=== PATIENT | female | born 1945 | race Caucasian/White ===

== ENCOUNTER → 2016-04-14 | Outpatient (CLI) | payer MEDICARE | LOC: RAD 12:43 | PROVIDERS: ATTEND Internal Medicine Critical Care Medicine | DX: R91.1 Solitary pulmonary nodule (principal) | CPT/HCPCS: 71250 ==

== ENCOUNTER 2016-04-28 15:46 | Emergency (ER) | payer MEDICARE ==
[2016-04-28 18:58] LABS: ABSOLUTE BASOPHILS # (AUTO) 0.1 10^3/uL (0.0-0.2); ABSOLUTE EOSINOPHILS # (AUTO) 0.1 10^3/uL (0.0-0.6); ABSOLUTE LYMPHOCYTES (AUTO) 2.1 10^3/uL (0.5-4.7); ABSOLUTE MONOCYTES (AUTO) 0.8 10^3/uL (0.1-1.4); ABSOLUTE NEUT (AUTO) 11.2 10^3/uL (1.7-8.2); BASOPHILS % (AUTO) 0.6 % (0-2); EOSINOPHILS % (AUTO) 0.4 % (0-6); HEMATOCRIT 33.3 % (36.0-47.0); HEMOGLOBIN 10.7 g/dL (12.0-15.5); HGB HCT DIFFERENCE -1.2; MEAN CORPUSCULAR HEMOGLOBIN 26.9 pg (27.0-33.4); MEAN CORPUSCULAR HGB CONC 32.2 g/dL (32.0-36.0); MEAN CORPUSCULAR VOLUME 83 fl (80-97); MONOCYTES % (AUTO) 5.8 % (3-13); RED BLOOD COUNT 3.99 10^6/uL (3.72-5.28); RED CELL DISTRIBUTION WIDTH 13.1 % (11.5-14.0); SEGMENTED NEUTROPHILS % (AUTO) 78.2 % (42-78); WHITE BLOOD COUNT 14.3 10^3/uL (4.0-10.5)
[2016-04-28 19:14] LABS: ALANINE AMINOTRANSFERASE 34 U/L (9-52); ALBUMIN 3.7 g/dL (3.5-5.0); ALKALINE PHOSPHATASE 94 U/L (38-126); ANION GAP 9 (5-19); ASPARTATE AMINO TRANSFERASE 151 U/L (14-36); BILIRUBIN,TOTAL 0.5 mg/dL (0.2-1.3); BLOOD UREA NITROGEN 18 mg/dL (7-20); CALCIUM 10.4 mg/dL (8.4-10.2); CARBON DIOXIDE 35 mmol/L (22-30); CHLORIDE 96 mmol/L (98-107); CREATINE KINASE 43 U/L (30-135); CREATININE RESULT 0.58 mg/dL (0.52-1.25); GLUCOSE 104 mg/dL (75-110); POTASSIUM 4.5 mmol/L (3.6-5.0); SODIUM 140.4 mmol/L (137-145); TOTAL PROTEIN 7.3 g/dL (6.3-8.2)
[2016-04-28 19:26] LABS: CREATINE KINASE MB 1.37 ng/mL (<4.55)
[2016-04-28 19:27] LABS: TROPONIN I < 0.012 ng/mL
--- NOTE | 2016-04-28 20:24 | ER Document Report ---
ED General - General Chief Complaint: Vertigo Stated Complaint: DIZZINESS Time seen by provider: 20:17 Mode of Arrival: Wheelchair Information source: Patient Notes: This is a 70-year-old female with a history of COPD (4 L oxygen), CHF and a history of a lung mass. The patient presents to the emergency room with left lip and tongue numbness with an episode of dizziness and "feeling drunk". The patient states she was sitting with her head down and reading a book for several hours and then when she brought her head up, she had some tenderness in the back of her skull and she had the above symptoms. The dizziness lasted for about 10 minutes. The left lip and tongue numbness lasted for approximately an hour or so. TRAVEL OUTSIDE OF THE [place] IN LAST 30 DAYS: No - HPI Onset: Just prior to arrival Onset/Duration: Sudden Quality of pain: Dull Severity: Mild Pain Level: 1 Associated symptoms: denies: Chills, Nonproductive cough, Productive cough, Fever Exacerbated by: Denies Relieved by: Denies Similar symptoms previously: No Recently seen / treated by doctor: No - Related Data Allergies/Adverse Reactions: ezetimibe [From Zetia] Adverse Reaction (Intermediate, Verified 09/27/15 10:03) feeling of something crawling under skin sertraline HCl [From Zoloft] Adverse Reaction (Intermediate, Verified 09/27/15 10:03) Skin Redness Past Medical History - General Information source: Patient - Social History Smoking Status: Former Smoker Cigarette use (# per day): No Chew tobacco use (# tins/day): No Frequency of alcohol use: None Drug Abuse: None Lives with: Alone Family History: Reviewed & Not Pertinent Patient has suicidal ideation: No Patient has homicidal ideation: No - Past Medical History Cardiac Medical History: Reports: Hx Atrial Fibrillation, Hx Congestive Heart Failure, Hx Hypertension - HYPO Denies: Hx Heart Attack - CHF Pulmonary Medical History: Reports: Hx Asthma, Hx COPD Neurological Medical History: Denies: Hx Cerebrovascular Accident, Hx Seizures GI Medical History: Denies: Hx Hepatitis, Hx Hiatal Hernia, Hx Ulcer Psychiatric Medical History: Denies: Hx Depression Infectious Medical History: Denies: Hx Hepatitis Past Surgical History: Reports: Hx Hysterectomy, Hx Mastectomy - BILAT, Hx Orthopedic Surgery - repair of pinched nerve, Hx Tonsillectomy. Denies: Hx Open Heart Surgery, Hx Pacemaker - Immunizations Hx Diphtheria, Pertussis, Tetanus Vaccination: Yes Hx Pneumococcal Vaccination: 03/30/12 Review of Systems - Review of Systems Constitutional: denies: Chills, Fever EENT: No symptoms reported Cardiovascular: No symptoms reported Respiratory: No symptoms reported Gastrointestinal: No symptoms reported Genitourinary: No symptoms reported Female Genitourinary: No symptoms reported Musculoskeletal: No symptoms reported Skin: No symptoms reported Hematologic/Lymphatic: No symptoms reported Neurological/Psychological: See HPI Physical Exam - Vital signs Vitals: Temp Pulse Resp BP Pulse Ox 98.1 F 77 18 126/66 H 98 04/28/16 16:40 04/28/16 16:40 04/28/16 16:40 04/28/16 16:40 04/28/16 16:40 Notes: Physical exam: GENERAL: The 10-year-old female, alert and oriented 3, no acute distress HEAD: Atraumatic, normocephalic. She has mild tenderness right over the insertion of the trapezius muscle insertion on the posterior skull on the left side. There is no palpable mass, warmth or fluctuance. EYES: Pupils equal round and reactive to light, extraocular movements intact, sclera anicteric, conjunctiva are normal. ENT: TMs normal, nares patent, oropharynx clear without exudates. Moist mucous membranes. NECK: Normal range of motion, supple without lymphadenopathy or JVD. LUNGS: Breath sounds clear to auscultation bilaterally and equal. No wheezes rales or rhonchi. HEART: Regular rate and rhythm without murmurs, rubs or gallops. ABDOMEN: Soft, nontender, normoactive bowel sounds. No guarding, no rebound. No masses appreciated. EXTREMITIES: Normal range of motion, no pitting or edema. No clubbing or cyanosis. NEUROLOGICAL: Cranial nerves II through XII grossly intact. Normal speech, cerebellar good (finger to nose), motor 5 over 5, sensory grossly intact, normal gait. PSYCH: Normal mood, normal affect. SKIN: Warm, Dry, normal turgor, no rashes or lesions noted. Course - Re-evaluation Re-evalutation: 04/28/16 20:21 Note: I discussed the options with the patient. Her symptoms are very consistent with a TIA. She does not want to be admitted. She is not a surgical candidate, so even if she had carotic disease, carotid endarterectomy would not be an option. I discussed the issue of blood then her if she did have any significant blockages in the carotids or any small emboli in the heart and an echo. The patient is adamantly against blood thinner. I have talked to her about taking aspirin, and she will think about it. She currently takes crude oil. She is afraid of bleeding at of significant bruising. She understands the risks that if this is a small irreversible stroke, she may be at risk of figure strokes. However, she has reached the decision to go home. I 've given her good instructions on returning if any worsening symptoms. The patient is accompanied by her sister and both are in agreement to the plan. 04/28/16 20:29 I did walk the patient around and she is feeling better. 04/28/16 20:29 - Vital Signs Vital signs: Temp Pulse Resp BP Pulse Ox 98.4 F 92 18 114/58 L 98 04/28/16 19:23 04/28/16 19:23 04/28/16 16:40 04/28/16 19:23 04/28/16 19:23 - Laboratory Result Diagrams: 04/28/16 18:18 04/28/16 18:18 Laboratory results interpreted by me: 04/28/16 04/28/16 18:18 18:18 WBC 14.3 H Hgb 10.7 L Hct 33.3 L MCH 26.9 L Seg Neutrophils % 78.2 H Absolute Neutrophils 11.2 H Chloride 96 L Carbon Dioxide 35 H Calcium 10.4 H AST 151 H - Diagnostic Test Radiology reviewed: Image reviewed, Reports reviewed - CT of the head shows no acute stroke. Chest x-ray shows no infiltrates (there is some scarring). - EKG Interpretation by Me Rate: Normal Rhythm: NSR - EKG shows normal sinus rhythm with a ventricular rate of 83, no acute ST-T wave changes Discharge - Discharge Clinical Impression: TIA Condition: Stable Disposition: HOME, SELF-CARE Instructions: Transient Ischemic Attack ([facility]) Additional Instructions: Recommendations: Continue current medicines. Consider baby aspirin a day. Follow-up with her doctor: Call the clinic tomorrow if you are going to go to the [facility] primary care [facility]. Return to the emergency room for worsening dizziness, any concerns he getting worse. Referrals: KAY MARTIN MD [Primary Care Provider] - Follow up as needed
[2016-04-28 20:56] VITALS: BP 128/88
--- NOTE | 2016-04-29 00:06 | EKG REPORT ---
SEVERITY:- OTHERWISE NORMAL ECG - SINUS RHYTHM BORDERLINE RIGHT AXIS DEVIATION : Confirmed by: Phani Ellsworth 29-Apr-2016 00:06:13
== END 2016-04-28 20:56 | disposition home or self-care (01) ==
LOC: ER 15:46
DX: G45.9 Transient cerebral ischemic attack, unspecified (principal); R42 Dizziness and giddiness; J44.9 Chronic obstructive pulmonary disease, unspecified; I50.9 Heart failure, unspecified; I10 Essential (primary) hypertension; I48.91 Unspecified atrial fibrillation; J45.909 Unspecified asthma, uncomplicated; Z99.81 Dependence on supplemental oxygen; Z90.710 Acquired absence of both cervix and uterus; Z90.13 Acquired absence of bilateral breasts and nipples; Z87.891 Personal history of nicotine dependence
CPT/HCPCS: 36415; 70450; 71010; 80053; 82550; 82553; 84484; 85025; 93005; 93010; 99284

== ENCOUNTER → 2016-07-23 | Outpatient (CLI) | payer MEDICARE | LOC: RAD 08:30 | PROVIDERS: ATTEND Internal Medicine Critical Care Medicine | DX: R91.8 Other nonspecific abnormal finding of lung field (principal); J18.9 Pneumonia, unspecified organism; J43.9 Emphysema, unspecified; R06.00 Dyspnea, unspecified; R13.19 Other dysphagia; K21.9 Gastro-esophageal reflux disease without esophagitis; Z87.891 Personal history of nicotine dependence | CPT/HCPCS: 71250 ==

== ENCOUNTER 2016-08-12 08:11 | Emergency (ER) | payer MEDICARE ==
--- NOTE | 2016-08-12 08:19 | ER Document Report ---
ED ENT - General Stated Complaint: FOREIGN OBJECT IN THROAT Time Seen by Provider: 08/12/16 08:16 Mode of Arrival: Ambulatory Information source: Patient Notes: 70-year-old oxygen dependent female with severe COPD complaining that she feels food or small piece of chicken go up and down between her posterior pharynx and upper esophagus. She feels like it is stuck. This is happened in the past and she also feels a lot of mucus. No fever or chills. No increased shortness of breath. No chest pain. TRAVEL OUTSIDE OF THE [place] IN LAST 30 DAYS: No - Related Data Allergies/Adverse Reactions: ezetimibe [From Zetia] Adverse Reaction (Intermediate, Verified 09/27/15 10:03) feeling of something crawling under skin sertraline HCl [From Zoloft] Adverse Reaction (Intermediate, Verified 09/27/15 10:03) Skin Redness Past Medical History - General Information source: Patient - Social History Smoking Status: Former Smoker Frequency of alcohol use: None Drug Abuse: None Lives with: Family Family History: Reviewed & Not Pertinent - Past Medical History Cardiac Medical History: Reports: Hx Atrial Fibrillation, Hx Congestive Heart Failure, Hx Hypertension - HYPO Pulmonary Medical History: Reports: Hx Asthma, Hx COPD Past Surgical History: Reports: Hx Hysterectomy, Hx Mastectomy - BILAT, Hx Orthopedic Surgery - repair of pinched nerve, Hx Tonsillectomy - Immunizations Hx Diphtheria, Pertussis, Tetanus Vaccination: Yes Hx Pneumococcal Vaccination: 03/30/12 Review of Systems - Review of Systems Constitutional: No symptoms reported EENT: See HPI Cardiovascular: No symptoms reported Respiratory: No symptoms reported Gastrointestinal: No symptoms reported Genitourinary: No symptoms reported Female Genitourinary: No symptoms reported Musculoskeletal: No symptoms reported Skin: No symptoms reported Hematologic/Lymphatic: No symptoms reported Neurological/Psychological: No symptoms reported Physical Exam - Vital signs Vitals: Temp Pulse Resp BP Pulse Ox 97.9 F 102 H 20 142/88 H 98 08/12/16 08:36 08/12/16 08:36 08/12/16 08:36 08/12/16 08:36 08/12/16 08:36 Interpretation: Normal - General General appearance: Alert Notes: Chronically ill appearing - HEENT Head: Normocephalic, Atraumatic Eyes: Normal Conjunctiva: Normal Pupils: PERRL Mucous membranes: Dry Pharynx: No: Erythema Neck: Supple. No: Lymphadenopathy - Respiratory Respiratory status: No respiratory distress Chest status: Nontender Breath sounds: Normal Chest palpation: Normal - Cardiovascular Rhythm: Regular Heart sounds: Normal auscultation Murmur: No - Abdominal Inspection: Normal Distension: No distension Bowel sounds: Normal Tenderness: Nontender Organomegaly: No organomegaly - Back Back: Normal, Nontender - Extremities General upper extremity: Normal inspection, Nontender, Normal color, Normal ROM , Normal temperature General lower extremity: Normal inspection, Nontender, Normal color, Normal ROM , Normal temperature, Normal weight bearing. No: Lida's sign - Neurological Neuro grossly intact: Yes Cognition: Normal Orientation: AAOx4 [place] Coma Scale Eye Opening: Spontaneous Ana Coma Scale Verbal: Oriented [place] Coma Scale Motor: Obeys Commands [place] Coma Scale Total: 15 Speech: Normal Motor strength normal: LUE, RUE, LLE, RLE Sensory: Normal - Psychological Associated symptoms: Normal affect, Normal mood - Skin Skin Temperature: Warm Skin Moisture: Dry Skin Color: Normal Skin irregularity: Rash Course - Re-evaluation Re-evalutation: 08/11/16 09:[address] Mei how to manage the patient. The soft tissue x-ray is negative. 08/11/16 10:30 pt feels alot better after the glucagon and is drinking moustapha tomas and eating applesauce. She feels like she can go home - Vital Signs Vital signs: Temp Pulse Resp BP Pulse Ox 98.0 F 114 H 20 135/68 H 97 08/12/16 11:20 08/12/16 11:20 08/12/16 08:36 08/12/16 11:20 08/12/16 11:20 Discharge - Discharge Clinical Impression: Sensation of foreign body in throat Chronic obstructive pulmonary disease Qualifiers: COPD type: unspecified COPD Qualified Code(s): J44.9 - Chronic obstructive pulmonary disease, unspecified Condition: Good Disposition: HOME, SELF-CARE Instructions: Chronic Obstructive Lung Disease ([facility]) Additional Instructions: see dr. cervantes for follow up to er if worse Please complete the patient satisfaction survey if you get one, and return it.. If you do not receive a survey, then you can go to the [facility] website, [email or web address] and place your comments about your very good care. Thank you very much. It was a pleasure being your medical provider today. Referrals: TANYA MCCAIN MD [ACTIVE STAFF] - Follow up as needed KAY MARTIN MD [Primary Care Provider] - Follow up as needed
[2016-08-12] MEDS ORDERED: GLUCAGON,HUMAN RECOMB 1 MG INJ SUBCUT ONE (09:10)
[2016-08-12 11:27] VITALS: BP 135/68
== END 2016-08-12 11:24 | disposition home or self-care (01) ==
LOC: ER 08:11
DX: T17.208A Unspecified foreign body in pharynx causing other injury, initial encounter (principal); J44.9 Chronic obstructive pulmonary disease, unspecified; Z87.891 Personal history of nicotine dependence
CPT/HCPCS: 99283; 96372; 70360; J1610

== ENCOUNTER → 2016-08-22 | Outpatient (CLI) | payer MEDICARE ==
--- NOTE | 2016-08-22 13:03 | RADIOLOGY REPORT (SQ) ---
EXAM DESCRIPTION: BARIUM SWALLOW ESOPHAGUS COMPLETED DATE/TIME: 08/22/2016 10:13 am REASON FOR STUDY: DYSPHAGIA R10.13 EPIGASTRIC PAIN COMPARISON: Barium swallow 12/31/2014 CT chest 07/23/2016 Soft tissue neck radiographs 08/12/2016 TECHNIQUE: Under fluoroscopic guidance, patient ingested thin barium. Fluoroscopic spot images and r outine radiographic images acquired and stored on PACS. 12 MM BARIUM TABLET GIVEN: Patient was unable to swallow the 12 mm barium tablet LIMITATIONS: None. FLUOROSCOPY TIME: 1 minutes 45 seconds 9 series of digital images saved to PACS. FINDINGS: NEUROMUSCULAR COORDINATION OF SWALLOW: Normal. No aspiration. ESOPHAGEAL MOTILITY: Prominent tertiary contractions. ESOPHAGEAL MUCOSA: Normal mucosa without masses or ulceration. GASTRO-ESOPHAGEAL JUNCTION: Small hiatal hernia without Schatzki's ring. Mild reflux throughout the study NON-GI TRACT STRUCTURES: Advanced changes of pulmonary fibrosis and obstructive lung disease. Periph erally calcified bilateral breast implants OTHER: No other significant finding. IMPRESSION: Small hiatal hernia with mild gastroesophageal reflux. No Schatzki's ring. Prominent t ertiary contractions. No subglottic aspiration. COMMENT: Quality ID [id number]: Final reports for procedures using fluoroscopy that document radiation exp osure indices, or exposure time and number of fluorographic images (if radiation exposure indices are not available) TECHNICAL DOCUMENTATION: JOB ID: [id number] [employer]- All Rights Reserved
== END ==
LOC: RAD 09:28
PROVIDERS: ATTEND Family Medicine
DX: R10.13 Epigastric pain (principal)
CPT/HCPCS: 74220

== ENCOUNTER 2016-09-08 07:13 | Emergency (ER) | payer MEDICARE ==
[2016-09-08 07:55] LABS: ABSOLUTE BASOPHILS # (AUTO) 0.1 10^3/uL (0.0-0.2); ABSOLUTE EOSINOPHILS # (AUTO) 0.1 10^3/uL (0.0-0.6); ABSOLUTE LYMPHOCYTES (AUTO) 1.4 10^3/uL (0.5-4.7); ABSOLUTE MONOCYTES (AUTO) 0.8 10^3/uL (0.1-1.4); ABSOLUTE NEUT (AUTO) 9.6 10^3/uL (1.7-8.2); BASOPHILS % (AUTO) 0.5 % (0-2); EOSINOPHILS % (AUTO) 0.5 % (0-6); HEMATOCRIT 33.2 % (36.0-47.0); HEMOGLOBIN 10.6 g/dL (12.0-15.5); HGB HCT DIFFERENCE -1.4; LYMPHOCYTES % (AUTO) 11.9 % (13-45); MEAN CORPUSCULAR HEMOGLOBIN 26.4 pg (27.0-33.4); MEAN CORPUSCULAR HGB CONC 31.9 g/dL (32.0-36.0); MEAN CORPUSCULAR VOLUME 83 fl (80-97); MONOCYTES % (AUTO) 6.8 % (3-13); RED BLOOD COUNT 4.02 10^6/uL (3.72-5.28); RED CELL DISTRIBUTION WIDTH 12.5 % (11.5-14.0); SEGMENTED NEUTROPHILS % (AUTO) 80.3 % (42-78); WHITE BLOOD COUNT 11.9 10^3/uL (4.0-10.5)
[2016-09-08 09:29] LABS: ALANINE AMINOTRANSFERASE 25 U/L (9-52); ALBUMIN 3.7 g/dL (3.5-5.0); ALKALINE PHOSPHATASE 94 U/L (38-126); ANION GAP 9 (5-19); ASPARTATE AMINO TRANSFERASE 163 U/L (14-36); BILIRUBIN,DIRECT 0.4 mg/dL (0.0-0.4); BILIRUBIN,TOTAL 0.4 mg/dL (0.2-1.3); BLOOD UREA NITROGEN 12 mg/dL (7-20); CARBON DIOXIDE 37 mmol/L (22-30); CHLORIDE 89 mmol/L (98-107); CREATININE RESULT 0.57 mg/dL (0.52-1.25); GLUCOSE 108 mg/dL (75-110); POTASSIUM 5.2 mmol/L (3.6-5.0); SODIUM 134.8 mmol/L (137-145); TOTAL PROTEIN 7.3 g/dL (6.3-8.2)
--- NOTE | 2016-09-08 10:13 | ER Document Report ---
ED General - General Chief Complaint: Cough Stated Complaint: DIFFICULTY BREATHING Time Seen by Provider: 09/08/16 07:15 Mode of Arrival: Ambulatory Information source: Patient Notes: 70-year-old female presents with complaints of a clot in her throat that she coughed up. Patient notes she feels like it is coming from her left nostril or from the side of her neck on the right. Patient denies any other concerns. pt seen multiple times for similar ocmplaints TRAVEL OUTSIDE OF THE [place] IN LAST 30 DAYS: No - HPI Onset: Other - 1 month Onset/Duration: Persistent Quality of pain: Achy Severity: Mild Pain Level: 1 Associated symptoms: None Exacerbated by: Denies Relieved by: Denies Similar symptoms previously: Yes Recently seen / treated by doctor: Yes - Related Data Allergies/Adverse Reactions: ezetimibe [From Zetia] Adverse Reaction (Intermediate, Verified 09/27/15 10:03) feeling of something crawling under skin sertraline HCl [From Zoloft] Adverse Reaction (Intermediate, Verified 09/27/15 10:03) Skin Redness Past Medical History - Social History Smoking Status: Former Smoker Cigarette use (# per day): No Chew tobacco use (# tins/day): No Smoking Education Provided: No Frequency of alcohol use: None Drug Abuse: None Family History: Reviewed & Not Pertinent - Past Medical History Cardiac Medical History: Reports: Hx Atrial Fibrillation, Hx Congestive Heart Failure, Hx Hypertension - HYPO Denies: Hx Heart Attack - CHF Pulmonary Medical History: Reports: Hx Asthma, Hx COPD Neurological Medical History: Denies: Hx Cerebrovascular Accident, Hx Seizures GI Medical History: Denies: Hx Hepatitis, Hx Hiatal Hernia, Hx Ulcer Psychiatric Medical History: Denies: Hx Depression Infectious Medical History: Denies: Hx Hepatitis Past Surgical History: Reports: Hx Hysterectomy, Hx Mastectomy - BILAT, Hx Orthopedic Surgery - repair of pinched nerve, Hx Tonsillectomy. Denies: Hx Open Heart Surgery, Hx Pacemaker - Immunizations Hx Diphtheria, Pertussis, Tetanus Vaccination: Yes Hx Pneumococcal Vaccination: 03/30/12 Review of Systems - Review of Systems Notes: REVIEW OF SYSTEMS: CONSTITUTIONAL : Denies fever, chills, or sweats. Denies recent illness. EENT: admits to right neck swelling CARDIOVASCULAR: Denies chest pain. Denies palpitations or racing or irregular heart beat. Denies ankle edema. RESPIRATORY: Denies cough, cold, or chest congestion. Denies shortness of breath, difficulty breathing, or wheezing. GASTROINTESTINAL: Denies abdominal pain or distention. Denies nausea, vomiting , or diarrhea. Denies blood in vomitus, stools, or per rectum. Denies black, tarry stools. Denies constipation. GENITOURINARY: Denies difficulty urinating, painful urination, burning, frequency, blood in urine, or discharge. FEMALE GENITOURINARY: Denies vaginal bleeding, heavy or abnormal periods, irregular periods. Denies vaginal discharge or odor. MUSCULOSKELETAL: Denies back or neck pain or stiffness. Denies joint pain or swelling. SKIN: Denies rash, lesions or sores. HEMATOLOGIC : Denies easy bruising or bleeding. LYMPHATIC: Denies swollen, enlarged glands. NEUROLOGICAL: Denies confusion or altered mental status. Denies passing out or loss of consciousness. Denies dizziness or lightheadedness. Denies headache. Denies weakness or paralysis or loss of use of either side. Denies problems with gait or speech. Denies sensory loss, numbness, or tingling. Denies seizures. PHYSICAL EXAMINATION: GENERAL: Well-appearing, well-nourished and in no acute distress. HEAD: Atraumatic, normocephalic. EYES: Pupils equal round and reactive to light, extraocular movements intact, conjunctiva are normal. ENT: Nares patent , possible left nasal polyp, oropharynx clear without exudates. Moist mucous membranes. NECK: Normal range of motion, supple without lymphadenopathy LUNGS: Breath sounds clear to auscultation bilaterally and equal. No wheezes rales or rhonchi. HEART: Regular rate and rhythm without murmurs ABDOMEN: Soft, nontender, nondistended abdomen. No guarding, no rebound. No masses appreciated. Female : deferred Musculoskeletal: Normal range of motion, no pitting or edema. No cyanosis. NEUROLOGICAL: Cranial nerves grossly intact. Normal speech, normal gait. Normal sensory, motor exams PSYCH: Normal mood, normal affect. SKIN: Warm, Dry, normal turgor, no rashes or lesions noted. PSYCHIATRIC: Denies anxiety or stress. Denies depression, suicidal ideation, or homicidal ideation. ALL OTHER SYSTEMS REVIEWED AND NEGATIVE. Dictation was performed using [email or web address] recognition software Course - Re-evaluation Re-evalutation: 09/08/16 10:13 I believe patient's complaints are secondary to nasal polyp which is causing her bleeding. Patient otherwise looks well is in no distress CT has been ordered to rule out any other abnormality 09/08/16 11:53 CT noted no obvious abnormality, I believe the patient's symptoms may be secondary to this nasal irritation, I believe she is having blood come back to her throat notes when she has the symptoms. Otherwise patient looks well is in no distress, she is noted to be tachycardic which appears to be her baseline when she is quite anxious After performing a Medical Screening Examination, I estimate there is LOW risk for CENTRAL CORD SYNDROME, EPIDURAL MASS LESION, SEVERE SPINAL STENOSIS, ARTERIAL DISSECTION, MENINGITIS, or ACUTE CORONARY SYNDROME, thus I consider the discharge disposition reasonable. I have reevaluated this patient multiple times and no significant life threatening changes are noted. The patient and I have discussed the diagnosis and risks, and we agree with discharging home to follow-up on an outpatient basis with the understanding that symptoms and presentations can change. We also discussed returning to the Emergency Department immediately if new or worsening symptoms occur. We have discussed the symptoms which are most concerning (e.g., saddle anesthesia, urinary or bowel incontinence or retention, changing or worsening pain) that necessitate immediate return. - Laboratory Result Diagrams: 09/08/16 07:45 09/08/16 08:55 Laboratory results interpreted by me: 09/08/16 09/08/16 07:45 08:55 WBC 11.9 H Hgb 10.6 L Hct 33.2 L MCH 26.4 L MCHC 31.9 L Seg Neutrophils % 80.3 H Lymphocytes % 11.9 L Absolute Neutrophils 9.6 H Sodium 134.8 L Potassium 5.2 H Chloride 89 L Carbon Dioxide 37 H AST 163 H - Diagnostic Test Radiology reviewed: Image reviewed, Reports reviewed Discharge - Discharge Clinical Impression: Chronic obstruct airways disease Qualifiers: COPD type: chronic bronchitis Chronic bronchitis type: simple Qualified Code(s) : J41.0 - Simple chronic bronchitis Dysphagia Qualifiers: Dysphagia type: oral phase Qualified Code(s): R13.11 - Dysphagia, oral phase Condition: Stable Disposition: HOME, SELF-CARE Additional Instructions: Please contact the following office for an appointment tomorrow or returm immediately if there are any other concerns [facility] Address: [address] [place] [address], [place] [address] Referrals: TRUDY MERCER MD [Primary Care Provider] - Follow up as needed
--- NOTE | 2016-09-08 11:46 | RADIOLOGY REPORT (SQ) ---
EXAM DESCRIPTION: CT SOFT TISSUE NECK WITH COMPLETED DATE/TIME: 09/08/2016 10:59 am REASON FOR STUDY: neck pain COMPARISON: None. TECHNIQUE: Post IV contrasted scanning from skull base through lung apices with review of bone, soft tissue and lung windows. Reconstructed coronal and sagittal MPR images reviewed. All images stored on PACS. All CT scanners at this facility use dose modulation, iterative reconstruction, and/or weight based d osing when appropriate to reduce radiation dose to as low as reasonably achievable (ALARA). [facility]: Dose Right [facility]: CareDose [facility]: Dose Right [facility]: Teradose 4D [facility]: [employer] CONTRAST TYPE AND DOSE: 75 Isovue 370- low osmolar. RENAL FUNCTION: Creatinine 0.57 RADIATION DOSE: mGy. LIMITATIONS: Study is limited somewhat due to artifact related to dental hardware. FINDINGS: SKULL BASE: Intact. MAJOR SALIVARY GLANDS: No solid or cystic masses. No inflammatory changes. LYMPHADENOPATHY: No adenopathy. MUCOSAL MASSES OR ASYMMETRY: No mucosal masses or asymmetry. LARYNX/CORDS: No abnormal findings. VASCULAR STRUCTURES: The major vessels are patent. LUNG APICES: Extensive chronic appearing emphysematous and bullous changes are identified. BONES: Intact. THYROID: Normal size. No masses. PARANASAL SINUSES: Clear. OTHER: No other significant finding. IMPRESSION: Somewhat limited study as noted above. NO SIGNIFICANT FINDING IN THE SOFT TISSUES OF TH E NECK. TECHNICAL DOCUMENTATION: JOB ID: [id number] Quality ID # [id number]: Final reports with documentation of one or more dose reduction techniques (e.g., Au tomated exposure control, adjustment of the mA and/or kV according to patient size, use of iterative reconstruction technique) 2010 [employer]- All Rights Reserved
[2016-09-08 12:22] VITALS: BP 116/67
== END 2016-09-08 12:25 | disposition home or self-care (01) ==
LOC: ER 07:13
DX: R13.11 Dysphagia, oral phase (principal); J41.0 Simple chronic bronchitis; R22.1 Localized swelling, mass and lump, neck; Z87.891 Personal history of nicotine dependence; R00.0 Tachycardia, unspecified
CPT/HCPCS: 36415; 70491; 80053; 85025; 99285

== ENCOUNTER 2016-09-21 11:36 | Inpatient (IN) | payer MEDICARE ==
--- NOTE | 2016-09-21 11:48 | ER Document Report ---
ED Respiratory Problem - General Mode of Arrival: Medic Information source: Patient TRAVEL OUTSIDE OF THE [place] IN LAST 30 DAYS: No - HPI Patient complains to provider of: COPD, Short of breath Duration: Worse/persistent <ELLI DURAND - Last Filed: 09/21/16 12:05> <NAUN LIM - Last Filed: 09/21/16 13:45> - General Stated Complaint: DIFFICULTY BREATHING Time Seen by Provider: 09/21/16 11:40 Notes: Patient is a 70-year-old female who presents to the emergency department today with complaints of shortness of breath. Patient has a history of COPD. Patient states that she has an extensive smoking history however she quit smoking approximately 7 years ago. Patient is on home oxygen, 3.5-4 L. (ELLI DURAND) - Related Data Allergies/Adverse Reactions: ezetimibe [From Zetia] Adverse Reaction (Intermediate, Verified 09/27/15 10:03) feeling of something crawling under skin sertraline HCl [From Zoloft] Adverse Reaction (Intermediate, Verified 09/27/15 10:03) Skin Redness Past Medical History - General Information source: Patient - Social History Smoking Status: Former Smoker Cigarette use (# per day): No Frequency of alcohol use: None Drug Abuse: None Family History: Reviewed & Not Pertinent - Past Medical History Cardiac Medical History: Reports: Hx Atrial Fibrillation, Hx Congestive Heart Failure, Hx Hypertension - HYPO Pulmonary Medical History: Reports: Hx Asthma, Hx COPD Past Surgical History: Reports: Hx Hysterectomy, Hx Mastectomy - BILAT, Hx Orthopedic Surgery - repair of pinched nerve, Hx Tonsillectomy - Immunizations Hx Diphtheria, Pertussis, Tetanus Vaccination: Yes Hx Pneumococcal Vaccination: 03/30/12 <ELLI DURAND - Last Filed: 09/21/16 12:05> Review of Systems - Review of Systems Constitutional: No symptoms reported EENT: No symptoms reported Cardiovascular: No symptoms reported Respiratory: See HPI, Short of breath Gastrointestinal: See HPI, Nausea. denies: Vomiting Genitourinary: No symptoms reported Female Genitourinary: No symptoms reported Musculoskeletal: No symptoms reported Skin: No symptoms reported Hematologic/Lymphatic: No symptoms reported Neurological/Psychological: No symptoms reported -: Yes All other systems reviewed and negative <ELLI DURAND - Last Filed: 09/21/16 12:05> Physical Exam - Vital signs Interpretation: Tachycardic, Hypoxic, Tachypneic - General General appearance: Alert In distress: Moderate - HEENT Head: Normocephalic, Atraumatic Extraocular movements intact: Yes Pupils: PERRL Mucous membranes: Dry Pharynx: Normal Neck: Normal - Respiratory Respiratory status: Respiratory distress, Retractions, Tachypnea Breath sounds: Decreased air movement, Wheezing - Cardiovascular Rhythm: Regular, Tachycardia - Abdominal Inspection: Normal Bowel sounds: Normal Tenderness: Nontender - Back Back: Normal, Nontender - Extremities General upper extremity: Normal inspection, Normal ROM General lower extremity: Normal inspection, Normal ROM - Neurological Neuro grossly intact: Yes Cognition: Normal Orientation: AAOx4 Ana Coma Scale Eye Opening: Spontaneous Industry Coma Scale Verbal: Oriented Industry Coma Scale Motor: Obeys Commands Industry Coma Scale Total: 15 Motor strength normal: LUE, RUE, LLE, RLE - Psychological Associated symptoms: Normal affect, Normal mood - Skin Skin Temperature: Warm Skin Moisture: Dry Skin Color: Normal <NAUN LIM - Last Filed: 09/21/16 13:45> - Vital signs Vitals: Temp Pulse Resp BP Pulse Ox 98.1 F 105 H 30 H 145/83 H 98 09/21/16 11:41 09/21/16 11:41 09/21/16 11:41 09/21/16 11:41 09/21/16 11:41 Course - Laboratory Result Diagrams: 09/21/16 11:50 09/21/16 11:50 <ELLI DURAND - Last Filed: 09/21/16 12:05> - Laboratory Result Diagrams: 09/21/16 11:50 09/21/16 11:50 <NAUN LIM - Last Filed: 09/21/16 13:45> - Re-evaluation Re-evalutation: 09/21/16 13:00 Improving respiratory status. 09/21/16 13:42 Patient is a 70-year-old female who comes in with difficulty breathing. Patient has a history of COPD and heart failure. No evidence for heart failure today. Patient continues to wheeze despite being on BiPAP and receiving nebulizer treatments, Solu-Medrol, and magnesium. Patient does not have any evidence for pneumonia on chest x-ray. Patient does not want to be intubated or put on a ventilator. Patient will be admitted for COPD exacerbation, respiratory distress which is resolving, and hypoxemia. Stable time of admission. Agrees with plan. (NAUN LIM) - Vital Signs Vital signs: Temp Pulse Resp BP Pulse Ox 98.1 F 105 H 24 H 118/99 H 95 09/21/16 11:41 09/21/16 11:41 09/21/16 12:01 09/21/16 12:00 09/21/16 12:01 - Laboratory Laboratory results interpreted by me: 09/21/16 09/21/16 09/21/16 11:50 11:50 11:50 WBC 18.9 H Hgb 9.9 L Hct 31.5 L MCH 25.5 L MCHC 31.5 L Seg Neutrophils % 87.0 H Lymphocytes % 7.4 L Absolute Neutrophils 16.4 H VBG pCO2 75.8 H* VBG HCO3 36.3 H Sodium 131.0 L Chloride 86 L Carbon Dioxide 38 H Glucose 225 H AST 163 H Critical Care Note - Critical Care Note Total time excluding time spent on procedures (mins): 45 - Evaluation and management of respiratory distress, management of airway, couple re-evaluations , coordination of admission, counseling of patient <NAUN LIM - Last Filed: 09/21/16 13:45> Discharge <ELLI DURAND - Last Filed: 09/21/16 12:05> - Discharge Admitting Provider: Will Unit Admitted: Telemetry <NAUN LIM - Last Filed: 09/21/16 13:45> - Discharge Clinical Impression: Respiratory distress, COPD exacerbation, Hypoxemia Condition: Stable Disposition: ADMITTED INPATIENT Referrals: TRUDY MERCER MD [Primary Care Provider] - Follow up as needed Scribe Attestation: 09/21/16 13:44 I personally performed the services described in the documentation, reviewed and edited the documentation which was dictated to the scribe in my presence, and it accurately records my words and actions. (NAUN LIM) Scribe Documentation - Scribe Written by Stephenibe:: Claude Alvarez, 09/21/2016 1206 acting as scribe for :: Tim <ELLI DURAND - Last Filed: 09/21/16 12:05>
[2016-09-21 12:09] LABS: VENOUS BLOOD BASE EXCESS 7.7 mmol/L; VENOUS BLOOD HCO3 36.3 mmol/L (20-32); VENOUS BLOOD PH 7.3 (7.30-7.42)
[2016-09-21 12:13] LABS: ABSOLUTE LYMPHOCYTES (AUTO) 1.4 10^3/uL (0.5-4.7); ABSOLUTE NEUT (AUTO) 16.4 10^3/uL (1.7-8.2); BASOPHILS % (AUTO) 0.2 % (0-2); EOSINOPHILS % (AUTO) 0.1 % (0-6); HEMATOCRIT 31.5 % (36.0-47.0); HEMOGLOBIN 9.9 g/dL (12.0-15.5); HGB HCT DIFFERENCE -1.8; LYMPHOCYTES % (AUTO) 7.4 % (13-45); MEAN CORPUSCULAR HEMOGLOBIN 25.5 pg (27.0-33.4); MEAN CORPUSCULAR HGB CONC 31.5 g/dL (32.0-36.0); MEAN CORPUSCULAR VOLUME 81 fl (80-97); MONOCYTES % (AUTO) 5.3 % (3-13); RED BLOOD COUNT 3.89 10^6/uL (3.72-5.28); RED CELL DISTRIBUTION WIDTH 12.8 % (11.5-14.0); WHITE BLOOD COUNT 18.9 10^3/uL (4.0-10.5)
[2016-09-21 12:14] LABS: VENOUS BLOOD PCO2 75.8 mmHg (35-63)
[2016-09-21 12:16] LABS: PROTHROMBIN TIME 12.9 SEC (11.4-15.4)
[2016-09-21] MEDS: MAGNESIUM SULFATE/D5W 100 ML IV SCH ×2 (12:25→13:24)
[2016-09-21 12:27] LABS: ALANINE AMINOTRANSFERASE 31 U/L (9-52); ALBUMIN 3.5 g/dL (3.5-5.0); ALKALINE PHOSPHATASE 99 U/L (38-126); ANION GAP 7 (5-19); ASPARTATE AMINO TRANSFERASE 163 U/L (14-36); BILIRUBIN,DIRECT 0.4 mg/dL (0.0-0.4); BILIRUBIN,TOTAL 0.4 mg/dL (0.2-1.3); BLOOD UREA NITROGEN 13 mg/dL (7-20); CALCIUM 9.5 mg/dL (8.4-10.2); CARBON DIOXIDE 38 mmol/L (22-30); CHLORIDE 86 mmol/L (98-107); CREATININE RESULT 0.52 mg/dL (0.52-1.25); GLUCOSE 225 mg/dL (75-110); POTASSIUM 4.6 mmol/L (3.6-5.0); TOTAL PROTEIN 7.4 g/dL (6.3-8.2)
--- NOTE | 2016-09-21 12:41 | RADIOLOGY REPORT (SQ) ---
EXAM DESCRIPTION: CHEST SINGLE VIEW COMPLETED DATE/TIME: 09/21/2016 12:31 pm REASON FOR STUDY: sob COMPARISON: 04/28/2016, CT 07/23/2016 EXAM PARAMETERS: NUMBER OF VIEWS: One view. TECHNIQUE: Single frontal radiographic view of the chest acquired. RADIATION DOSE: NA LIMITATIONS: None. FINDINGS: LUNGS AND PLEURA: Severe chronic changes with bullous emphysema and scarring. Mass seen o n CT is not seen on chest radiograph. Severe COPD. MEDIASTINUM AND HILAR STRUCTURES: No masses. Contour normal. HEART AND VASCULAR STRUCTURES: Heart normal in size. Normal vasculature. BONES: No acute findings. HARDWARE: None in the chest. OTHER: No other significant finding. IMPRESSION: Severe chronic changes with COPD and scarring. No acute process. TECHNICAL DOCUMENTATION: JOB ID: [id number]
[2016-09-21 12:42] LABS: TROPONIN I < 0.012 ng/mL
[2016-09-21] MEDS ORDERED: LEVOFLOXACIN 750 MG/D5W RTU 150 ML IV ONE (13:38)
[2016-09-21] MEDS ORDERED: IPRATROPIUM/ALBUTEROL 0.5-2.5 MG/3 ML AMPUL NEB ONE ×2 (13:38→13:41)
[2016-09-21 13:45] LABS: APPEARANCE,URINE CLEAR; BILIRUBIN,URINE NEGATIVE (NEGATIVE); GLUCOSE, URINE NEGATIVE (NEGATIVE); KETONES,URINE NEGATIVE (NEGATIVE); LEUKOCYTE ESTERASE,URINE NEGATIVE (NEGATIVE); NITRITE,URINE NEGATIVE (NEGATIVE); PROTEIN,URINE NEGATIVE (NEGATIVE); URINE SPECIFIC GRAVITY 1.002; UROBILINOGEN,URINE NEGATIVE mg/dL (<2.0)
--- NOTE | 2016-09-21 15:15 | EKG REPORT ---
SEVERITY:- ABNORMAL ECG - SINUS TACHYCARDIA RIGHT ATRIAL ABNORMALITY BORDERLINE RIGHT AXIS DEVIATION : Confirmed by: Phani Ellsworth 21-Sep-2016 15:15:00
[2016-09-21] MEDS ORDERED: IPRATROPIUM/ALBUTEROL 0.5-2.5 MG/3 ML AMPUL NEB PRN (16:14)
[2016-09-21] MEDS ORDERED: ALBUTEROL SULFATE HFA (90 MCG/PUFF) 200 PUFF/8.5 GM MDI IH PRN (17:31)
[2016-09-21] MEDS: METHYLPREDNISOLONE INJ 125 MG/2 ML SDV IV SCH ×2 (18:18→23:17)
[2016-09-21] MEDS: MONTELUKAST SODIUM 10 MG TABLET PO SCH (21:15)
[2016-09-21] MEDS: DILTIAZEM HCL 60 MG TABLET PO SCH (21:16)
[2016-09-21] MEDS: FAMOTIDINE 20 MG TABLET PO SCH (21:16)
[2016-09-21] MEDS ORDERED: FLUTICASONE/SALMETEROL DISKUS 500-50 MCG/DOSE IH ONE (21:28)
[2016-09-21] MEDS: IPRATROPIUM/ALBUTEROL 0.5-2.5 MG/3 ML AMPUL NEB PRN (21:37)
[2016-09-21] MEDS: FLUTICASONE/SALMETEROL DISKUS 500-50 MCG/DOSE IH SCH (21:56)
[2016-09-22 05:05] LABS: ABSOLUTE LYMPHOCYTES (AUTO) 0.5 10^3/uL (0.5-4.7); ABSOLUTE NEUT (AUTO) 7.5 10^3/uL (1.7-8.2); HEMATOCRIT 31.3 % (36.0-47.0); HEMOGLOBIN 9.9 g/dL (12.0-15.5); HGB HCT DIFFERENCE -1.6; LYMPHOCYTES % (AUTO) 5.8 % (13-45); MEAN CORPUSCULAR HEMOGLOBIN 25.9 pg (27.0-33.4); MEAN CORPUSCULAR HGB CONC 31.5 g/dL (32.0-36.0); MEAN CORPUSCULAR VOLUME 82 fl (80-97); MONOCYTES % (AUTO) 0.6 % (3-13); RED BLOOD COUNT 3.81 10^6/uL (3.72-5.28); RED CELL DISTRIBUTION WIDTH 12.9 % (11.5-14.0); SEGMENTED NEUTROPHILS % (AUTO) 93.6 % (42-78); WHITE BLOOD COUNT 8.1 10^3/uL (4.0-10.5)
[2016-09-22 05:35] LABS: ANION GAP 9 (5-19); BLOOD UREA NITROGEN 10 mg/dL (7-20); CALCIUM 9.8 mg/dL (8.4-10.2); CARBON DIOXIDE 37 mmol/L (22-30); CHLORIDE 90 mmol/L (98-107); CREATININE RESULT 0.46 mg/dL (0.52-1.25); GLUCOSE 215 mg/dL (75-110); POTASSIUM 5.1 mmol/L (3.6-5.0); SODIUM 135.7 mmol/L (137-145)
[2016-09-22] MEDS: METHYLPREDNISOLONE INJ 125 MG/2 ML SDV IV SCH ×3 (05:56→17:49)
[2016-09-22] MEDS: DILTIAZEM HCL 60 MG TABLET PO SCH ×3 (05:56→21:41)
[2016-09-22] MEDS: IPRATROPIUM/ALBUTEROL 0.5-2.5 MG/3 ML AMPUL NEB PRN ×2 (08:53→14:43)
[2016-09-22] MEDS: ROFLUMILAST 500 MCG TABLET PO SCH (09:44)
[2016-09-22] MEDS: FAMOTIDINE 20 MG TABLET PO SCH ×2 (09:44→21:41)
[2016-09-22] MEDS: CETIRIZINE 10 MG TABLET PO SCH (09:44)
[2016-09-22] MEDS: MULTIVITAMIN TABLET PO SCH (09:45)
[2016-09-22] MEDS: FLUTICASONE/SALMETEROL DISKUS 500-50 MCG/DOSE IH SCH ×2 (09:45→21:41)
[2016-09-22] MEDS: LEVOFLOXACIN 750 MG/D5W RTU 750 MG/150 ML RTUPB IV SCH (09:45)
[2016-09-22] MEDS: TIOTROPIUM BROMIDE DPI 5 CAP/KIT (18 MCG/CAP) IH SCH (09:46)
[2016-09-22] MEDS ORDERED: LISINOPRIL 10 MG TABLET PO SCH (10:00)
[2016-09-22] MEDS: [UNRECOGNIZED DRUG - OTHER] PO SCH (11:10)
[2016-09-22] MEDS: NYSTATIN/DEXAMETH/DIPHEN SUSP 120 ML PO SCH ×2 (11:12→17:52)
--- NOTE | 2016-09-22 11:14 | PDOC H&P ---
History of Present Illness Admission Date/PCP: 09/21/16 14:00 TRUDY MERCER MD Patient complains of: Shortness of the breath History of Present Illness: MANUEL ARGUETA is a 70 year old female This 70-year-old female with a Significant history of the COPD with advanced emphysema and a 3-4 L oxygen at home and also currently see a Dr. Richey as outpatient. Patients came to the emergency department with increasing the shortness of the breath with increasing more cough and patient's white count was elevated and the patient was started on IV steroid and IV antibioticAnd admitting in the hospital Patient is currently doing much better patient's wheezing is all resolved and patient's white count is also better to Patients have a CT of the chest was done by her pulmonary in March 2016 for some nodules and presence currently follow with him Patient also have abnormal liver enzyme and all workup done in the past and was stable Past Medical History Cardiac Medical History: Reports: Atrial Fibrillation, Congestive Heart Failure , Hypertension - HYPO Denies: Myocardial Infarction - CHF Pulmonary Medical History: Reports: Asthma, Chronic Obstructive Pulmonary Disease (COPD) Neurological Medical History: Denies: Seizures GI Medical History: Denies: Hepatitis, Hiatal Hernia Psychiatric Medical History: Denies: Depression Hematology: Reports: Anemia - IRON INFUSION 4 MO AGO Denies: Sickle Cell Disease Past Surgical History Past Surgical History: Reports: Hysterectomy, Mastectomy - BILAT, Orthopedic Surgery - repair of pinched nerve, Tonsillectomy Denies: Amputation, Pacemaker Social History Smoking Status: Former Smoker Last Time Smoked: 2009 Frequency of Alcohol Use: None Hx Recreational Drug Use: No Drugs: None Hx Prescription Drug Abuse: No Family History Family History: Reviewed & Not Pertinent Parental Family History Reviewed: Yes Children Family History Reviewed: Yes Sibling(s) Family History Reviewed.: Yes Medication/Allergy Home Medications: Albuterol Sulfate [Proair HFA Inhalation Aerosol 8.5 gm MDI] 1 puff IH Q4HP PRN 09/21/16 Cetirizine HCl [Zyrtec 10 mg Tablet] 10 mg PO DAILY 09/21/16 Diltiazem HCl [Cardizem 60 mg Tablet] 60 mg PO Q8 09/21/16 Famotidine [Pepcid 20 mg Tablet] 20 mg PO BID 09/21/16 Fluticasone/Salmeterol [Advair 500-50 Diskus 14 Dose/Diskus] 1 puff IH Q12 09/21 Ipratropium/Albuterol Sulfate [Iprat-Albut 0.5-3(2.5) mg/3 ml] 3 ml IH Q6HP PRN 09/21/16 Lisinopril [Prinivil] 20 mg PO DAILY 09/21/16 Montelukast Sodium [Singulair 10 mg Tablet] 10 mg PO QPM 09/21/16 Multivitamin [Tab-A-Jared] 1 tab PO DAILY 09/21/16 Roflumilast [Daliresp 500 mcg Tablet] 500 mg PO DAILY 09/21/16 Tiotropium [place] [Spiriva Handihaler 5 Cap/Kit (18 Mcg/Cap)] 1 puff IH DAILY 09/21/16 Allergies/Adverse Reactions: ezetimibe [From Zetia] Adverse Reaction (Intermediate, Verified 09/27/15 10:03) feeling of something crawling under skin sertraline HCl [From Zoloft] Adverse Reaction (Intermediate, Verified 09/27/15 10:03) Skin Redness Review of Systems Constitutional: PRESENT: fatigue. ABSENT: chills, fever(s), headache(s), weight gain, weight loss Eyes: ABSENT: visual disturbances Ears: ABSENT: hearing changes Cardiovascular: PRESENT: dyspnea on exertion. ABSENT: chest pain, edema, orthropnea, palpitations Respiratory: PRESENT: cough, dyspnea, sputum. ABSENT: hemoptysis Gastrointestinal: ABSENT: abdominal pain, constipation, diarrhea, hematemesis, hematochezia, nausea, vomiting Genitourinary: ABSENT: dysuria, hematuria Musculoskeletal: ABSENT: joint swelling Integumentary: ABSENT: rash, wounds Neurological: ABSENT: abnormal gait, abnormal speech, confusion, dizziness, focal weakness, syncope Psychiatric: ABSENT: anxiety, depression, homidical ideation, suicidal ideation Endocrine: ABSENT: cold intolerance, heat intolerance, menstrual abnormalities, polydipsia, polyuria Hematologic/Lymphatic: ABSENT: easy bleeding, easy bruising, lymphadenopathy Physical Exam Vital Signs: Temp Pulse Resp BP Pulse Ox 98.3 F 93 22 H 125/59 L 97 09/22/16 07:29 09/22/16 07:29 09/22/16 07:29 09/22/16 07:29 09/22/16 07:29 Intake & Output 09/21/16 09/22/16 09/23/16 06:59 06:59 06:59 Intake Total 1615 Balance 1615 Weight 33.4 kg General appearance: PRESENT: no acute distress, thin Head exam: PRESENT: atraumatic, normocephalic Eye exam: PRESENT: conjunctiva pink, EOMI, PERRLA. ABSENT: scleral icterus Ear exam: PRESENT: normal external ear exam Mouth exam: PRESENT: moist, tongue midline Neck exam: PRESENT: full ROM. ABSENT: carotid bruit, JVD, lymphadenopathy, thyromegaly Respiratory exam: PRESENT: clear to auscultation valerie Cardiovascular exam: PRESENT: RRR. ABSENT: diastolic murmur, rubs, systolic murmur Pulses: PRESENT: normal dorsalis pedis pul, +2 pedal pulses bilateral Vascular exam: PRESENT: normal capillary refill GI/Abdominal exam: PRESENT: normal bowel sounds, soft. ABSENT: distended, guarding, mass, organolmegaly, rebound, tenderness Rectal exam: PRESENT: deferred Neurological exam: PRESENT: alert, awake, oriented to person, oriented to place , oriented to time, oriented to situation, CN II-XII grossly intact. ABSENT: motor sensory deficit Psychiatric exam: PRESENT: appropriate affect, normal mood. ABSENT: homicidal ideation, suicidal ideation Skin exam: PRESENT: dry, intact, warm. ABSENT: cyanosis, rash Results Laboratory Results: 09/22/16 04:03 09/22/16 04:03 09/22/16 09/22/16 04:03 04:03 WBC 8.1 RBC 3.81 Hgb 9.9 L Hct 31.3 L MCV 82 MCH 25.9 L MCHC 31.5 L RDW 12.9 Plt Count 346 Seg Neutrophils % 93.6 H Lymphocytes % 5.8 L Monocytes % 0.6 L Eosinophils % 0.0 Basophils % 0.0 Absolute Neutrophils 7.5 Absolute Lymphocytes 0.5 Absolute Monocytes 0.0 L Absolute Eosinophils 0.0 Absolute Basophils 0.0 Sodium 135.7 L Potassium 5.1 H Chloride 90 L Carbon Dioxide 37 H Anion Gap 9 BUN 10 Creatinine 0.46 L Est GFR ( Amer) > 60 Est GFR (Non-Af Amer) > 60 Glucose 215 H Calcium 9.8 Impressions: Chest X-Ray 09/21/16 11:41 IMPRESSION: Severe chronic changes with COPD and scarring. No acute process. Assessment & Plan - Diagnosis (1) COPD exacerbation Is this a current diagnosis for this admission?: YesPlan: Start the patient on IV Solu-Medrol and consult the pulmonary continues to monitor the patient (2) Respiratory distress Is this a current diagnosis for this admission?: YesPlan: Currently stable will get the ABG (3) Bronchial pneumonia Is this a current diagnosis for this admission?: YesPlan: Continues the IV antibiotic get the sputum culture (4) Hypertension Qualifiers: Hypertension type: essential hypertension Qualified Code(s): I10 - Essential (primary) hypertension Is this a current diagnosis for this admission?: YesPlan: Currently all stable (5) Osteoarthritis Qualifiers: Osteoarthritis location: unspecified site Is this a current diagnosis for this admission?: YesPlan: Stable (6) Congestive heart failure Qualifiers: Congestive heart failure type: diastolic Congestive heart failure chronicity: chronic Qualified Code(s): I50.32 - Chronic diastolic ( congestive) heart failure Is this a current diagnosis for this admission?: YesPlan: Currently stable with current medications (7) Pulmonary nodule Is this a current diagnosis for this admission?: YesPlan: Patient's currently see her Dr. rich will get the CT of the chest - Time Medications reviewed and adjusted accordingly: Yes Anticipated discharge: Home Within: Other - Inpatient Certification Medical Necessity: Need Close Monitoring Due to Risk of Patient Decompensation, Need for IV Antibiotics Post Hospital Care: D/C Carton Wrapper Documentation - Plan Summary Plan Summary: Discussed with the patient about the all the test results patient is getting better will continues to current medications and adjust the dose of the Solu- Medrol
--- NOTE | 2016-09-22 12:40 | Physician Advisory Note ---
Physician Advisor ProgressNote .: Pursuant to the plan for Wendi Ford, I have reviewed the medical record for this patient. Physician Advisor Statement: Nice documentation of chronic diastolic CHF. Please consider documentin. "Acute on Chronic hypoxemic & hypercarbic respiratory failure requiring 3.5- 4L O2 at baseline, with accessory muscle use & retractions in ED, requiring Bipap initially" 2. *Documentation needs to make explicit each day why pt not clinically safe for d/c that day. - H&P currently makes need for 09/21 MN clear but not 09/22 MN clear. Feel free to use points below w/which you agree 3. "Possible bronchial pneumonia, suspect gram-negative given severe COPD" - vs. "Acute bronchitis" ? 4. "Acute hyponatremia, suspect due to " 5. "____ Afib" - paroxysmal or persistent? 6. "underweight with protein-calorie malnutrition, mod-severe, with BMI 14.9, BUN 10, Cr 0.46, ____[?wt loss, ?appetite loss, ]" [if possible, give specifics on intake, wt loss, loss of SQ fat & muscle mass, diminished hand lime kiln and recausticizing operator strength, & clinical importance such as (A) nutritional assessment ordered, (B) modified diet or supplements ordered, (C) additional labs ordered, (D) prolonged wound healing time, (E) delayed infxn clearance] 7. "SIRS, POA, due to infxn - but I do not believe pt had sepsis" 8. "thrush" ? Discussion: 70yo w/COPD - severe bullous emphysema w/scarring per CXR report - & chronic hypoxemic & hypercarbic resp failure, chronic diastolic CHF, chronic anemia felt to be due to Fe defic (?nutritional?), ___ Afib, HTN, ?hypotension, pulmonary nodules and abnormal LFTs without clear etiology yet found, bilat mastectomy due to , hyst presented w/SOB, tachycardia, tachypnea, reported hypoxemia (per ED dr), "mod distress, (+)retractions, wheezing, decreased air movement, continues to wheeze despite Bipap & nebs, Solumedrol, Mag IV [& Levaquin IV]". - This was after pt already had had improvement in initial work of breathing after Solumedrol/neb via EMS per ED nursing report. HR 105, RR30, WBC 18.9, BP 145/83, sat 98% on 4L O2, VBG w/pH 7.30, pCO2 75.8, bicarb 36.3, Na 131, glc 225. Initial attending ordered prn nebs, Advair, IV LEvaquin, IV Solumedrol 125 q6h, Daliresp, Spiriva, Singulair. Next day, 09/22, pt's usual attending did H&P, stating pt much improved, "NAD", thin, CTABilat, "RRR", with HR 93, RR22. He consulted pulmonology, ordered CT chest, continued IV abx, adjusted dose of Solumedrol from tremendous dose to high dose. He noted plan for sputum cx, & ordered another ABG. H&P does not make explicit why this "much improved", "NAD & CTAB" pt couldn't yet go home. However, pt has has severe underlying co-morbidities, had persistent tachypnea 20s-30s until late pm 09/21, and persistent tachycardia as high as 115 ever since arrival, so pt's vitals have not been stable. Pt has pulmonary nodules and elevated LFTs, which would lead a reasonable attg to be concerned for possible underlying lung CA, which could further compromise lung function acutely, and he has ordered CT to re-evaluate these. He is also concerned enough about pt that he feels need to consult risk analyst even though pt is clinically better than the day before. Apparently, pt is still not back to baseline Appropriate for Inpt status, though needs more explicit documentation of attending's appropriate thinking/concerns to support status. CK
[2016-09-22 12:53] LABS: ARTERIAL BLOOD BASE EXCESS 9.7 mmol/L; ARTERIAL BLOOD O2 SATURATION 96.6 % (94-98)
--- NOTE | 2016-09-22 14:51 | RADIOLOGY REPORT (SQ) ---
EXAM DESCRIPTION: CT CHEST WITHOUT COMPLETED DATE/TIME: 09/22/2016 2:32 pm REASON FOR STUDY: copd/pulmonry nodule COMPARISON: CT chest 07/23/2016, 04/14/2016, 01/02/2016, 10/02/2015, 02/10/2014, 03/10/2007 TECHNIQUE: CT scan performed of the chest without intravenous contrast. Images reviewed with lung, soft tissue and bone windows. Reconstructed coronal and sagittal MPR images reviewed. All images st ored on PACS. All CT scanners at this facility use dose modulation, iterative reconstruction, and/or weight based d osing when appropriate to reduce radiation dose to as low as reasonably achievable (ALARA). [facility]: Dose Right [facility]: CareDose [facility]: Dose Right [facility]: Teradose 4D [facility]: [employer] RADIATION DOSE: Up-to-date CT equipment and radiation dose reduction techniques were employed. CTDIv ol: 2.8 mGy. DLP: 103 mGy-cm. mGy. LIMITATIONS: No technical limitations. FINDINGS: LUNGS AND PLEURA: End-stage appearance of obstructive lung disease with upper lobe predomi nant pleural-parenchymal scarring. There are thin-walled cavities in the right and left posterior up per lobes unchanged. In the superior segment left lower lobe, a thick walled cavity measuring 2.4 x 1.8 cm in size is pres ent, smaller than on 07/23/2016 when it measures 3.6 x 2.6 cm in size and appeared filled with fluid. On scans previous to 07/23/2016, this lesion was cavitary and similar in size to the current study. No pleural effusions. No pneumothorax. HILAR AND MEDIASTINAL STRUCTURES: No identified masses or abnormal nodes. No obvious aneurysm. HEART AND VASCULAR STRUCTURES: No aneurysm. No pericardial effusion. UPPER ABDOMEN: No significant findings. Limited exam. THYROID AND OTHER SOFT TISSUES: No masses. No adenopathy. Peripherally calcified breast implants ar e present. BONES: No significant finding. HARDWARE: None in the chest. OTHER: No other significant findings. IMPRESSION: End-stage appearance of obstructive lung disease with thin-walled cavities in the bilate ral upper lobes. Cavitary lesion in the superior segment left lower lobe is similar compared to studies pre dating 06/29. TECHNICAL DOCUMENTATION: JOB ID: [id number] Quality ID # [id number]: Final reports with documentation of one or more dose reduction techniques (e.g., Au tomated exposure control, adjustment of the mA and/or kV according to patient size, use of iterative reconstruction technique) 2010 [employer]- All Rights Reserved
[2016-09-22] MEDS: MONTELUKAST SODIUM 10 MG TABLET PO SCH (21:41)
[2016-09-23] MEDS: NYSTATIN/DEXAMETH/DIPHEN SUSP 120 ML PO SCH ×5 (00:31→23:25)
[2016-09-23] MEDS: METHYLPREDNISOLONE INJ 125 MG/2 ML SDV IV SCH ×2 (00:32→05:25)
[2016-09-23 05:04] LABS: HEMATOCRIT 29.6 % (36.0-47.0); HEMOGLOBIN 9.5 g/dL (12.0-15.5); HGB HCT DIFFERENCE -1.1; MEAN CORPUSCULAR HEMOGLOBIN 25.8 pg (27.0-33.4); MEAN CORPUSCULAR VOLUME 81 fl (80-97); RED BLOOD COUNT 3.68 10^6/uL (3.72-5.28); RED CELL DISTRIBUTION WIDTH 12.8 % (11.5-14.0); WHITE BLOOD COUNT 15.9 10^3/uL (4.0-10.5)
[2016-09-23 05:15] LABS: ANION GAP 8 (5-19); BLOOD UREA NITROGEN 21 mg/dL (7-20); CALCIUM 10.3 mg/dL (8.4-10.2); CARBON DIOXIDE 39 mmol/L (22-30); CHLORIDE 86 mmol/L (98-107); CREATININE RESULT 0.57 mg/dL (0.52-1.25); GLUCOSE 204 mg/dL (75-110); POTASSIUM 5.2 mmol/L (3.6-5.0); SODIUM 132.6 mmol/L (137-145)
[2016-09-23] MEDS: DILTIAZEM HCL 60 MG TABLET PO SCH ×3 (05:25→21:32)
[2016-09-23 05:42] LABS: BASOPHILS % (MANUAL) 0 % (0-2); EOSINOPHILS % (MANUAL) 0 % (0-6); LYMPHOCYTES % (MANUAL) 4 % (13-45); TOTAL CELLS COUNTED 100
[2016-09-23 05:43] LABS: RBC MORPHOLOGY COMMENT NORMO-CYTIC/CHROMIC; TOXIC GRANULATION SLIGHT; TOXIC VACUOLATION PRESENT
[2016-09-23] MEDS: IPRATROPIUM/ALBUTEROL 0.5-2.5 MG/3 ML AMPUL NEB PRN ×3 (06:13→19:47)
[2016-09-23] MEDS: [UNRECOGNIZED DRUG - OTHER] PO SCH (07:26)
[2016-09-23] MEDS: LEVOFLOXACIN 750 MG/D5W RTU 750 MG/150 ML RTUPB IV SCH (09:24)
[2016-09-23] MEDS: MULTIVITAMIN TABLET PO SCH (09:24)
[2016-09-23] MEDS: ROFLUMILAST 500 MCG TABLET PO SCH (09:24)
[2016-09-23] MEDS: CETIRIZINE 10 MG TABLET PO SCH (09:24)
[2016-09-23] MEDS: FLUTICASONE/SALMETEROL DISKUS 500-50 MCG/DOSE IH SCH ×2 (09:24→21:30)
[2016-09-23] MEDS: LISINOPRIL 10 MG TABLET PO SCH (09:24)
[2016-09-23] MEDS: FAMOTIDINE 20 MG TABLET PO SCH ×2 (09:24→21:32)
[2016-09-23] MEDS: TIOTROPIUM BROMIDE DPI 5 CAP/KIT (18 MCG/CAP) IH SCH (09:25)
--- NOTE | 2016-09-23 09:58 | PDOC PROGRESS REPORT ---
Subjective Progress Note for:: 09/23/16 Subjective:: Patient is currently doing fair much better compared to yesterday. Denied any chest pain denied any shortness of breath. Patient's's was not to hesitate to see her doctor Curseen yesterday and insists that Dr. rich, and see it but Dr. rich is not data warehouse consultant Physical Exam Vital Signs: Temp Pulse Resp BP Pulse Ox 98.2 F 95 22 H 104/60 100 09/23/16 07:25 09/23/16 07:25 09/23/16 07:25 09/23/16 07:25 09/23/16 07:25 Intake & Output 09/22/16 09/23/16 09/24/16 06:59 06:59 06:59 Intake Total 1615 2460 Balance 1615 2460 Weight 33.4 kg 34.6 kg General appearance: PRESENT: no acute distress, well-developed, well-nourished Head exam: PRESENT: atraumatic, normocephalic Eye exam: PRESENT: conjunctiva pink, EOMI, PERRLA. ABSENT: scleral icterus Ear exam: PRESENT: normal external ear exam Mouth exam: PRESENT: moist, tongue midline Neck exam: PRESENT: full ROM. ABSENT: carotid bruit, JVD, lymphadenopathy, thyromegaly Respiratory exam: PRESENT: clear to auscultation valerie Cardiovascular exam: PRESENT: RRR. ABSENT: diastolic murmur, rubs, systolic murmur Pulses: PRESENT: normal dorsalis pedis pul, +2 pedal pulses bilateral Vascular exam: PRESENT: normal capillary refill GI/Abdominal exam: PRESENT: normal bowel sounds, soft. ABSENT: distended, guarding, mass, organolmegaly, rebound, tenderness Rectal exam: PRESENT: deferred Neurological exam: PRESENT: alert, awake, oriented to person, oriented to place , oriented to time, oriented to situation, CN II-XII grossly intact. ABSENT: motor sensory deficit Psychiatric exam: PRESENT: appropriate affect, normal mood. ABSENT: homicidal ideation, suicidal ideation Skin exam: PRESENT: dry, intact, warm. ABSENT: cyanosis, rash Results Laboratory Results: 09/23/16 04:15 09/23/16 04:15 09/22/16 09/23/16 09/23/16 12:37 04:15 04:15 WBC 15.9 H RBC 3.68 L Hgb 9.5 L Hct 29.6 L MCV 81 MCH 25.8 L MCHC 32.0 RDW 12.8 Plt Count 398 Seg Neutrophils % Not Reportable Lymphocytes % Not Reportable Monocytes % Not Reportable Eosinophils % Not Reportable Basophils % Not Reportable Absolute Neutrophils Not Reportable Absolute Lymphocytes Not Reportable Absolute Monocytes Not Reportable Absolute Eosinophils Not Reportable Absolute Basophils Not Reportable Carbonic Acid 1.67 H HCO3/H2CO3 Ratio 21:1 ABG pH 7.43 ABG pCO2 55.6 H ABG pO2 86.7 ABG HCO3 35.7 H ABG O2 Saturation 96.6 ABG Base Excess 9.7 FiO2 3.5L Sodium 132.6 L Potassium 5.2 H Chloride 86 L Carbon Dioxide 39 H Anion Gap 8 BUN 21 H Creatinine 0.57 Est GFR ( Amer) > 60 Est GFR (Non-Af Amer) > 60 Glucose 204 H Calcium 10.3 H 09/23/16 04:15 NT-Pro-B Natriuret Pep 527 Impressions: Chest X-Ray 09/21/16 11:41 IMPRESSION: Severe chronic changes with COPD and scarring. No acute process. Chest CT 09/22/16 00:00 IMPRESSION: End-stage appearance of obstructive lung disease with thin-walled cavities in the bilateral upper lobes. Cavitary lesion in the superior segment left lower lobe is similar compared to studies pre dating 07/23/2016. Assessment & Plan - Diagnosis (1) COPD exacerbation Is this a current diagnosis for this admission?: YesPlan: Start the patient on IV Solu-Medrol and consult the pulmonary continues to monitor the patient (2) Respiratory distress Is this a current diagnosis for this admission?: YesPlan: Currently stable will get the ABG (3) Bronchial pneumonia Is this a current diagnosis for this admission?: YesPlan: Continues to IV antibiotic (4) Hypertension Qualifiers: Hypertension type: essential hypertension Qualified Code(s): I10 - Essential (primary) hypertension Is this a current diagnosis for this admission?: YesPlan: Currently all stable (5) Osteoarthritis Qualifiers: Osteoarthritis location: unspecified site Is this a current diagnosis for this admission?: YesPlan: Stable (6) Congestive heart failure Qualifiers: Congestive heart failure type: diastolic Congestive heart failure chronicity: chronic Qualified Code(s): I50.32 - Chronic diastolic ( congestive) heart failure Is this a current diagnosis for this admission?: YesPlan: Currently stable with current medications (7) Pulmonary nodule Is this a current diagnosis for this admission?: YesPlan: The CT scan from March nothing change - Time Time Spent with patient: 15-24 minutes Medications reviewed and adjusted accordingly: Yes Anticipated discharge: Home Within: Other - Inpatient Certification Medical Necessity: Need Close Monitoring Due to Risk of Patient Decompensation 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
[2016-09-23] MEDS ORDERED: METHYLPREDNISOLONE INJ 125 MG/2 ML SDV IV SCH (14:00)
[2016-09-23] MEDS: METHYLPREDNISOLONE INJ 40 MG/1 ML SDV IV SCH ×2 (14:31→21:32)
--- NOTE | 2016-09-23 17:51 | PDOC CONSULTATION ---
Consultation Consult Date: 09/22/16 Attending physician:: TRUDY MERCER Consult reason:: acute/chronic resp failure History of Present Illness Admission Date/PCP: 09/21/16 14:00 TRUDY MERCER MD History of Present Illness: MANUEL ARGUETA is a 70 year old female This 70-year-old female with a Significant history of the COPD with advanced emphysema and a 3-4 L oxygen at home Patients came to the emergency department with increasing the shortness of the breath with increasing more cough and patient's white count was elevated and the patient was started on IV steroid and IV antibiotic and admitting in the hospital Patient is currently doing much better patient's wheezing is all resolved and patient's white count is also better to Patients have a CT of the chest was done by her pulmonary in March 2016 for some nodules and presence currently follow with him Patient also have abnormal liver enzyme and all workup done in the past and was stable Past Medical History Cardiac Medical History: Reports: Atrial Fibrillation, Congestive Heart Failure , Hypertension - HYPO Denies: Myocardial Infarction - CHF Pulmonary Medical History: Reports: Asthma, Chronic Obstructive Pulmonary Disease (COPD) Neurological Medical History: Denies: Seizures GI Medical History: Denies: Hepatitis, Hiatal Hernia Psychiatric Medical History: Denies: Depression Hematology: Reports: Anemia - IRON INFUSION 4 MO AGO Denies: Sickle Cell Disease Past Surgical History Past Surgical History: Reports: Hysterectomy, Mastectomy - BILAT, Orthopedic Surgery - repair of pinched nerve, Tonsillectomy Denies: Amputation, Pacemaker Social History Information Source: Patient, [facility] Records Smoking Status: Former Smoker Last Time Smoked: 2009 Passive smoke exposure as: Both Frequency of Alcohol Use: None Hx Recreational Drug Use: No Drugs: None Hx Prescription Drug Abuse: No Do you have pets?: No Have you had any respiratory illnesses as a child?: Yes Have you been exposed to any sick contacts recently?: No Have you had any recent respiratory illnesses?: Yes Have you travelled outside of [place] in the past 12 months?: No Family History Family History: COPD, Hypertension Parental Family History Reviewed: No Children Family History Reviewed: No Sibling(s) Family History Reviewed.: No Medication/Allergy Home Medications: Albuterol Sulfate [Proair HFA Inhalation Aerosol 8.5 gm MDI] 1 puff IH Q4HP PRN 09/21/16 Cetirizine HCl [Zyrtec 10 mg Tablet] 10 mg PO DAILY 09/21/16 Diltiazem HCl [Cardizem 60 mg Tablet] 60 mg PO Q8 09/21/16 Famotidine [Pepcid 20 mg Tablet] 20 mg PO BID 09/21/16 Fluticasone/Salmeterol [Advair 500-50 Diskus 14 Dose/Diskus] 1 puff IH Q12 09/21 Ipratropium/Albuterol Sulfate [Iprat-Albut 0.5-3(2.5) mg/3 ml] 3 ml IH Q6HP PRN 09/21/16 Lisinopril [Prinivil] 20 mg PO DAILY 09/21/16 Montelukast Sodium [Singulair 10 mg Tablet] 10 mg PO QPM 09/21/16 Multivitamin [Tab-A-Jared] 1 tab PO DAILY 09/21/16 Roflumilast [Daliresp 500 mcg Tablet] 500 mg PO DAILY 09/21/16 Tiotropium Saline [Spiriva Handihaler 5 Cap/Kit (18 Mcg/Cap)] 1 puff IH DAILY 09/21/16 Allergies/Adverse Reactions: ezetimibe [From Zetia] Adverse Reaction (Intermediate, Verified 09/27/15 10:03) feeling of something crawling under skin sertraline HCl [From Zoloft] Adverse Reaction (Intermediate, Verified 09/27/15 10:03) Skin Redness Physical Exam Vital Signs: Temp Pulse Resp BP Pulse Ox 97.3 F 122 H 24 H 125/69 96 09/23/16 12:24 09/23/16 13:43 09/23/16 13:43 09/23/16 12:24 09/23/16 13:43 Intake & Output 09/22/16 09/23/16 09/24/16 06:59 06:59 06:59 Intake Total 1615 2460 695 Balance 1615 2460 695 Weight 33.4 kg 34.6 kg General appearance: PRESENT: no acute distress, cooperative, disheveled, thin, well-developed Head exam: PRESENT: atraumatic, normocephalic Eye exam: PRESENT: conjunctiva pale, EOMI Mouth exam: PRESENT: dry mucosa, neck supple Neck exam: ABSENT: carotid bruit, JVD, lymphadenopathy, thyromegaly Respiratory exam: PRESENT: decreased breath sounds, prolonged expiratory phas, rhonchi, wheezes Cardiovascular exam: PRESENT: RRR, +S1, +S2 Pulses: PRESENT: normal radial pulses GI/Abdominal exam: PRESENT: normal bowel sounds, soft. ABSENT: distended, guarding, mass, organolmegaly, rebound, tenderness Rectal exam: PRESENT: deferred Gentrourinary exam: PRESENT: indwelling catheter Musculoskeletal exam: PRESENT: normal inspection Neurological exam: PRESENT: alert, awake Psychiatric exam: PRESENT: normal mood Skin exam: PRESENT: dry, warm Results Laboratory Results: 09/23/16 04:15 09/23/16 04:15 09/23/16 09/23/16 04:15 04:15 WBC 15.9 H RBC 3.68 L Hgb 9.5 L Hct 29.6 L MCV 81 MCH 25.8 L MCHC 32.0 RDW 12.8 Plt Count 398 Seg Neutrophils % Not Reportable Lymphocytes % Not Reportable Monocytes % Not Reportable Eosinophils % Not Reportable Basophils % Not Reportable Absolute Neutrophils Not Reportable Absolute Lymphocytes Not Reportable Absolute Monocytes Not Reportable Absolute Eosinophils Not Reportable Absolute Basophils Not Reportable Sodium 132.6 L Potassium 5.2 H Chloride 86 L Carbon Dioxide 39 H Anion Gap 8 BUN 21 H Creatinine 0.57 Est GFR ( Amer) > 60 Est GFR (Non-Af Amer) > 60 Glucose 204 H Calcium 10.3 H 09/23/16 04:15 NT-Pro-B Natriuret Pep 527 Impressions: Chest X-Ray 09/21/16 11:41 IMPRESSION: Severe chronic changes with COPD and scarring. No acute process. Chest CT 09/22/16 00:00 IMPRESSION: End-stage appearance of obstructive lung disease with thin-walled cavities in the bilateral upper lobes. Cavitary lesion in the superior segment left lower lobe is similar compared to studies pre dating 07/23/2016. Assessment & Plan - Diagnosis (1) Respiratory failure with hypoxia and hypercapnia Is this a current diagnosis for this admission?: Yes (2) Bronchial pneumonia Is this a current diagnosis for this admission?: Yes (3) Breast cancer Qualifiers: Laterality: bilateral Is this a current diagnosis for this admission?: Yes
[2016-09-23] MEDS: MONTELUKAST SODIUM 10 MG TABLET PO SCH (21:32)
[2016-09-24] MEDS: IPRATROPIUM/ALBUTEROL 0.5-2.5 MG/3 ML AMPUL NEB PRN ×2 (04:22→13:40)
[2016-09-24] MEDS: NYSTATIN/DEXAMETH/DIPHEN SUSP 120 ML PO SCH ×4 (05:27→23:13)
[2016-09-24] MEDS: DILTIAZEM HCL 60 MG TABLET PO SCH ×3 (05:30→21:08)
[2016-09-24] MEDS: METHYLPREDNISOLONE INJ 40 MG/1 ML SDV IV SCH ×2 (05:30→13:12)
[2016-09-24 05:58] LABS: HEMATOCRIT 31.4 % (36.0-47.0); HEMOGLOBIN 9.8 g/dL (12.0-15.5); MEAN CORPUSCULAR HEMOGLOBIN 25.7 pg (27.0-33.4); MEAN CORPUSCULAR HGB CONC 31.3 g/dL (32.0-36.0); MEAN CORPUSCULAR VOLUME 82 fl (80-97); RED BLOOD COUNT 3.82 10^6/uL (3.72-5.28); RED CELL DISTRIBUTION WIDTH 12.8 % (11.5-14.0); WHITE BLOOD COUNT 14.3 10^3/uL (4.0-10.5)
[2016-09-24 06:15] LABS: ANION GAP 9 (5-19); BLOOD UREA NITROGEN 24 mg/dL (7-20); CALCIUM 9.8 mg/dL (8.4-10.2); CARBON DIOXIDE 37 mmol/L (22-30); CHLORIDE 87 mmol/L (98-107); CREATININE RESULT 0.63 mg/dL (0.52-1.25); GLUCOSE 209 mg/dL (75-110); POTASSIUM 5.1 mmol/L (3.6-5.0)
[2016-09-24 06:33] LABS: BASOPHILS % (MANUAL) 0 % (0-2); EOSINOPHILS % (MANUAL) 0 % (0-6); LYMPHOCYTES % (MANUAL) 10 % (13-45); TOTAL CELLS COUNTED 100
[2016-09-24 06:36] LABS: BURR CELLS SLIGHT; SCHISTOCYTES SLIGHT; TOXIC GRANULATION 1+; TOXIC VACUOLATION PRESENT
[2016-09-24] MEDS: MULTIVITAMIN TABLET PO SCH (09:14)
[2016-09-24] MEDS: FLUTICASONE/SALMETEROL DISKUS 500-50 MCG/DOSE IH SCH ×2 (09:14→21:10)
[2016-09-24] MEDS: TIOTROPIUM BROMIDE DPI 5 CAP/KIT (18 MCG/CAP) IH SCH (09:14)
[2016-09-24] MEDS: CETIRIZINE 10 MG TABLET PO SCH (09:14)
[2016-09-24] MEDS: ROFLUMILAST 500 MCG TABLET PO SCH (09:14)
[2016-09-24] MEDS: FAMOTIDINE 20 MG TABLET PO SCH ×2 (09:14→21:08)
[2016-09-24] MEDS: LISINOPRIL 10 MG TABLET PO SCH (09:14)
[2016-09-24] MEDS: [UNRECOGNIZED DRUG - OTHER] PO SCH (09:15)
--- NOTE | 2016-09-24 10:17 | PDOC PROGRESS REPORT ---
Subjective Progress Note for:: 09/24/16 Subjective:: Patient is feeling better. Patient's denied any chest pain denied any cough and no fever. Still little bit short of breath when she walked around but still able to walk yesterday Physical Exam Vital Signs: Temp Pulse Resp BP Pulse Ox 98.4 F 96 20 125/67 97 09/24/16 07:16 09/24/16 07:16 09/24/16 07:16 09/24/16 07:16 09/24/16 07:16 Intake & Output 09/23/16 09/24/16 09/25/16 06:59 06:59 06:59 Intake Total 2460 2209 Balance 2460 2209 Weight 34.6 kg 34.6 kg General appearance: PRESENT: no acute distress Head exam: PRESENT: atraumatic, normocephalic Eye exam: PRESENT: conjunctiva pink, EOMI, PERRLA. ABSENT: scleral icterus Ear exam: PRESENT: normal external ear exam Mouth exam: PRESENT: moist, tongue midline Neck exam: PRESENT: full ROM. ABSENT: carotid bruit, JVD, lymphadenopathy, thyromegaly Respiratory exam: PRESENT: clear to auscultation valerie Cardiovascular exam: PRESENT: RRR. ABSENT: diastolic murmur, rubs, systolic murmur Pulses: PRESENT: normal dorsalis pedis pul, +2 pedal pulses bilateral Vascular exam: PRESENT: normal capillary refill GI/Abdominal exam: PRESENT: normal bowel sounds, soft. ABSENT: distended, guarding, mass, organolmegaly, rebound, tenderness Rectal exam: PRESENT: deferred Neurological exam: PRESENT: alert, awake, oriented to person, oriented to place , oriented to time, oriented to situation, CN II-XII grossly intact. ABSENT: motor sensory deficit Psychiatric exam: PRESENT: appropriate affect, normal mood. ABSENT: homicidal ideation, suicidal ideation Skin exam: PRESENT: dry, intact, warm. ABSENT: cyanosis, rash Results Laboratory Results: 09/24/16 05:11 09/24/16 05:11 09/24/16 09/24/16 05:11 05:11 WBC 14.3 H RBC 3.82 Hgb 9.8 L Hct 31.4 L MCV 82 MCH 25.7 L MCHC 31.3 L RDW 12.8 Plt Count 390 Seg Neutrophils % Not Reportable Lymphocytes % Not Reportable Monocytes % Not Reportable Eosinophils % Not Reportable Basophils % Not Reportable Absolute Neutrophils Not Reportable Absolute Lymphocytes Not Reportable Absolute Monocytes Not Reportable Absolute Eosinophils Not Reportable Absolute Basophils Not Reportable Sodium 133.0 L Potassium 5.1 H Chloride 87 L Carbon Dioxide 37 H Anion Gap 9 BUN 24 H Creatinine 0.63 Est GFR ( Amer) > 60 Est GFR (Non-Af Amer) > 60 Glucose 209 H Calcium 9.8 09/23/16 04:15 NT-Pro-B Natriuret Pep 527 Impressions: Chest X-Ray 09/21/16 11:41 IMPRESSION: Severe chronic changes with COPD and scarring. No acute process. Chest CT 09/22/16 00:00 IMPRESSION: End-stage appearance of obstructive lung disease with thin-walled cavities in the bilateral upper lobes. Cavitary lesion in the superior segment left lower lobe is similar compared to studies pre dating 07/23/2016. Assessment & Plan - Diagnosis (1) COPD exacerbation Is this a current diagnosis for this admission?: YesPlan: Start the patient on a p.o. steroid (2) Respiratory distress Is this a current diagnosis for this admission?: YesPlan: Currently all stable (3) Bronchial pneumonia Is this a current diagnosis for this admission?: YesPlan: Repeat the chest x-ray (4) Hypertension Qualifiers: Hypertension type: essential hypertension Qualified Code(s): I10 - Essential (primary) hypertension Is this a current diagnosis for this admission?: YesPlan: Currently all stable (5) Osteoarthritis Qualifiers: Osteoarthritis location: unspecified site Is this a current diagnosis for this admission?: YesPlan: Stable (6) Congestive heart failure Qualifiers: Congestive heart failure type: diastolic Congestive heart failure chronicity: chronic Qualified Code(s): I50.32 - Chronic diastolic ( congestive) heart failure Is this a current diagnosis for this admission?: YesPlan: Currently stable with current medications (7) Pulmonary nodule Is this a current diagnosis for this admission?: Yes - Time Time Spent with patient: 15-24 minutes Medications reviewed and adjusted accordingly: Yes Anticipated discharge: Home Within: Other - Inpatient Certification Medical Necessity: Need Close Monitoring Due to Risk of Patient Decompensation, Need for IV Antibiotics 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
--- NOTE | 2016-09-24 10:54 | PDOC PROGRESS REPORT ---
Subjective Progress Note for:: 09/24/16 Subjective:: Feeling better increased exercise tolerance Physical Exam Vital Signs: Temp Pulse Resp BP Pulse Ox 98.4 F 96 20 125/67 97 09/24/16 07:16 09/24/16 07:16 09/24/16 07:16 09/24/16 07:16 09/24/16 07:16 Intake & Output 09/23/16 09/24/16 09/25/16 06:59 06:59 06:59 Intake Total 2460 2209 Balance 2460 2209 Weight 34.6 kg 34.6 kg General appearance: PRESENT: no acute distress, cooperative, disheveled, thin, well-developed Head exam: PRESENT: atraumatic, normocephalic Eye exam: PRESENT: conjunctiva pale, EOMI Mouth exam: PRESENT: neck supple, tongue midline Neck exam: ABSENT: carotid bruit, JVD, lymphadenopathy, thyromegaly Respiratory exam: PRESENT: decreased breath sounds, prolonged expiratory phas, rhonchi - Primarily at the right base, unlabored Cardiovascular exam: PRESENT: RRR, +S1, +S2 Pulses: PRESENT: normal radial pulses GI/Abdominal exam: PRESENT: normal bowel sounds, soft. ABSENT: distended, guarding, mass, organolmegaly, rebound, tenderness Rectal exam: PRESENT: deferred Musculoskeletal exam: PRESENT: normal inspection Neurological exam: PRESENT: alert, awake Psychiatric exam: PRESENT: normal mood Skin exam: PRESENT: dry, warm Results Laboratory Results: 09/24/16 05:11 09/24/16 05:11 09/24/16 09/24/16 05:11 05:11 WBC 14.3 H RBC 3.82 Hgb 9.8 L Hct 31.4 L MCV 82 MCH 25.7 L MCHC 31.3 L RDW 12.8 Plt Count 390 Seg Neutrophils % Not Reportable Lymphocytes % Not Reportable Monocytes % Not Reportable Eosinophils % Not Reportable Basophils % Not Reportable Absolute Neutrophils Not Reportable Absolute Lymphocytes Not Reportable Absolute Monocytes Not Reportable Absolute Eosinophils Not Reportable Absolute Basophils Not Reportable Sodium 133.0 L Potassium 5.1 H Chloride 87 L Carbon Dioxide 37 H Anion Gap 9 BUN 24 H Creatinine 0.63 Est GFR ( Amer) > 60 Est GFR (Non-Af Amer) > 60 Glucose 209 H Calcium 9.8 09/23/16 04:15 NT-Pro-B Natriuret Pep 527 Impressions: Chest X-Ray 09/21/16 11:41 IMPRESSION: Severe chronic changes with COPD and scarring. No acute process. Chest CT 09/22/16 00:00 IMPRESSION: End-stage appearance of obstructive lung disease with thin-walled cavities in the bilateral upper lobes. Cavitary lesion in the superior segment left lower lobe is similar compared to studies pre dating 07/23/2016. Assessment & Plan - Diagnosis (1) Respiratory failure with hypoxia and hypercapnia Is this a current diagnosis for this admission?: YesPlan: Patient is rapidly approaching baseline (2) Bronchial pneumonia Is this a current diagnosis for this admission?: YesPlan: Significantly improved (3) Breast cancer Qualifiers: Laterality: bilateral Is this a current diagnosis for this admission?: Yes
--- NOTE | 2016-09-24 11:17 | RADIOLOGY REPORT (SQ) ---
EXAM DESCRIPTION: CHEST PA/LAT COMPLETED DATE/TIME: 09/24/2016 11:06 am REASON FOR STUDY: copd COMPARISON: CT CHEST 04/14/2016, 09/22/2016 CHEST FILMS 05/23/2011, 01/11/2014, 12/31/2014, 04/28/2016 EXAM PARAMETERS: NUMBER OF VIEWS: two views TECHNIQUE: Digital Frontal and Lateral radiographic views of the chest acquired. RADIATION DOSE: NA LIMITATIONS: none FINDINGS: LUNGS AND PLEURA: Lungs are hyperinflated with flattening of the hemidiaphragms. Reticula r interstitial markings throughout both lungs upper lobe predominant. Bilateral upper lobe pleuropar enchymal scarring and volume loss with bronchiectasis, similar compared to films dating back to 2013. No focal areas of consolidation. No pleural effusion. No pneumothorax. mediastinum and hilar structures: no masses or contour abnormalities. HEART AND VASCULAR STRUCTURES: Heart normal size. No evidence for failure. BONES: Osteoporotic. No gross acute changes HARDWARE: Peripherally calcified breast implants bilaterally OTHER: No other significant finding. IMPRESSION: Stable increased interstitial markings, hyperinflation and bilateral upper lobe bronchie ctasis, volume loss, and consolidation. No new findings TECHNICAL DOCUMENTATION: JOB ID: [id number] [employer]- All Rights Reserved
[2016-09-24] MEDS: PREDNISONE 20 MG TABLET PO SCH (17:44)
[2016-09-24] MEDS: MONTELUKAST SODIUM 10 MG TABLET PO SCH (21:08)
[2016-09-25] MEDS: DILTIAZEM HCL 60 MG TABLET PO SCH ×3 (05:07→21:09)
[2016-09-25] MEDS: NYSTATIN/DEXAMETH/DIPHEN SUSP 120 ML PO SCH ×4 (05:08→23:31)
[2016-09-25 06:46] LABS: ABSOLUTE LYMPHOCYTES (AUTO) 1.1 10^3/uL (0.5-4.7); ABSOLUTE NEUT (AUTO) 15.9 10^3/uL (1.7-8.2); HEMATOCRIT 32.7 % (36.0-47.0); HEMOGLOBIN 10.4 g/dL (12.0-15.5); HGB HCT DIFFERENCE -1.5; LYMPHOCYTES % (AUTO) 5.9 % (13-45); MEAN CORPUSCULAR HEMOGLOBIN 25.5 pg (27.0-33.4); MEAN CORPUSCULAR HGB CONC 31.6 g/dL (32.0-36.0); MEAN CORPUSCULAR VOLUME 81 fl (80-97); MONOCYTES % (AUTO) 5.6 % (3-13); RED BLOOD COUNT 4.07 10^6/uL (3.72-5.28); RED CELL DISTRIBUTION WIDTH 13.2 % (11.5-14.0); SEGMENTED NEUTROPHILS % (AUTO) 88.5 % (42-78)
[2016-09-25 07:01] LABS: BLOOD UREA NITROGEN 22 mg/dL (7-20); CALCIUM 10.2 mg/dL (8.4-10.2); CHLORIDE 85 mmol/L (98-107); CREATININE RESULT 0.61 mg/dL (0.52-1.25); GLUCOSE 153 mg/dL (75-110); POTASSIUM 4.6 mmol/L (3.6-5.0); SODIUM 133.5 mmol/L (137-145)
[2016-09-25 07:13] LABS: ANION GAP 10 (5-19)
[2016-09-25 07:21] LABS: CARBON DIOXIDE 39 mmol/L (22-30)
[2016-09-25] MEDS: IPRATROPIUM/ALBUTEROL 0.5-2.5 MG/3 ML AMPUL NEB PRN ×2 (08:12→20:15)
--- NOTE | 2016-09-25 09:09 | PDOC PROGRESS REPORT ---
Subjective Progress Note for:: 09/25/16 Subjective:: Patient is currently doing fair. Patient's denied any chest pain denied any shortness of the breath still requiring oxygen's 2 or 3 L at the baseline at home. Patient still white count is elevated Physical Exam Vital Signs: Temp Pulse Resp BP Pulse Ox 98.0 F 109 H 20 142/68 H 97 09/25/16 07:12 09/25/16 08:14 09/25/16 08:14 09/25/16 07:12 09/25/16 08:14 Intake & Output 09/24/16 09/25/16 09/26/16 06:59 06:59 06:59 Intake Total 2209 2553 Balance 2209 2553 Weight 34.6 kg 31.3 kg General appearance: PRESENT: no acute distress, well-developed, well-nourished Head exam: PRESENT: atraumatic, normocephalic Eye exam: PRESENT: conjunctiva pink, EOMI, PERRLA. ABSENT: scleral icterus Ear exam: PRESENT: normal external ear exam Mouth exam: PRESENT: moist, tongue midline Neck exam: PRESENT: full ROM. ABSENT: carotid bruit, JVD, lymphadenopathy, thyromegaly Respiratory exam: PRESENT: clear to auscultation valerie Cardiovascular exam: PRESENT: RRR. ABSENT: diastolic murmur, rubs, systolic murmur Pulses: PRESENT: normal dorsalis pedis pul, +2 pedal pulses bilateral Vascular exam: PRESENT: normal capillary refill GI/Abdominal exam: PRESENT: normal bowel sounds, soft. ABSENT: distended, guarding, mass, organolmegaly, rebound, tenderness Rectal exam: PRESENT: deferred Neurological exam: PRESENT: alert, awake, oriented to person, oriented to place , oriented to time, oriented to situation, CN II-XII grossly intact. ABSENT: motor sensory deficit Psychiatric exam: PRESENT: appropriate affect, normal mood. ABSENT: homicidal ideation, suicidal ideation Skin exam: PRESENT: dry, intact, warm. ABSENT: cyanosis, rash Results Laboratory Results: 09/25/16 06:32 09/25/16 06:32 09/25/16 09/25/16 06:32 06:32 WBC 18.0 H RBC 4.07 Hgb 10.4 L Hct 32.7 L MCV 81 MCH 25.5 L MCHC 31.6 L RDW 13.2 Plt Count 448 Seg Neutrophils % 88.5 H Lymphocytes % 5.9 L Monocytes % 5.6 Eosinophils % 0.0 Basophils % 0.0 Absolute Neutrophils 15.9 H Absolute Lymphocytes 1.1 Absolute Monocytes 1.0 Absolute Eosinophils 0.0 Absolute Basophils 0.0 Sodium 133.5 L Potassium 4.6 Chloride 85 L Carbon Dioxide 39 H Anion Gap 10 BUN 22 H Creatinine 0.61 Est GFR ( Amer) > 60 Est GFR (Non-Af Amer) > 60 Glucose 153 H Calcium 10.2 09/23/16 04:15 NT-Pro-B Natriuret Pep 527 Impressions: Chest CT 09/22/16 00:00 IMPRESSION: End-stage appearance of obstructive lung disease with thin-walled cavities in the bilateral upper lobes. Cavitary lesion in the superior segment left lower lobe is similar compared to studies pre dating 07/23/2016. Chest X-Ray 09/24/16 00:00 IMPRESSION: Stable increased interstitial markings, hyperinflation and bilateral upper lobe bronchiectasis, volume loss, and consolidation. No new findings Assessment & Plan - Diagnosis (1) COPD exacerbation Is this a current diagnosis for this admission?: YesPlan: Start the patient on a p.o. steroid (2) Respiratory distress Is this a current diagnosis for this admission?: YesPlan: Currently all stable (3) Bronchial pneumonia Is this a current diagnosis for this admission?: YesPlan: Repeat the chest x-ray (4) Hypertension Qualifiers: Hypertension type: essential hypertension Qualified Code(s): I10 - Essential (primary) hypertension Is this a current diagnosis for this admission?: YesPlan: Currently all stable (5) Osteoarthritis Qualifiers: Osteoarthritis location: unspecified site Is this a current diagnosis for this admission?: YesPlan: Stable (6) Congestive heart failure Qualifiers: Congestive heart failure type: diastolic Congestive heart failure chronicity: chronic Qualified Code(s): I50.32 - Chronic diastolic ( congestive) heart failure Is this a current diagnosis for this admission?: Yes (7) Pulmonary nodule Is this a current diagnosis for this admission?: Yes - Time Time Spent with patient: 15-24 minutes Medications reviewed and adjusted accordingly: Yes Anticipated discharge: Home Within: within 24 hours - Inpatient Certification Medical Necessity: Need Close Monitoring Due to Risk of Patient Decompensation 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
[2016-09-25] MEDS ORDERED: LEVOFLOXACIN 750 MG TABLET PO SCH (10:00)
[2016-09-25] MEDS: [UNRECOGNIZED DRUG - OTHER] PO SCH (10:22)
[2016-09-25] MEDS: DOXYCYCLINE HYCLATE 100 MG TABLET PO SCH ×2 (10:23→21:10)
[2016-09-25] MEDS: PREDNISONE 20 MG TABLET PO SCH ×2 (10:24→18:13)
[2016-09-25] MEDS: FAMOTIDINE 20 MG TABLET PO SCH (10:24)
[2016-09-25] MEDS: LISINOPRIL 10 MG TABLET PO SCH (10:24)
[2016-09-25] MEDS: CETIRIZINE 10 MG TABLET PO SCH (10:24)
[2016-09-25] MEDS: ROFLUMILAST 500 MCG TABLET PO SCH (10:25)
[2016-09-25] MEDS: FLUTICASONE/SALMETEROL DISKUS 500-50 MCG/DOSE IH SCH ×2 (10:25→21:09)
[2016-09-25] MEDS: TIOTROPIUM BROMIDE DPI 5 CAP/KIT (18 MCG/CAP) IH SCH (10:25)
[2016-09-25 12:24] LABS: ARTERIAL BLOOD O2 SATURATION 91.4 % (94-98)
[2016-09-25] MEDS: BUSPIRONE HCL 10 MG TABLET PO SCH ×2 (13:39→21:09)
--- NOTE | 2016-09-25 15:41 | PDOC PROGRESS REPORT ---
Subjective Progress Note for:: 09/25/16 Subjective:: I am going home soon Physical Exam Vital Signs: Temp Pulse Resp BP Pulse Ox 97.8 F 109 H 20 143/57 H 97 09/25/16 04:00 09/25/16 08:14 09/25/16 08:14 09/25/16 04:00 09/25/16 08:14 Intake & Output 09/24/16 09/25/16 09/26/16 06:59 06:59 06:59 Intake Total 2209 2553 Balance 2209 2553 Weight 34.6 kg 31.3 kg General appearance: PRESENT: no acute distress, cooperative, disheveled, thin, well-developed Head exam: PRESENT: atraumatic, normocephalic Eye exam: PRESENT: conjunctiva pale, EOMI Mouth exam: PRESENT: dry mucosa, neck supple, tongue midline Neck exam: ABSENT: carotid bruit, JVD, lymphadenopathy, thyromegaly Respiratory exam: PRESENT: decreased breath sounds, prolonged expiratory phas, rales, rhonchi, symmetrical, unlabored Cardiovascular exam: PRESENT: RRR, +S1, +S2 Pulses: PRESENT: normal radial pulses GI/Abdominal exam: PRESENT: normal bowel sounds, soft. ABSENT: distended, guarding, mass, organolmegaly, rebound, tenderness Rectal exam: PRESENT: deferred Musculoskeletal exam: PRESENT: normal inspection Neurological exam: PRESENT: alert, awake Psychiatric exam: PRESENT: normal mood Skin exam: PRESENT: dry, warm Results Laboratory Results: 09/25/16 06:32 09/25/16 06:32 09/25/16 09/25/16 06:32 06:32 WBC 18.0 H RBC 4.07 Hgb 10.4 L Hct 32.7 L MCV 81 MCH 25.5 L MCHC 31.6 L RDW 13.2 Plt Count 448 Seg Neutrophils % 88.5 H Lymphocytes % 5.9 L Monocytes % 5.6 Eosinophils % 0.0 Basophils % 0.0 Absolute Neutrophils 15.9 H Absolute Lymphocytes 1.1 Absolute Monocytes 1.0 Absolute Eosinophils 0.0 Absolute Basophils 0.0 Sodium 133.5 L Potassium 4.6 Chloride 85 L Carbon Dioxide 39 H Anion Gap 10 BUN 22 H Creatinine 0.61 Est GFR ( Amer) > 60 Est GFR (Non-Af Amer) > 60 Glucose 153 H Calcium 10.2 09/23/16 04:15 NT-Pro-B Natriuret Pep 527 Impressions: Chest CT 09/22/16 00:00 IMPRESSION: End-stage appearance of obstructive lung disease with thin-walled cavities in the bilateral upper lobes. Cavitary lesion in the superior segment left lower lobe is similar compared to studies pre dating 07/23/2016. Chest X-Ray 09/24/16 00:00 IMPRESSION: Stable increased interstitial markings, hyperinflation and bilateral upper lobe bronchiectasis, volume loss, and consolidation. No new findings Assessment & Plan - Diagnosis (1) Respiratory failure with hypoxia and hypercapnia Is this a current diagnosis for this admission?: YesPlan: Patient is rapidly approaching baseline (2) Bronchial pneumonia Is this a current diagnosis for this admission?: YesPlan: No cough, afebrile white count still elevated with a left shift no bandemia (3) Breast cancer Qualifiers: Laterality: bilateral Is this a current diagnosis for this admission?: Yes
[2016-09-25] MEDS: MONTELUKAST SODIUM 10 MG TABLET PO SCH (21:10)
[2016-09-26] MEDS: IPRATROPIUM/ALBUTEROL 0.5-2.5 MG/3 ML AMPUL NEB PRN ×3 (01:22→13:20)
[2016-09-26] MEDS: DILTIAZEM HCL 60 MG TABLET PO SCH ×3 (05:31→21:12)
[2016-09-26] MEDS: BUSPIRONE HCL 10 MG TABLET PO SCH ×3 (05:31→21:11)
[2016-09-26] MEDS: NYSTATIN/DEXAMETH/DIPHEN SUSP 120 ML PO SCH ×4 (05:32→23:12)
[2016-09-26 05:40] LABS: HEMATOCRIT 30.6 % (36.0-47.0); HEMOGLOBIN 9.8 g/dL (12.0-15.5); HGB HCT DIFFERENCE -1.2; MEAN CORPUSCULAR HEMOGLOBIN 25.7 pg (27.0-33.4); MEAN CORPUSCULAR HGB CONC 31.9 g/dL (32.0-36.0); MEAN CORPUSCULAR VOLUME 81 fl (80-97); RED CELL DISTRIBUTION WIDTH 12.7 % (11.5-14.0); WHITE BLOOD COUNT 22.5 10^3/uL (4.0-10.5)
[2016-09-26 05:53] LABS: ANION GAP 8 (5-19); BLOOD UREA NITROGEN 21 mg/dL (7-20); CALCIUM 9.6 mg/dL (8.4-10.2); CARBON DIOXIDE 38 mmol/L (22-30); CHLORIDE 78 mmol/L (98-107); CREATININE RESULT 0.45 mg/dL (0.52-1.25); GLUCOSE 84 mg/dL (75-110); POTASSIUM 5.1 mmol/L (3.6-5.0); SODIUM 123.7 mmol/L (137-145)
[2016-09-26 06:13] LABS: BAND NEUTROPHILS % (MANUAL) 1 % (3-5); BASOPHILS % (MANUAL) 0 % (0-2); EOSINOPHILS % (MANUAL) 0 % (0-6); LYMPHOCYTES % (MANUAL) 6 % (13-45); TOTAL CELLS COUNTED 100
[2016-09-26 06:18] LABS: HYPOCHROMASIA 1+; TOXIC GRANULATION 2+
[2016-09-26] MEDS: LISINOPRIL 10 MG TABLET PO SCH (09:07)
[2016-09-26] MEDS: FAMOTIDINE 20 MG TABLET PO SCH (09:09)
[2016-09-26] MEDS: CETIRIZINE 10 MG TABLET PO SCH (09:09)
[2016-09-26] MEDS: ROFLUMILAST 500 MCG TABLET PO SCH (09:09)
[2016-09-26] MEDS: PREDNISONE 10 MG TABLET PO SCH (09:09)
[2016-09-26] MEDS: FLUTICASONE/SALMETEROL DISKUS 500-50 MCG/DOSE IH SCH ×2 (09:10→21:11)
[2016-09-26] MEDS: [UNRECOGNIZED DRUG - OTHER] PO SCH (09:10)
[2016-09-26] MEDS: TIOTROPIUM BROMIDE DPI 5 CAP/KIT (18 MCG/CAP) IH SCH (09:10)
[2016-09-26] MEDS ORDERED: CEFEPIME 1 GM/D5W RTU 50 ML IV SCH (10:00)
[2016-09-26] MEDS: CEFEPIME HCL 1 GM in DEXTROSE 5%-WATER 50 ML IV SCH ×2 (11:12→21:11)
[2016-09-26] MEDS: NORMAL SALINE 1000 ML 1,000 ML IV PRN (11:13)
[2016-09-26] MEDS: CALCIUM CARBONATE 500 MG TAB.CHEW PO SCH ×3 (11:16→21:09)
[2016-09-26 11:41] LABS: ARTERIAL BLOOD BASE EXCESS 9.2 mmol/L
--- NOTE | 2016-09-26 11:52 | PDOC PROGRESS REPORT ---
Subjective Progress Note for:: 09/26/16 Subjective:: Patient is currently doing fair. Patient's still short of breath patient's white counts go up and patient's sodium levels go down. Patient still not feeling better Patients denied any chest pain Physical Exam Vital Signs: Temp Pulse Resp BP Pulse Ox 97.1 F 97 28 H 151/68 H 99 09/26/16 08:32 09/26/16 08:47 09/26/16 08:47 09/26/16 08:32 09/26/16 08:32 Intake & Output 09/25/16 09/26/16 09/27/16 06:59 06:59 06:59 Intake Total 2553 470 Balance 2553 470 Weight 31.3 kg 33.7 kg General appearance: PRESENT: no acute distress Eye exam: PRESENT: PERRLA Mouth exam: PRESENT: neck supple Respiratory exam: PRESENT: decreased breath sounds. ABSENT: wheezes Cardiovascular exam: PRESENT: +S1, +S2 GI/Abdominal exam: PRESENT: normal bowel sounds, soft Neurological exam: PRESENT: alert, awake, oriented to person, oriented to place Skin exam: PRESENT: dry Results Laboratory Results: 09/26/16 04:51 09/26/16 04:51 09/25/16 09/26/16 09/26/16 10:00 04:51 04:51 WBC 22.5 H RBC 3.80 Hgb 9.8 L Hct 30.6 L MCV 81 MCH 25.7 L MCHC 31.9 L RDW 12.7 Plt Count 356 Seg Neutrophils % Not Reportable Lymphocytes % Not Reportable Monocytes % Not Reportable Eosinophils % Not Reportable Basophils % Not Reportable Absolute Neutrophils Not Reportable Absolute Lymphocytes Not Reportable Absolute Monocytes Not Reportable Absolute Eosinophils Not Reportable Absolute Basophils Not Reportable Carbonic Acid 1.91 H HCO3/H2CO3 Ratio 21:1 ABG pH 7.43 ABG pCO2 63.6 H ABG pO2 61.7 L ABG HCO3 41.0 H ABG O2 Saturation 91.4 L ABG Base Excess 14.0 FiO2 32% Sodium 123.7 L Potassium 5.1 H Chloride 78 L Carbon Dioxide 38 H Anion Gap 8 BUN 21 H Creatinine 0.45 L Est GFR ( Amer) > 60 Est GFR (Non-Af Amer) > 60 Glucose 84 Calcium 9.6 09/26/16 08:40 WBC RBC Hgb Hct MCV MCH MCHC RDW Plt Count Seg Neutrophils % Lymphocytes % Monocytes % Eosinophils % Basophils % Absolute Neutrophils Absolute Lymphocytes Absolute Monocytes Absolute Eosinophils Absolute Basophils Carbonic Acid 1.72 H HCO3/H2CO3 Ratio 20:1 ABG pH 7.41 ABG pCO2 57.2 H ABG pO2 ABG HCO3 35.4 H ABG O2 Saturation ABG Base Excess 9.2 FiO2 4L Sodium Potassium Chloride Carbon Dioxide Anion Gap BUN Creatinine Est GFR ( Amer) Est GFR (Non-Af Amer) Glucose Calcium 09/23/16 04:15 NT-Pro-B Natriuret Pep 527 Impressions: Chest CT 09/22/16 00:00 IMPRESSION: End-stage appearance of obstructive lung disease with thin-walled cavities in the bilateral upper lobes. Cavitary lesion in the superior segment left lower lobe is similar compared to studies pre dating 07/23/2016. Chest X-Ray 09/24/16 00:00 IMPRESSION: Stable increased interstitial markings, hyperinflation and bilateral upper lobe bronchiectasis, volume loss, and consolidation. No new findings Assessment & Plan - Diagnosis (1) COPD exacerbation Is this a current diagnosis for this admission?: YesPlan: Pretty much patient of end-stage emphysema and the patient's currently described as a DNR/DNI and very extensive discussed with the both sister in the room and called both son and explained about the patient's condition is not good and patient's continues to reduce the DNR/DNI Discussed with the pulmonary and adjust antibiotic in the nebulizer (2) Respiratory distress Is this a current diagnosis for this admission?: YesPlan: Continues to current medications get the ABG (3) Bronchial pneumonia Is this a current diagnosis for this admission?: YesPlan: Will stop the Levaquin was not working start the patient and the tobramycin's nebulizer for pulmonary and at the cefepime (4) Hypertension Qualifiers: Hypertension type: essential hypertension Qualified Code(s): I10 - Essential (primary) hypertension Is this a current diagnosis for this admission?: YesPlan: Currently all stable (5) Osteoarthritis Qualifiers: Osteoarthritis location: unspecified site Is this a current diagnosis for this admission?: YesPlan: Stable (6) Congestive heart failure Qualifiers: Congestive heart failure type: diastolic Congestive heart failure chronicity: chronic Qualified Code(s): I50.32 - Chronic diastolic ( congestive) heart failure Is this a current diagnosis for this admission?: Yes (7) Pulmonary nodule Is this a current diagnosis for this admission?: Yes - Time Time Spent with patient: 15-24 minutes Medications reviewed and adjusted accordingly: Yes Anticipated discharge: Other Within: Other - Inpatient Certification Medical Necessity: Need Close Monitoring Due to Risk of Patient Decompensation, Need for IV Antibiotics 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
[2016-09-26] MEDS: TOBRAMYCIN SULFATE NEB 40 MG/ML 30 ML NEB SCH (19:56)
[2016-09-26] MEDS: MONTELUKAST SODIUM 10 MG TABLET PO SCH (21:10)
[2016-09-27 04:35] LABS: HEMATOCRIT 31.5 % (36.0-47.0); HEMOGLOBIN 10.2 g/dL (12.0-15.5); HGB HCT DIFFERENCE -0.9; MEAN CORPUSCULAR HEMOGLOBIN 25.9 pg (27.0-33.4); MEAN CORPUSCULAR HGB CONC 32.5 g/dL (32.0-36.0); MEAN CORPUSCULAR VOLUME 80 fl (80-97); RED BLOOD COUNT 3.95 10^6/uL (3.72-5.28); RED CELL DISTRIBUTION WIDTH 12.5 % (11.5-14.0)
[2016-09-27 04:43] LABS: BLOOD UREA NITROGEN 14 mg/dL (7-20); CALCIUM 9.7 mg/dL (8.4-10.2); CHLORIDE 81 mmol/L (98-107); CREATININE RESULT 0.55 mg/dL (0.52-1.25); GLUCOSE 69 mg/dL (75-110)
[2016-09-27 04:51] LABS: ANION GAP 5 (5-19); SODIUM 126.3 mmol/L (137-145)
[2016-09-27 04:57] LABS: POTASSIUM 4.1 mmol/L (3.6-5.0)
[2016-09-27 04:59] LABS: BASOPHILS % (MANUAL) 0 % (0-2); CARBON DIOXIDE 40 mmol/L (22-30); EOSINOPHILS % (MANUAL) 0 % (0-6); LYMPHOCYTES % (MANUAL) 10 % (13-45); TOTAL CELLS COUNTED 100
[2016-09-27 05:00] LABS: MICROCYTOSIS SLIGHT; TOXIC GRANULATION 1+; TOXIC VACUOLATION PRESENT
[2016-09-27] MEDS: BUSPIRONE HCL 10 MG TABLET PO SCH ×3 (05:37→22:14)
[2016-09-27] MEDS: DILTIAZEM HCL 60 MG TABLET PO SCH ×3 (05:37→22:15)
[2016-09-27] MEDS: NYSTATIN/DEXAMETH/DIPHEN SUSP 120 ML PO SCH ×3 (05:38→17:22)
[2016-09-27 05:59] LABS: ARTERIAL BLOOD BASE EXCESS 14.7 mmol/L; ARTERIAL BLOOD O2 SATURATION 92.7 % (94-98)
[2016-09-27] MEDS: IPRATROPIUM/ALBUTEROL 0.5-2.5 MG/3 ML AMPUL NEB PRN ×3 (08:11→20:29)
[2016-09-27] MEDS: TOBRAMYCIN SULFATE NEB 40 MG/ML 30 ML NEB SCH ×2 (08:11→20:28)
--- NOTE | 2016-09-27 09:18 | RADIOLOGY REPORT (SQ) ---
EXAM DESCRIPTION: CHEST PA/LAT COMPLETED DATE/TIME: 09/27/2016 8:57 am REASON FOR STUDY: pna/resp fail COMPARISON: 09/24/2016. 09/22/2016 CT. 11/06/2014 radiographs. TECHNIQUE: Frontal and lateral radiographic views of the chest acquired. NUMBER OF VIEWS: Two view. LIMITATIONS: None. FINDINGS: LUNGS AND PLEURA: Stable changes. Hyperinflated, COPD with extensive upper lobe scarring and mild airspace disease. No new infiltrates detected. MEDIASTINUM AND HILAR STRUCTURES: No masses or contour abnormalities. HEART AND VASCULAR STRUCTURES: Heart normal size. No evidence for failure. BONES: Osteopenic. HARDWARE: None in the chest. OTHER: No other significant finding. IMPRESSION: Stable chest. TECHNICAL DOCUMENTATION: JOB ID: [id number] [employer]- All Rights Reserved
[2016-09-27] MEDS: CEFEPIME HCL 1 GM in DEXTROSE 5%-WATER 50 ML IV SCH ×2 (10:46→22:15)
[2016-09-27] MEDS: FAMOTIDINE 20 MG TABLET PO SCH (10:49)
[2016-09-27] MEDS: PREDNISONE 10 MG TABLET PO SCH (10:49)
[2016-09-27] MEDS: CETIRIZINE 10 MG TABLET PO SCH (10:49)
[2016-09-27] MEDS: LISINOPRIL 10 MG TABLET PO SCH (10:49)
[2016-09-27] MEDS: ROFLUMILAST 500 MCG TABLET PO SCH (10:51)
[2016-09-27] MEDS: FLUTICASONE/SALMETEROL DISKUS 500-50 MCG/DOSE IH SCH ×2 (10:51→22:13)
[2016-09-27] MEDS: [UNRECOGNIZED DRUG - OTHER] PO SCH (10:53)
[2016-09-27] MEDS: CALCIUM CARBONATE 500 MG TAB.CHEW PO SCH ×4 (10:54→22:14)
--- NOTE | 2016-09-27 19:23 | PDOC PROGRESS REPORT ---
Subjective Progress Note for:: 09/27/16 Subjective:: I had a good night Physical Exam Vital Signs: Temp Pulse Resp BP Pulse Ox 98.3 F 98 22 H 146/69 H 98 09/27/16 12:07 09/27/16 13:43 09/27/16 13:43 09/27/16 12:07 09/27/16 12:07 Intake & Output 09/26/16 09/27/16 09/28/16 06:59 06:59 06:59 Intake Total 470 1576 350 Output Total 0 500 Balance 470 1576 -150 Weight 33.7 kg 31.5 kg General appearance: PRESENT: cooperative, disheveled, well-developed Head exam: PRESENT: atraumatic, normocephalic Eye exam: PRESENT: conjunctiva pale, EOMI Mouth exam: PRESENT: moist, neck supple Neck exam: ABSENT: carotid bruit, JVD, lymphadenopathy, thyromegaly Respiratory exam: PRESENT: decreased breath sounds, prolonged expiratory phas, rhonchi, unlabored Cardiovascular exam: PRESENT: RRR, +S1, +S2 Pulses: PRESENT: normal radial pulses GI/Abdominal exam: PRESENT: normal bowel sounds, soft. ABSENT: distended, guarding, mass, organolmegaly, rebound, tenderness Rectal exam: PRESENT: deferred Musculoskeletal exam: PRESENT: normal inspection Neurological exam: PRESENT: alert, awake Psychiatric exam: PRESENT: normal mood Skin exam: PRESENT: dry, warm Results Laboratory Results: 09/27/16 03:47 09/27/16 03:47 09/27/16 09/27/16 09/27/16 03:47 03:47 05:35 WBC 20.0 H RBC 3.95 Hgb 10.2 L Hct 31.5 L MCV 80 MCH 25.9 L MCHC 32.5 RDW 12.5 Plt Count 338 Seg Neutrophils % Not Reportable Lymphocytes % Not Reportable Monocytes % Not Reportable Eosinophils % Not Reportable Basophils % Not Reportable Absolute Neutrophils Not Reportable Absolute Lymphocytes Not Reportable Absolute Monocytes Not Reportable Absolute Eosinophils Not Reportable Absolute Basophils Not Reportable Carbonic Acid 2.09 H HCO3/H2CO3 Ratio 20:1 ABG pH 7.40 ABG pCO2 69.5 H* ABG pO2 67.7 L ABG HCO3 42.2 H ABG O2 Saturation 92.7 L ABG Base Excess 14.7 FiO2 3 LITERS Sodium 126.3 L Potassium 4.1 D Chloride 81 L Carbon Dioxide 40 H* Anion Gap 5 BUN 14 Creatinine 0.55 Est GFR ( Amer) > 60 Est GFR (Non-Af Amer) > 60 Glucose 69 L Calcium 9.7 09/23/16 04:15 NT-Pro-B Natriuret Pep 527 Impressions: Chest CT 09/22/16 00:00 IMPRESSION: End-stage appearance of obstructive lung disease with thin-walled cavities in the bilateral upper lobes. Cavitary lesion in the superior segment left lower lobe is similar compared to studies pre dating 07/23/2016. Chest X-Ray 09/27/16 06:00 IMPRESSION: Stable chest. Assessment & Plan - Diagnosis (1) Respiratory failure with hypoxia and hypercapnia Is this a current diagnosis for this admission?: YesPlan: Patient stable (2) Bronchial pneumonia Is this a current diagnosis for this admission?: YesPlan: No cough, afebrile white count still elevated with a left shift no bandemia (3) Breast cancer Qualifiers: Laterality: bilateral Is this a current diagnosis for this admission?: Yes
[2016-09-27] MEDS: TIOTROPIUM BROMIDE DPI 5 CAP/KIT (18 MCG/CAP) IH SCH (19:25)
--- NOTE | 2016-09-27 21:32 | PDOC PROGRESS REPORT ---
Subjective Progress Note for:: 09/27/16 Subjective:: Patient reported some improvement in her breathing today. Remain on IV Cefepime and Tobramycin Neb therapy. No reported fever chills. No nausea, vomiting or abdominal pain. Bowel movement is satisfactory. Physical Exam Vital Signs: Temp Pulse Resp BP Pulse Ox 98.1 F 107 H 22 H 134/72 H 96 09/27/16 20:15 09/27/16 20:29 09/27/16 20:29 09/27/16 20:15 09/27/16 20:15 Intake & Output 09/26/16 09/27/16 09/28/16 06:59 06:59 06:59 Intake Total 470 1576 350 Output Total 0 500 Balance 470 1576 -150 Weight 33.7 kg 31.5 kg General appearance: PRESENT: no acute distress, mild distress - with supplemental oxygen vis nasal canula, thin Head exam: PRESENT: atraumatic, normocephalic Eye exam: PRESENT: conjunctiva pink, EOMI, PERRLA. ABSENT: scleral icterus Respiratory exam: PRESENT: decreased breath sounds - at lung bases Cardiovascular exam: PRESENT: RRR, tachycardia GI/Abdominal exam: PRESENT: normal bowel sounds, soft. ABSENT: distended, guarding, mass, organolmegaly, rebound, tenderness Extremities exam: ABSENT: pedal edema Neurological exam: PRESENT: alert, awake, oriented to person, oriented to place , oriented to time, oriented to situation, CN II-XII grossly intact. ABSENT: motor sensory deficit Psychiatric exam: PRESENT: appropriate affect, normal mood. ABSENT: homicidal ideation, suicidal ideation Skin exam: PRESENT: dry, intact, warm. ABSENT: cyanosis, rash Results Laboratory Results: 09/27/16 03:47 09/27/16 03:47 09/27/16 09/27/16 09/27/16 03:47 03:47 05:35 WBC 20.0 H RBC 3.95 Hgb 10.2 L Hct 31.5 L MCV 80 MCH 25.9 L MCHC 32.5 RDW 12.5 Plt Count 338 Seg Neutrophils % Not Reportable Lymphocytes % Not Reportable Monocytes % Not Reportable Eosinophils % Not Reportable Basophils % Not Reportable Absolute Neutrophils Not Reportable Absolute Lymphocytes Not Reportable Absolute Monocytes Not Reportable Absolute Eosinophils Not Reportable Absolute Basophils Not Reportable Carbonic Acid 2.09 H HCO3/H2CO3 Ratio 20:1 ABG pH 7.40 ABG pCO2 69.5 H* ABG pO2 67.7 L ABG HCO3 42.2 H ABG O2 Saturation 92.7 L ABG Base Excess 14.7 FiO2 3 LITERS Sodium 126.3 L Potassium 4.1 D Chloride 81 L Carbon Dioxide 40 H* Anion Gap 5 BUN 14 Creatinine 0.55 Est GFR ( Amer) > 60 Est GFR (Non-Af Amer) > 60 Glucose 69 L Calcium 9.7 09/23/16 04:15 NT-Pro-B Natriuret Pep 527 Impressions: Chest CT 09/22/16 00:00 IMPRESSION: End-stage appearance of obstructive lung disease with thin-walled cavities in the bilateral upper lobes. Cavitary lesion in the superior segment left lower lobe is similar compared to studies pre dating 07/23/2016. Chest X-Ray 09/27/16 06:00 IMPRESSION: Stable chest. Assessment & Plan - Diagnosis (1) Respiratory failure with hypoxia and hypercapnia Qualifiers: Chronicity: chronic Qualified Code(s): J96.11 - Chronic respiratory failure with hypoxia; J96.12 - Chronic respiratory failure with hypercapnia Is this a current diagnosis for this admission?: YesPlan: See covering attending physician orders. (2) Bronchial pneumonia Is this a current diagnosis for this admission?: YesPlan: See attending physician orders. Continue Tobramycin Neb and IV Cefepime coverage. (3) Hypertension Qualifiers: Hypertension type: essential hypertension Qualified Code(s): I10 - Essential (primary) hypertension Is this a current diagnosis for this admission?: YesPlan: See attending physician orders. (4) Osteoarthritis Qualifiers: Osteoarthritis location: unspecified site Osteoarthritis type: unspecified Qualified Code(s): M19.90 - Unspecified osteoarthritis, unspecified site Is this a current diagnosis for this admission?: YesPlan: See attending physician orders. 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
[2016-09-27] MEDS: MONTELUKAST SODIUM 10 MG TABLET PO SCH (22:15)
[2016-09-28] MEDS: NYSTATIN/DEXAMETH/DIPHEN SUSP 120 ML PO SCH ×5 (00:33→23:12)
[2016-09-28] MEDS: BUSPIRONE HCL 10 MG TABLET PO SCH ×3 (06:46→22:57)
[2016-09-28] MEDS: DILTIAZEM HCL 60 MG TABLET PO SCH ×3 (06:46→22:58)
[2016-09-28] MEDS: IPRATROPIUM/ALBUTEROL 0.5-2.5 MG/3 ML AMPUL NEB PRN ×2 (08:40→20:21)
[2016-09-28] MEDS: TOBRAMYCIN SULFATE NEB 40 MG/ML 30 ML NEB SCH ×2 (08:40→20:21)
[2016-09-28] MEDS: LISINOPRIL 10 MG TABLET PO SCH (09:21)
[2016-09-28] MEDS: [UNRECOGNIZED DRUG - OTHER] PO SCH (09:21)
[2016-09-28] MEDS: CETIRIZINE 10 MG TABLET PO SCH (09:22)
[2016-09-28] MEDS: PREDNISONE 10 MG TABLET PO SCH (09:22)
[2016-09-28] MEDS: FAMOTIDINE 20 MG TABLET PO SCH (09:22)
[2016-09-28] MEDS: CALCIUM CARBONATE 500 MG TAB.CHEW PO SCH ×4 (09:23→22:57)
[2016-09-28] MEDS: FLUTICASONE/SALMETEROL DISKUS 500-50 MCG/DOSE IH SCH ×2 (09:26→22:56)
[2016-09-28] MEDS: CEFEPIME HCL 1 GM in DEXTROSE 5%-WATER 50 ML IV SCH ×2 (09:27→23:11)
[2016-09-28] MEDS: ROFLUMILAST 500 MCG TABLET PO SCH (09:27)
[2016-09-28] MEDS: TIOTROPIUM BROMIDE DPI 5 CAP/KIT (18 MCG/CAP) IH SCH (13:27)
--- NOTE | 2016-09-28 14:42 | PDOC PROGRESS REPORT ---
Subjective Progress Note for:: 09/28/16 Subjective:: Patient reported some improvement in her breathing today. Remain on IV Cefepime and Tobramycin Neb therapy. No reported fever chills. No nausea, vomiting or abdominal pain. Bowel movement is satisfactory. Physical Exam Vital Signs: Temp Pulse Resp BP Pulse Ox 97.5 F 91 21 H 123/55 L 94 09/28/16 08:23 09/28/16 08:40 09/28/16 08:40 09/28/16 08:23 09/28/16 08:23 Intake & Output 09/27/16 09/28/16 09/29/16 06:59 06:59 06:59 Intake Total 1576 1160 Output Total 0 500 Balance 1576 660 Weight 31.5 kg 32.5 kg Physical Exam: General appearance: PRESENT: no acute distress, mild distress - with supplemental oxygen vis nasal canula, thin Head exam: PRESENT: atraumatic, normocephalic Eye exam: PRESENT: conjunctiva pink, EOMI, PERRLA. ABSENT: scleral icterus Respiratory exam: PRESENT: decreased breath sounds - at lung bases Cardiovascular exam: PRESENT: RRR, tachycardia GI/Abdominal exam: PRESENT: normal bowel sounds, soft. ABSENT: distended, guarding, mass, organolmegaly, rebound, tenderness Extremities exam: ABSENT: pedal edema Neurological exam: PRESENT: alert, awake, oriented to person, oriented to place , oriented to time, oriented to situation, CN II-XII grossly intact. ABSENT: motor sensory deficit Psychiatric exam: PRESENT: appropriate affect, normal mood. ABSENT: homicidal ideation, suicidal ideation Skin exam: PRESENT: dry, intact, warm. ABSENT: cyanosis, rash Results Laboratory Results: 09/27/16 03:47 09/27/16 03:47 09/23/16 04:15 NT-Pro-B Natriuret Pep 527 Impressions: Chest CT 09/22/16 00:00 IMPRESSION: End-stage appearance of obstructive lung disease with thin-walled cavities in the bilateral upper lobes. Cavitary lesion in the superior segment left lower lobe is similar compared to studies pre dating 07/23/2016. Chest X-Ray 09/27/16 06:00 IMPRESSION: Stable chest. Assessment & Plan - Diagnosis (1) Respiratory failure with hypoxia and hypercapnia Qualifiers: Chronicity: chronic Qualified Code(s): J96.11 - Chronic respiratory failure with hypoxia; J96.12 - Chronic respiratory failure with hypercapnia Is this a current diagnosis for this admission?: Yes (2) Bronchial pneumonia Is this a current diagnosis for this admission?: Yes (3) Hypertension Qualifiers: Hypertension type: essential hypertension Qualified Code(s): I10 - Essential (primary) hypertension Is this a current diagnosis for this admission?: Yes (4) Osteoarthritis Qualifiers: Osteoarthritis location: unspecified site Osteoarthritis type: unspecified Qualified Code(s): M19.90 - Unspecified osteoarthritis, unspecified site Is this a current diagnosis for this admission?: Yes - Time Time Spent with patient: 25-34 minutes Medications reviewed and adjusted accordingly: Yes Anticipated discharge: Home with Homehealth Within: Other - Inpatient Certification Medical Necessity: Need Close Monitoring Due to Risk of Patient Decompensation, Need For Continuous Telemetry Monitoring, Need for Nebulizer Therapy and Monitoring of Response, Need for IV Antibiotics, Risk of Complication if Not Cared For in Hospital 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
[2016-09-28] MEDS: MONTELUKAST SODIUM 10 MG TABLET PO SCH (22:56)
[2016-09-29 05:23] LABS: BLOOD UREA NITROGEN 20 mg/dL (7-20); CALCIUM 10.3 mg/dL (8.4-10.2); CHLORIDE 83 mmol/L (98-107); CREATININE RESULT 0.54 mg/dL (0.52-1.25); GLUCOSE 75 mg/dL (75-110); POTASSIUM 5.4 mmol/L (3.6-5.0); SODIUM 134.6 mmol/L (137-145)
[2016-09-29] MEDS: DILTIAZEM HCL 60 MG TABLET PO SCH ×3 (05:28→21:26)
[2016-09-29] MEDS: NYSTATIN/DEXAMETH/DIPHEN SUSP 120 ML PO SCH ×3 (05:29→18:21)
[2016-09-29] MEDS: NORMAL SALINE 1000 ML 1,000 ML IV PRN (05:29)
[2016-09-29] MEDS: BUSPIRONE HCL 10 MG TABLET PO SCH ×3 (05:29→21:25)
[2016-09-29 05:37] LABS: HEMOGLOBIN 10.3 g/dL (12.0-15.5); HGB HCT DIFFERENCE -2.1; MEAN CORPUSCULAR HEMOGLOBIN 25.3 pg (27.0-33.4); MEAN CORPUSCULAR HGB CONC 31.1 g/dL (32.0-36.0); MEAN CORPUSCULAR VOLUME 81 fl (80-97); RED BLOOD COUNT 4.07 10^6/uL (3.72-5.28); RED CELL DISTRIBUTION WIDTH 13.1 % (11.5-14.0); WHITE BLOOD COUNT 21.6 10^3/uL (4.0-10.5)
[2016-09-29 05:41] LABS: ANION GAP 7 (5-19); CARBON DIOXIDE 45 mmol/L (22-30)
[2016-09-29 05:44] LABS: BASOPHILS % (MANUAL) 0 % (0-2); EOSINOPHILS % (MANUAL) 0 % (0-6); LYMPHOCYTES % (MANUAL) 11 % (13-45); TOTAL CELLS COUNTED 100
[2016-09-29 05:52] LABS: ACANTHOCYTES SLIGHT; HYPOCHROMASIA 1+; PLATELET CLUMPS PRESENT; POIKILOCYTOSIS SLIGHT
[2016-09-29 05:53] LABS: TOXIC VACUOLATION PRESENT
[2016-09-29] MEDS: IPRATROPIUM/ALBUTEROL 0.5-2.5 MG/3 ML AMPUL NEB PRN ×2 (06:05→20:01)
[2016-09-29] MEDS: TOBRAMYCIN SULFATE NEB 40 MG/ML 30 ML NEB SCH ×2 (08:16→20:01)
--- NOTE | 2016-09-29 09:14 | PDOC PROGRESS REPORT ---
Subjective Progress Note for:: 09/29/16 Subjective:: Patient reported dissatisfaction with reduction of her supplemental oxygen to 2.5L/min via nasal canula. No reported fever chills. No nausea, vomiting or abdominal pain. Bowel movement is satisfactory.She remain on IV Cefepime and Tobramycin Neb therapy. Physical Exam Vital Signs: Temp Pulse Resp BP Pulse Ox 97.8 F 99 20 125/59 L 90 L 09/29/16 08:03 09/29/16 08:19 09/29/16 08:19 09/29/16 08:03 09/29/16 08:19 Intake & Output 09/28/16 09/29/16 09/30/16 06:59 06:59 06:59 Intake Total 1160 2125 Output Total 500 Balance 660 2125 Weight 32.5 kg 31.5 kg Results Laboratory Results: 09/29/16 04:17 09/29/16 04:17 09/29/16 09/29/16 04:17 04:17 WBC 21.6 H RBC 4.07 Hgb 10.3 L Hct 33.0 L MCV 81 MCH 25.3 L MCHC 31.1 L RDW 13.1 Plt Count 411 Seg Neutrophils % Not Reportable Lymphocytes % Not Reportable Monocytes % Not Reportable Eosinophils % Not Reportable Basophils % Not Reportable Absolute Neutrophils Not Reportable Absolute Lymphocytes Not Reportable Absolute Monocytes Not Reportable Absolute Eosinophils Not Reportable Absolute Basophils Not Reportable Sodium 134.6 L Potassium 5.4 H Chloride 83 L Carbon Dioxide 45 H* Anion Gap 7 BUN 20 Creatinine 0.54 Est GFR ( Amer) > 60 Est GFR (Non-Af Amer) > 60 Glucose 75 Calcium 10.3 H 09/23/16 04:15 NT-Pro-B Natriuret Pep 527 Impressions: Chest CT 09/22/16 00:00 IMPRESSION: End-stage appearance of obstructive lung disease with thin-walled cavities in the bilateral upper lobes. Cavitary lesion in the superior segment left lower lobe is similar compared to studies pre dating 07/23/2016. Chest X-Ray 09/27/16 06:00 IMPRESSION: Stable chest. Assessment & Plan - Diagnosis (1) Respiratory failure with hypoxia and hypercapnia Qualifiers: Chronicity: chronic Qualified Code(s): J96.11 - Chronic respiratory failure with hypoxia; J96.12 - Chronic respiratory failure with hypercapnia Is this a current diagnosis for this admission?: Yes (2) Bronchial pneumonia Is this a current diagnosis for this admission?: Yes (3) Hypertension Qualifiers: Hypertension type: essential hypertension Qualified Code(s): I10 - Essential (primary) hypertension Is this a current diagnosis for this admission?: Yes (4) Osteoarthritis Qualifiers: Osteoarthritis location: unspecified site Osteoarthritis type: unspecified Qualified Code(s): M19.90 - Unspecified osteoarthritis, unspecified site Is this a current diagnosis for this admission?: Yes - Time Time Spent with patient: 25-34 minutes Medications reviewed and adjusted accordingly: Yes Within: Other - Inpatient Certification Based on my medical assessment, after consideration of the patient's comorbidities, presenting symptoms, or acuity I expect that the services needed warrant INPATIENT care.: Yes I certify that my determination is in accordance with my understanding of Medicare's requirements for reasonable and necessary INPATIENT services [42 CFR 412.3e].: Yes Medical Necessity: Need Close Monitoring Due to Risk of Patient Decompensation, Need For IV Fluids, Need For Continuous Telemetry Monitoring, Need for Nebulizer Therapy and Monitoring of Response, Need for IV Antibiotics, Risk of Complication if Not Cared For in Hospital 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 Maintain on current rate and adjust as needed.
[2016-09-29] MEDS: CALCIUM CARBONATE 500 MG TAB.CHEW PO SCH ×4 (09:49→21:26)
[2016-09-29] MEDS: FAMOTIDINE 20 MG TABLET PO SCH (09:50)
[2016-09-29] MEDS: [UNRECOGNIZED DRUG - OTHER] PO SCH (09:50)
[2016-09-29] MEDS: CETIRIZINE 10 MG TABLET PO SCH (09:51)
[2016-09-29] MEDS: PREDNISONE 10 MG TABLET PO SCH (09:51)
[2016-09-29] MEDS: ROFLUMILAST 500 MCG TABLET PO SCH (09:51)
[2016-09-29] MEDS: LISINOPRIL 10 MG TABLET PO SCH (09:51)
[2016-09-29] MEDS: FLUTICASONE/SALMETEROL DISKUS 500-50 MCG/DOSE IH SCH ×2 (09:52→21:34)
[2016-09-29] MEDS: CEFEPIME HCL 1 GM in DEXTROSE 5%-WATER 50 ML IV SCH ×2 (09:53→21:32)
[2016-09-29] MEDS: TIOTROPIUM BROMIDE DPI 5 CAP/KIT (18 MCG/CAP) IH SCH (09:53)
--- NOTE | 2016-09-29 11:11 | PDOC PROGRESS REPORT ---
Subjective Progress Note for:: 09/29/16 Subjective:: somewhat more lethargic this morning was placed on BiPAP ABG appears to be at or near her baseline Physical Exam Vital Signs: Temp Pulse Resp BP Pulse Ox 97.8 F 99 20 125/59 L 90 L 09/29/16 08:03 09/29/16 08:19 09/29/16 08:19 09/29/16 08:03 09/29/16 08:19 Intake & Output 09/28/16 09/29/16 09/30/16 06:59 06:59 06:59 Intake Total 1160 2125 Output Total 500 Balance 660 2125 Weight 32.5 kg 31.5 kg Results Laboratory Results: 09/29/16 04:17 09/29/16 04:17 09/29/16 09/29/16 04:17 04:17 WBC 21.6 H RBC 4.07 Hgb 10.3 L Hct 33.0 L MCV 81 MCH 25.3 L MCHC 31.1 L RDW 13.1 Plt Count 411 Seg Neutrophils % Not Reportable Lymphocytes % Not Reportable Monocytes % Not Reportable Eosinophils % Not Reportable Basophils % Not Reportable Absolute Neutrophils Not Reportable Absolute Lymphocytes Not Reportable Absolute Monocytes Not Reportable Absolute Eosinophils Not Reportable Absolute Basophils Not Reportable Sodium 134.6 L Potassium 5.4 H Chloride 83 L Carbon Dioxide 45 H* Anion Gap 7 BUN 20 Creatinine 0.54 Est GFR ( Amer) > 60 Est GFR (Non-Af Amer) > 60 Glucose 75 Calcium 10.3 H 09/23/16 04:15 NT-Pro-B Natriuret Pep 527 Impressions: Chest CT 09/22/16 00:00 IMPRESSION: End-stage appearance of obstructive lung disease with thin-walled cavities in the bilateral upper lobes. Cavitary lesion in the superior segment left lower lobe is similar compared to studies pre dating 07/23/2016. Chest X-Ray 09/27/16 06:00 IMPRESSION: Stable chest. Assessment & Plan - Diagnosis (1) Respiratory failure with hypoxia and hypercapnia Qualifiers: Chronicity: chronic Qualified Code(s): J96.11 - Chronic respiratory failure with hypoxia; J96.12 - Chronic respiratory failure with hypercapnia Is this a current diagnosis for this admission?: Yes (2) Bronchial pneumonia Is this a current diagnosis for this admission?: Yes (3) Breast cancer Qualifiers: Laterality: bilateral Is this a current diagnosis for this admission?: Yes
[2016-09-29] MEDS: MONTELUKAST SODIUM 10 MG TABLET PO SCH (21:26)
[2016-09-30] MEDS: NYSTATIN/DEXAMETH/DIPHEN SUSP 120 ML PO SCH ×5 (00:26→23:20)
[2016-09-30] MEDS: BUSPIRONE HCL 10 MG TABLET PO SCH ×3 (05:39→22:06)
[2016-09-30] MEDS: DILTIAZEM HCL 60 MG TABLET PO SCH ×3 (05:39→22:07)
[2016-09-30] MEDS: [UNRECOGNIZED DRUG - OTHER] PO SCH (05:41)
[2016-09-30] MEDS: TOBRAMYCIN SULFATE NEB 40 MG/ML 30 ML NEB SCH ×2 (08:08→19:40)
[2016-09-30] MEDS: IPRATROPIUM/ALBUTEROL 0.5-2.5 MG/3 ML AMPUL NEB PRN ×3 (08:08→19:41)
[2016-09-30] MEDS: PREDNISONE 10 MG TABLET PO SCH (09:15)
[2016-09-30] MEDS: CETIRIZINE 10 MG TABLET PO SCH (09:15)
[2016-09-30] MEDS: CALCIUM CARBONATE 500 MG TAB.CHEW PO SCH ×4 (09:15→22:04)
[2016-09-30] MEDS: LISINOPRIL 10 MG TABLET PO SCH (09:15)
[2016-09-30] MEDS: FLUTICASONE/SALMETEROL DISKUS 500-50 MCG/DOSE IH SCH ×2 (09:16→22:00)
[2016-09-30] MEDS: FAMOTIDINE 20 MG TABLET PO SCH (09:16)
[2016-09-30] MEDS: ROFLUMILAST 500 MCG TABLET PO SCH (09:16)
[2016-09-30] MEDS: TIOTROPIUM BROMIDE DPI 5 CAP/KIT (18 MCG/CAP) IH SCH (09:17)
[2016-09-30] MEDS: CEFEPIME HCL 1 GM in DEXTROSE 5%-WATER 50 ML IV SCH ×2 (09:28→21:59)
[2016-09-30] MEDS: NORMAL SALINE 1000 ML 1,000 ML IV PRN (16:23)
--- NOTE | 2016-09-30 21:19 | PDOC PROGRESS REPORT ---
Subjective Progress Note for:: 09/30/16 Subjective:: Patient remain on supplemental oxygen with rate of 2.5 - 3 L/min as per suggestion based on continuos pulse oximetry. No reported fever chills. No nausea, vomiting or abdominal pain. Bowel movement is satisfactory. She remain on IV Cefepime. She reported intolerance of Tobramycin Neb therapy and refused treatment. Physical Exam Vital Signs: Temp Pulse Resp BP Pulse Ox 97.5 F 105 H 20 128/68 H 96 09/30/16 15:14 09/30/16 19:41 09/30/16 19:41 09/30/16 15:14 09/30/16 19:41 Pulse Oximeter Continuous Start: 09/29/16 09: 14 Freq: RTQ4 Status: Active Document 09/30/16 19:41 [facility] (Rec: 09/30/16 19:49 [facility] [email or web address]) Pulse Oximetry Assessment Oxygen Saturation (92-100) 96 Oxygen Flow Rate (L/min) 2.5 Oxygen Delivery Method Nasal Cannula Equipment Usage Equipment in Use Continuous SpO2 Machine # N-6 Intake & Output 09/29/16 09/30/16 10/01/16 06:59 06:59 06:59 Intake Total 2123 3318 568 Balance 2125 3314 568 Weight 31.5 kg 31.8 kg Physical Exam: General appearance: PRESENT: no acute distress, mild distress - with supplemental oxygen vis nasal canula, thin Head exam: PRESENT: atraumatic, normocephalic Eye exam: PRESENT: conjunctiva pink, EOMI, PERRLA. ABSENT: scleral icterus Respiratory exam: PRESENT: decreased breath sounds - at lung bases Cardiovascular exam: PRESENT: RRR, tachycardia GI/Abdominal exam: PRESENT: normal bowel sounds, soft. ABSENT: distended, guarding, mass, organolmegaly, rebound, tenderness Extremities exam: ABSENT: pedal edema Neurological exam: PRESENT: alert, awake, oriented to person, oriented to place , oriented to time, oriented to situation, CN II-XII grossly intact. ABSENT: motor sensory deficit Psychiatric exam: PRESENT: appropriate affect, normal mood. ABSENT: homicidal ideation, suicidal ideation Skin exam: PRESENT: dry, intact, warm. ABSENT: cyanosis, rash Results Laboratory Results: 09/29/16 04:17 09/29/16 04:17 09/23/16 04:15 NT-Pro-B Natriuret Pep 527 Impressions: Chest CT 09/22/16 00:00 IMPRESSION: End-stage appearance of obstructive lung disease with thin-walled cavities in the bilateral upper lobes. Cavitary lesion in the superior segment left lower lobe is similar compared to studies pre dating 07/23/2016. Chest X-Ray 09/27/16 06:00 IMPRESSION: Stable chest. Assessment & Plan - Diagnosis (1) Respiratory failure with hypoxia and hypercapnia Qualifiers: Chronicity: chronic Qualified Code(s): J96.11 - Chronic respiratory failure with hypoxia; J96.12 - Chronic respiratory failure with hypercapnia Is this a current diagnosis for this admission?: Yes (2) Bronchial pneumonia Is this a current diagnosis for this admission?: Yes (3) Hypertension Qualifiers: Hypertension type: essential hypertension Qualified Code(s): I10 - Essential (primary) hypertension Is this a current diagnosis for this admission?: Yes (4) Osteoarthritis Qualifiers: Osteoarthritis location: unspecified site Osteoarthritis type: unspecified Qualified Code(s): M19.90 - Unspecified osteoarthritis, unspecified site Is this a current diagnosis for this admission?: Yes - Time Time Spent with patient: 25-34 minutes Medications reviewed and adjusted accordingly: Yes Anticipated discharge: Home with Homehealth Within: Other - Inpatient Certification Medical Necessity: Need Close Monitoring Due to Risk of Patient Decompensation, Need For Continuous Telemetry Monitoring, Need for Nebulizer Therapy and Monitoring of Response, Need for IV Antibiotics, Risk of Complication if Not Cared For in Hospital Post Hospital Care: D/C Residential 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
[2016-09-30] MEDS: MONTELUKAST SODIUM 10 MG TABLET PO SCH (22:06)
[2016-10-01] MEDS: NYSTATIN/DEXAMETH/DIPHEN SUSP 120 ML PO SCH ×3 (05:30→17:44)
[2016-10-01] MEDS: [UNRECOGNIZED DRUG - OTHER] PO SCH (05:31)
[2016-10-01] MEDS: BUSPIRONE HCL 10 MG TABLET PO SCH ×3 (05:35→22:28)
[2016-10-01] MEDS: DILTIAZEM HCL 60 MG TABLET PO SCH ×3 (05:36→22:29)
[2016-10-01] MEDS: CALCIUM CARBONATE 500 MG TAB.CHEW PO SCH ×4 (09:09→22:27)
[2016-10-01] MEDS: FAMOTIDINE 20 MG TABLET PO SCH (09:09)
[2016-10-01] MEDS: LISINOPRIL 10 MG TABLET PO SCH (09:09)
[2016-10-01] MEDS: PREDNISONE 10 MG TABLET PO SCH (09:09)
[2016-10-01] MEDS: ROFLUMILAST 500 MCG TABLET PO SCH (09:09)
[2016-10-01] MEDS: CETIRIZINE 10 MG TABLET PO SCH (09:09)
[2016-10-01] MEDS: FLUTICASONE/SALMETEROL DISKUS 500-50 MCG/DOSE IH SCH ×2 (09:10→22:26)
[2016-10-01] MEDS: TIOTROPIUM BROMIDE DPI 5 CAP/KIT (18 MCG/CAP) IH SCH (09:10)
[2016-10-01] MEDS: CEFEPIME HCL 1 GM in DEXTROSE 5%-WATER 50 ML IV SCH ×2 (09:10→22:26)
[2016-10-01] MEDS: IPRATROPIUM/ALBUTEROL 0.5-2.5 MG/3 ML AMPUL NEB PRN (09:32)
[2016-10-01] MEDS: TOBRAMYCIN SULFATE NEB 40 MG/ML 30 ML NEB SCH ×2 (09:33→20:07)
--- NOTE | 2016-10-01 10:09 | PDOC PROGRESS REPORT ---
Subjective Progress Note for:: 10/01/16 Subjective:: Patient is currently doing fair since last 4 days no other events happens. Patient still feeling on and off short of breath but nothing back to the baselinePatients denied any chest pain.Patients noticed that after she used a tobramycin's nebulizer treatment she felt more short of breath yesterday but feels better today Son and the sister both in the bedside discussed with the patient's current conditions Physical Exam Vital Signs: Temp Pulse Resp BP Pulse Ox 97.9 F 83 24 H 125/57 L 95 10/01/16 07:25 10/01/16 07:25 10/01/16 07:25 10/01/16 07:25 10/01/16 07:25 Pulse Oximeter Continuous Start: 09/29/16 09: 14 Freq: RTQ4 Status: Active Document 10/01/16 04:00 SFL (Rec: 10/01/16 05:12 SFL [email or web address]) Pulse Oximetry Assessment Oxygen Saturation (92-100) 97 Oxygen Flow Rate (L/min) 28 Oxygen Delivery Method Bi-pap Equipment Usage Equipment in Use Continuous SpO2 Machine # 6 Intake & Output 09/30/16 10/01/16 10/02/16 06:59 06:59 06:59 Intake Total 3317 2597 Balance 3317 2597 Weight 31.8 kg 31.8 kg General appearance: PRESENT: no acute distress, well-developed, well-nourished Head exam: PRESENT: atraumatic, normocephalic Eye exam: PRESENT: conjunctiva pink, EOMI, PERRLA. ABSENT: scleral icterus Ear exam: PRESENT: normal external ear exam Mouth exam: PRESENT: moist, tongue midline Neck exam: PRESENT: full ROM. ABSENT: carotid bruit, JVD, lymphadenopathy, thyromegaly Respiratory exam: PRESENT: decreased breath sounds Cardiovascular exam: PRESENT: RRR. ABSENT: diastolic murmur, rubs, systolic murmur Pulses: PRESENT: normal dorsalis pedis pul, +2 pedal pulses bilateral Vascular exam: PRESENT: normal capillary refill GI/Abdominal exam: PRESENT: normal bowel sounds, soft. ABSENT: distended, guarding, mass, organolmegaly, rebound, tenderness Rectal exam: PRESENT: deferred Neurological exam: PRESENT: alert, awake, oriented to person, oriented to place , oriented to time, oriented to situation, CN II-XII grossly intact. ABSENT: motor sensory deficit Psychiatric exam: PRESENT: appropriate affect, normal mood. ABSENT: homicidal ideation, suicidal ideation Skin exam: PRESENT: dry, intact, warm. ABSENT: cyanosis, rash Results Laboratory Results: 09/29/16 04:17 09/29/16 04:17 09/23/16 04:15 NT-Pro-B Natriuret Pep 527 Impressions: Chest CT 09/22/16 00:00 IMPRESSION: End-stage appearance of obstructive lung disease with thin-walled cavities in the bilateral upper lobes. Cavitary lesion in the superior segment left lower lobe is similar compared to studies pre dating 07/23/2016. Chest X-Ray 09/27/16 06:00 IMPRESSION: Stable chest. Assessment & Plan - Diagnosis (1) COPD exacerbation Is this a current diagnosis for this admission?: YesPlan: Continues to current medications (2) Respiratory distress Is this a current diagnosis for this admission?: YesPlan: Currently stable (3) Bronchial pneumonia Is this a current diagnosis for this admission?: YesPlan: Continues to IV antibiotic we will hold the tobramycin's while the patient's does not like it (4) Hypertension Qualifiers: Hypertension type: essential hypertension Qualified Code(s): I10 - Essential (primary) hypertension Is this a current diagnosis for this admission?: YesPlan: Currently all stable (5) Osteoarthritis Qualifiers: Osteoarthritis location: unspecified site Osteoarthritis type: unspecified Qualified Code(s): M19.90 - Unspecified osteoarthritis, unspecified site Is this a current diagnosis for this admission?: YesPlan: Stable (6) Congestive heart failure Qualifiers: Congestive heart failure type: diastolic Congestive heart failure chronicity: chronic Qualified Code(s): I50.32 - Chronic diastolic ( congestive) heart failure Is this a current diagnosis for this admission?: YesPlan: Currently stable (7) Pulmonary nodule Is this a current diagnosis for this admission?: Yes - Time Time Spent with patient: 15-24 minutes Medications reviewed and adjusted accordingly: Yes Anticipated discharge: SNF Within: Other - Inpatient Certification Medical Necessity: Significant Comorbidiites Make Outpatient Treatment Too Risky , Need Close Monitoring Due to Risk of Patient Decompensation, Need for IV Antibiotics 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
--- NOTE | 2016-10-01 12:36 | RADIOLOGY REPORT (SQ) ---
EXAM DESCRIPTION: CHEST PA/LAT COMPLETED DATE/TIME: 10/01/2016 10:37 am REASON FOR STUDY: copd COMPARISON: CT chest 07/23/2016, 09/22/2016 Chest films 12/31/2014, 04/28/2016, 09/21/2016, 09/27/2016 EXAM PARAMETERS: NUMBER OF VIEWS: two views TECHNIQUE: Digital Frontal and Lateral radiographic views of the chest acquired. RADIATION DOSE: NA LIMITATIONS: none FINDINGS: LUNGS AND PLEURA: End-stage appearance of obstructive lung disease with bronchiectasis, sc arring and hyperinflation. Upper lobe bilateral volume loss and scarring. A thick-walled cavity with air-fluid level seen in the medial left lower lobe on CT 09/22/2016 is diff icult to visualize by plain film. No acute infiltrates. No pleural effusion. No pneumothorax. MEDIASTINUM AND HILAR STRUCTURES: No masses or contour abnormalities. HEART AND VASCULAR STRUCTURES: Heart normal size. No evidence for failure. BONES: No acute findings. HARDWARE: Peripherally calcified bilateral breast implants OTHER: No other significant finding. IMPRESSION: Obstructive lung disease with bronchiectasis and scarring in the bilateral upper lobes. By plain film, this is stable compared to 09/27/2016 TECHNICAL DOCUMENTATION: JOB ID: [id number] [employer]- All Rights Reserved
--- NOTE | 2016-10-01 13:19 | PDOC PROGRESS REPORT ---
Subjective Progress Note for:: 10/01/16 Subjective:: somewhat more lethargic Physical Exam Vital Signs: Temp Pulse Resp BP Pulse Ox 97.7 F 109 H 21 H 137/71 H 97 10/01/16 11:37 10/01/16 11:37 10/01/16 12:01 10/01/16 11:37 10/01/16 12:01 Pulse Oximeter Continuous Start: 09/29/16 09: 14 Freq: RTQ4 Status: Active Document 10/01/16 12:01 TPO (Rec: 10/01/16 12:35 TPO [email or web address]) Pulse Oximetry Assessment Oxygen Saturation (92-100) 97 Oxygen Delivery Method Bi-pap Fraction of Inspired Oxygen (FIO2) 28 Equipment Usage Equipment in Use Continuous SpO2 Machine # N-6 Intake & Output 09/30/16 10/01/16 10/02/16 06:59 06:59 06:59 Intake Total 3317 2597 280 Output Total 600 Balance 3317 2597 -320 Weight 31.8 kg 31.8 kg General appearance: PRESENT: no acute distress, cooperative, disheveled, thin, well-developed Head exam: PRESENT: atraumatic, normocephalic Eye exam: PRESENT: conjunctiva pale, EOMI Mouth exam: PRESENT: dry mucosa, neck supple, tongue midline Respiratory exam: PRESENT: decreased breath sounds, prolonged expiratory phas, rhonchi, symmetrical Cardiovascular exam: PRESENT: RRR, +S1, +S2 Pulses: PRESENT: normal radial pulses GI/Abdominal exam: PRESENT: normal bowel sounds, soft. ABSENT: distended, guarding, mass, organolmegaly, rebound, tenderness Rectal exam: PRESENT: deferred Musculoskeletal exam: PRESENT: normal inspection Neurological exam: PRESENT: awake Psychiatric exam: PRESENT: normal mood Skin exam: PRESENT: dry, warm Results Laboratory Results: 09/29/16 04:17 09/29/16 04:17 09/23/16 04:15 NT-Pro-B Natriuret Pep 527 Impressions: Chest CT 09/22/16 00:00 IMPRESSION: End-stage appearance of obstructive lung disease with thin-walled cavities in the bilateral upper lobes. Cavitary lesion in the superior segment left lower lobe is similar compared to studies pre dating 07/23/2016. Chest X-Ray 10/01/16 00:00 IMPRESSION: Obstructive lung disease with bronchiectasis and scarring in the bilateral upper lobes. By plain film, this is stable compared to 09/27/2016 Assessment & Plan - Diagnosis (1) Respiratory failure with hypoxia and hypercapnia Qualifiers: Chronicity: chronic Qualified Code(s): J96.11 - Chronic respiratory failure with hypoxia; J96.12 - Chronic respiratory failure with hypercapnia Is this a current diagnosis for this admission?: YesPlan: Patient stable;PCO2 69, PO2 67, pH 7.42 elevated bicarb on chemistry (2) Bronchial pneumonia Is this a current diagnosis for this admission?: YesPlan: WBC remains elevated CXR essentially unchanged (3) Breast cancer Qualifiers: Laterality: bilateral Is this a current diagnosis for this admission?: Yes (4) Bronchiectasis Is this a current diagnosis for this admission?: Yes
[2016-10-01] MEDS: MONTELUKAST SODIUM 10 MG TABLET PO SCH (22:29)
[2016-10-02] MEDS: NYSTATIN/DEXAMETH/DIPHEN SUSP 120 ML PO SCH ×4 (00:01→17:58)
[2016-10-02 05:43] LABS: ABSOLUTE EOSINOPHILS # (AUTO) 0.1 10^3/uL (0.0-0.6); ABSOLUTE LYMPHOCYTES (AUTO) 2.2 10^3/uL (0.5-4.7); ABSOLUTE MONOCYTES (AUTO) 1.2 10^3/uL (0.1-1.4); ABSOLUTE NEUT (AUTO) 11.1 10^3/uL (1.7-8.2); BASOPHILS % (AUTO) 0.2 % (0-2); EOSINOPHILS % (AUTO) 0.7 % (0-6); HEMATOCRIT 34.3 % (36.0-47.0); HEMOGLOBIN 10.7 g/dL (12.0-15.5); HGB HCT DIFFERENCE -2.2; LYMPHOCYTES % (AUTO) 14.8 % (13-45); MEAN CORPUSCULAR HEMOGLOBIN 25.5 pg (27.0-33.4); MEAN CORPUSCULAR HGB CONC 31.3 g/dL (32.0-36.0); MEAN CORPUSCULAR VOLUME 82 fl (80-97); MONOCYTES % (AUTO) 8.2 % (3-13); RED CELL DISTRIBUTION WIDTH 13.1 % (11.5-14.0); SEGMENTED NEUTROPHILS % (AUTO) 76.1 % (42-78); WHITE BLOOD COUNT 14.6 10^3/uL (4.0-10.5)
[2016-10-02 06:10] LABS: BLOOD UREA NITROGEN 13 mg/dL (7-20); CALCIUM 10.3 mg/dL (8.4-10.2); CHLORIDE 86 mmol/L (98-107); CREATININE RESULT 0.51 mg/dL (0.52-1.25); GLUCOSE 77 mg/dL (75-110); POTASSIUM 4.9 mmol/L (3.6-5.0); SODIUM 134.9 mmol/L (137-145)
[2016-10-02 06:27] LABS: ANION GAP 7 (5-19)
[2016-10-02 06:32] LABS: CARBON DIOXIDE 42 mmol/L (22-30)
[2016-10-02] MEDS: DILTIAZEM HCL 60 MG TABLET PO SCH ×3 (06:34→21:25)
[2016-10-02] MEDS: BUSPIRONE HCL 10 MG TABLET PO SCH ×3 (06:34→21:25)
[2016-10-02] MEDS: [UNRECOGNIZED DRUG - OTHER] PO SCH (06:35)
[2016-10-02] MEDS: TOBRAMYCIN SULFATE NEB 40 MG/ML 30 ML NEB SCH ×2 (08:39→20:17)
[2016-10-02] MEDS: IPRATROPIUM/ALBUTEROL 0.5-2.5 MG/3 ML AMPUL NEB PRN ×3 (08:39→20:18)
[2016-10-02] MEDS: CALCIUM CARBONATE 500 MG TAB.CHEW PO SCH ×4 (08:39→21:25)
[2016-10-02] MEDS: FLUTICASONE/SALMETEROL DISKUS 500-50 MCG/DOSE IH SCH ×2 (10:41→21:26)
[2016-10-02] MEDS: TIOTROPIUM BROMIDE DPI 5 CAP/KIT (18 MCG/CAP) IH SCH (10:41)
[2016-10-02] MEDS: ROFLUMILAST 500 MCG TABLET PO SCH (10:44)
[2016-10-02] MEDS: LISINOPRIL 10 MG TABLET PO SCH (10:44)
[2016-10-02] MEDS: CETIRIZINE 10 MG TABLET PO SCH (10:44)
[2016-10-02] MEDS: PREDNISONE 10 MG TABLET PO SCH (10:44)
[2016-10-02] MEDS: FAMOTIDINE 20 MG TABLET PO SCH (10:44)
[2016-10-02] MEDS: CEFEPIME HCL 1 GM in DEXTROSE 5%-WATER 50 ML IV SCH ×2 (11:42→21:26)
--- NOTE | 2016-10-02 12:04 | PDOC PROGRESS REPORT ---
Subjective Progress Note for:: 10/02/16 Subjective:: Patient is currently doing fair. Patient's denied any chest pain denied any nausea no vomiting.Patient's chemistry all stable patient's white count is all stable. Patient's denied any fever Physical Exam Vital Signs: Temp Pulse Resp BP Pulse Ox 97.6 F 101 H 24 H 133/62 H 92 10/02/16 08:00 10/02/16 08:24 10/02/16 08:24 10/02/16 08:24 10/02/16 08:24 Pulse Oximeter Continuous Start: 09/29/16 09: 14 Freq: RTQ4 Status: Active Document 10/02/16 08:00 TPO (Rec: 10/02/16 09:11 TPO [email or web address]) Pulse Oximetry Assessment Oxygen Saturation (92-100) 97 Oxygen Flow Rate (L/min) 2.5 Oxygen Delivery Method Nasal Cannula Fraction of Inspired Oxygen (FIO2) 30 Equipment Usage Equipment in Use Continuous SpO2 Machine # N-6 Intake & Output 10/01/16 10/02/16 10/03/16 06:59 06:59 06:59 Intake Total 2597 960 Output Total 600 Balance 2597 360 Weight 31.8 kg 31.8 kg General appearance: PRESENT: no acute distress, well-developed, well-nourished Head exam: PRESENT: atraumatic, normocephalic Eye exam: PRESENT: conjunctiva pink, EOMI, PERRLA. ABSENT: scleral icterus Ear exam: PRESENT: normal external ear exam Mouth exam: PRESENT: moist, tongue midline Neck exam: PRESENT: full ROM. ABSENT: carotid bruit, JVD, lymphadenopathy, thyromegaly Respiratory exam: PRESENT: clear to auscultation valerie Cardiovascular exam: PRESENT: RRR. ABSENT: diastolic murmur, rubs, systolic murmur Pulses: PRESENT: normal dorsalis pedis pul, +2 pedal pulses bilateral Vascular exam: PRESENT: normal capillary refill GI/Abdominal exam: PRESENT: normal bowel sounds, soft. ABSENT: distended, guarding, mass, organolmegaly, rebound, tenderness Rectal exam: PRESENT: deferred Neurological exam: PRESENT: alert, awake, oriented to person, oriented to place , oriented to time, oriented to situation, CN II-XII grossly intact. ABSENT: motor sensory deficit Psychiatric exam: PRESENT: appropriate affect, normal mood. ABSENT: homicidal ideation, suicidal ideation Skin exam: PRESENT: dry, intact, warm. ABSENT: cyanosis, rash Results Laboratory Results: 10/02/16 05:01 10/02/16 05:01 10/02/16 10/02/16 05:01 05:01 WBC 14.6 H RBC 4.20 Hgb 10.7 L Hct 34.3 L MCV 82 MCH 25.5 L MCHC 31.3 L RDW 13.1 Plt Count 413 Seg Neutrophils % 76.1 Lymphocytes % 14.8 Monocytes % 8.2 Eosinophils % 0.7 Basophils % 0.2 Absolute Neutrophils 11.1 H Absolute Lymphocytes 2.2 Absolute Monocytes 1.2 Absolute Eosinophils 0.1 Absolute Basophils 0.0 Sodium 134.9 L Potassium 4.9 Chloride 86 L Carbon Dioxide 42 H* Anion Gap 7 BUN 13 Creatinine 0.51 L Est GFR ( Amer) > 60 Est GFR (Non-Af Amer) > 60 Glucose 77 Calcium 10.3 H 09/23/16 04:15 NT-Pro-B Natriuret Pep 527 Impressions: Chest CT 09/22/16 00:00 IMPRESSION: End-stage appearance of obstructive lung disease with thin-walled cavities in the bilateral upper lobes. Cavitary lesion in the superior segment left lower lobe is similar compared to studies pre dating 07/23/2016. Chest X-Ray 10/01/16 00:00 IMPRESSION: Obstructive lung disease with bronchiectasis and scarring in the bilateral upper lobes. By plain film, this is stable compared to 09/27/2016 Assessment & Plan - Diagnosis (1) COPD exacerbation Is this a current diagnosis for this admission?: YesPlan: Continues to current medications (2) Respiratory distress Is this a current diagnosis for this admission?: YesPlan: Currently stable (3) Bronchial pneumonia Is this a current diagnosis for this admission?: YesPlan: Continues to IV antibiotic we will hold the tobramycin's while the patient's does not like it (4) Hypertension Qualifiers: Hypertension type: essential hypertension Qualified Code(s): I10 - Essential (primary) hypertension Is this a current diagnosis for this admission?: YesPlan: Currently all stable (5) Osteoarthritis Qualifiers: Osteoarthritis location: unspecified site Osteoarthritis type: unspecified Qualified Code(s): M19.90 - Unspecified osteoarthritis, unspecified site Is this a current diagnosis for this admission?: YesPlan: Stable (6) Congestive heart failure Qualifiers: Congestive heart failure type: diastolic Congestive heart failure chronicity: chronic Qualified Code(s): I50.32 - Chronic diastolic ( congestive) heart failure Is this a current diagnosis for this admission?: YesPlan: Currently stable (7) Pulmonary nodule Is this a current diagnosis for this admission?: YesPlan: The CT scan from March nothing change - Time Time Spent with patient: 15-24 minutes Medications reviewed and adjusted accordingly: Yes Anticipated discharge: SNF Within: within 24 hours - Inpatient Certification Medical Necessity: Need Close Monitoring Due to Risk of Patient Decompensation, Need for IV Antibiotics 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 antibiotic and patients probably discharge to the nursing homesFor close monitor
--- NOTE | 2016-10-02 16:52 | PDOC PROGRESS REPORT ---
Subjective Progress Note for:: 10/02/16 Subjective:: I had a good night sleep last night Physical Exam Vital Signs: Temp Pulse Resp BP Pulse Ox 97.9 F 92 19 132/68 H 97 10/02/16 16:10 10/02/16 16:10 10/02/16 16:10 10/02/16 16:10 10/02/16 16:16 Pulse Oximeter Continuous Start: 09/29/16 09: 14 Freq: RTQ4 Status: Active Document 10/02/16 16:16 TPO (Rec: 10/02/16 16:17 TPO [email or web address]) Pulse Oximetry Assessment Oxygen Saturation (92-100) 97 Oxygen Flow Rate (L/min) 2.5 Oxygen Delivery Method Nasal Cannula Fraction of Inspired Oxygen (FIO2) 30 Equipment Usage Equipment in Use Continuous SpO2 Machine # N-6 Additional RT Notes Other pt. has been wearing on and off all day Intake & Output 10/01/16 10/02/16 10/03/16 06:59 06:59 06:59 Intake Total 2597 960 358 Output Total 600 Balance 2597 360 358 Weight 31.8 kg 31.8 kg General appearance: PRESENT: no acute distress, cooperative, disheveled, thin, well-developed Head exam: PRESENT: atraumatic, normocephalic Eye exam: PRESENT: conjunctiva pale, EOMI Mouth exam: PRESENT: dry mucosa, neck supple, tongue midline Neck exam: ABSENT: carotid bruit, JVD, lymphadenopathy, thyromegaly Respiratory exam: PRESENT: decreased breath sounds, prolonged expiratory phas, rhonchi, symmetrical, unlabored, wheezes Cardiovascular exam: PRESENT: RRR, +S1, +S2 Pulses: PRESENT: normal radial pulses GI/Abdominal exam: PRESENT: normal bowel sounds, soft. ABSENT: distended, guarding, mass, organolmegaly, rebound, tenderness Rectal exam: PRESENT: deferred Musculoskeletal exam: PRESENT: normal inspection Neurological exam: PRESENT: alert, awake Psychiatric exam: PRESENT: normal mood Skin exam: PRESENT: dry, warm Results Laboratory Results: 10/02/16 05:01 10/02/16 05:01 10/02/16 10/02/16 05:01 05:01 WBC 14.6 H RBC 4.20 Hgb 10.7 L Hct 34.3 L MCV 82 MCH 25.5 L MCHC 31.3 L RDW 13.1 Plt Count 413 Seg Neutrophils % 76.1 Lymphocytes % 14.8 Monocytes % 8.2 Eosinophils % 0.7 Basophils % 0.2 Absolute Neutrophils 11.1 H Absolute Lymphocytes 2.2 Absolute Monocytes 1.2 Absolute Eosinophils 0.1 Absolute Basophils 0.0 Sodium 134.9 L Potassium 4.9 Chloride 86 L Carbon Dioxide 42 H* Anion Gap 7 BUN 13 Creatinine 0.51 L Est GFR ( Amer) > 60 Est GFR (Non-Af Amer) > 60 Glucose 77 Calcium 10.3 H 09/23/16 04:15 NT-Pro-B Natriuret Pep 527 Impressions: Chest CT 09/22/16 00:00 IMPRESSION: End-stage appearance of obstructive lung disease with thin-walled cavities in the bilateral upper lobes. Cavitary lesion in the superior segment left lower lobe is similar compared to studies pre dating 07/23/2016. Chest X-Ray 10/01/16 00:00 IMPRESSION: Obstructive lung disease with bronchiectasis and scarring in the bilateral upper lobes. By plain film, this is stable compared to 09/27/2016 Assessment & Plan - Diagnosis (1) Respiratory failure with hypoxia and hypercapnia Qualifiers: Chronicity: chronic Qualified Code(s): J96.11 - Chronic respiratory failure with hypoxia; J96.12 - Chronic respiratory failure with hypercapnia Is this a current diagnosis for this admission?: YesPlan: Patient close to baseline (2) Bronchial pneumonia Is this a current diagnosis for this admission?: YesPlan: CXR essentially unchanged (3) Breast cancer Qualifiers: Laterality: bilateral Is this a current diagnosis for this admission?: Yes (4) Bronchiectasis Is this a current diagnosis for this admission?: Yes
[2016-10-02] MEDS: MONTELUKAST SODIUM 10 MG TABLET PO SCH (21:25)
[2016-10-03] MEDS: NYSTATIN/DEXAMETH/DIPHEN SUSP 120 ML PO SCH ×4 (00:33→18:20)
[2016-10-03] MEDS: [UNRECOGNIZED DRUG - OTHER] PO SCH (05:45)
[2016-10-03] MEDS: DILTIAZEM HCL 60 MG TABLET PO SCH ×3 (05:45→20:50)
[2016-10-03] MEDS: BUSPIRONE HCL 10 MG TABLET PO SCH ×3 (05:45→20:50)
[2016-10-03 06:42] LABS: BLOOD UREA NITROGEN 17 mg/dL (7-20); CALCIUM 10.4 mg/dL (8.4-10.2); CHLORIDE 83 mmol/L (98-107); CREATININE RESULT 0.57 mg/dL (0.52-1.25); GLUCOSE 98 mg/dL (75-110); POTASSIUM 5.3 mmol/L (3.6-5.0); SODIUM 130.5 mmol/L (137-145)
[2016-10-03 06:48] LABS: ANION GAP 8 (5-19)
[2016-10-03 06:57] LABS: CARBON DIOXIDE 40 mmol/L (22-30)
[2016-10-03] MEDS: CALCIUM CARBONATE 500 MG TAB.CHEW PO SCH ×4 (07:56→20:50)
[2016-10-03] MEDS: IPRATROPIUM/ALBUTEROL 0.5-2.5 MG/3 ML AMPUL NEB PRN ×3 (08:24→20:24)
[2016-10-03] MEDS: TOBRAMYCIN SULFATE NEB 40 MG/ML 30 ML NEB SCH (08:24)
[2016-10-03] MEDS: LISINOPRIL 10 MG TABLET PO SCH (10:52)
[2016-10-03] MEDS: FAMOTIDINE 20 MG TABLET PO SCH (10:54)
[2016-10-03] MEDS: PREDNISONE 10 MG TABLET PO SCH (10:55)
[2016-10-03] MEDS: CETIRIZINE 10 MG TABLET PO SCH (10:55)
[2016-10-03] MEDS: TIOTROPIUM BROMIDE DPI 5 CAP/KIT (18 MCG/CAP) IH SCH (10:55)
[2016-10-03] MEDS: ROFLUMILAST 500 MCG TABLET PO SCH (10:56)
[2016-10-03] MEDS: FLUTICASONE/SALMETEROL DISKUS 500-50 MCG/DOSE IH SCH ×2 (10:59→20:51)
[2016-10-03] MEDS ORDERED: PREDNISONE 10 MG TABLET PO SCH (12:55)
--- NOTE | 2016-10-03 13:56 | PDOC PROGRESS REPORT ---
Subjective Progress Note for:: 10/03/16 Subjective:: There is a 62-year-old female currently doing fair still on and off short of breath still requiring BiPAP. Other than that no other events happen still very anxious Physical Exam Vital Signs: Temp Pulse Resp BP Pulse Ox 98.2 F 110 H 22 H 135/67 H 94 10/03/16 12:05 10/03/16 12:05 10/03/16 12:05 10/03/16 12:05 10/03/16 12:05 Pulse Oximeter Continuous Start: 09/29/16 09: 14 Freq: RTQ4 Status: Active Document 10/03/16 12:00 JDR (Rec: 10/03/16 12:47 JDR [email or web address]) Pulse Oximetry Assessment Oxygen Saturation (92-100) 96 Oxygen Flow Rate (L/min) 3 Oxygen Delivery Method Nasal Cannula Equipment Usage Equipment in Use Continuous SpO2 Machine # 6 Intake & Output 10/02/16 10/03/16 10/04/16 06:59 06:59 06:59 Intake Total 960 923 460 Output Total 600 Balance 360 923 460 Weight 31.8 kg 30.4 kg General appearance: PRESENT: no acute distress Eye exam: PRESENT: PERRLA Mouth exam: PRESENT: neck supple Respiratory exam: PRESENT: decreased breath sounds Cardiovascular exam: PRESENT: +S1, +S2 GI/Abdominal exam: PRESENT: normal bowel sounds, soft Extremities exam: ABSENT: pedal edema Neurological exam: PRESENT: alert, awake, oriented to person, oriented to place - The interview order the CT scan Psychiatric exam: PRESENT: anxious Skin exam: PRESENT: dry Results Laboratory Results: 10/02/16 05:01 10/03/16 05:49 10/03/16 05:49 Sodium 130.5 L Potassium 5.3 H Chloride 83 L Carbon Dioxide 40 H* Anion Gap 8 BUN 17 Creatinine 0.57 Est GFR ( Amer) > 60 Est GFR (Non-Af Amer) > 60 Glucose 98 Calcium 10.4 H 09/23/16 04:15 NT-Pro-B Natriuret Pep 527 Impressions: Chest CT 09/22/16 00:00 IMPRESSION: End-stage appearance of obstructive lung disease with thin-walled cavities in the bilateral upper lobes. Cavitary lesion in the superior segment left lower lobe is similar compared to studies pre dating 07/23/2016. Chest X-Ray 10/01/16 00:00 IMPRESSION: Obstructive lung disease with bronchiectasis and scarring in the bilateral upper lobes. By plain film, this is stable compared to 09/27/2016 Assessment & Plan - Diagnosis (1) COPD exacerbation Is this a current diagnosis for this admission?: YesPlan: Continues to current medications (2) Respiratory distress Is this a current diagnosis for this admission?: YesPlan: Still the same (3) Bronchial pneumonia Is this a current diagnosis for this admission?: YesPlan: Start the patient on the p.o. antibiotic (4) Hypertension Qualifiers: Hypertension type: essential hypertension Qualified Code(s): I10 - Essential (primary) hypertension Is this a current diagnosis for this admission?: YesPlan: Currently all stable (5) Osteoarthritis Qualifiers: Osteoarthritis location: unspecified site Osteoarthritis type: unspecified Qualified Code(s): M19.90 - Unspecified osteoarthritis, unspecified site Is this a current diagnosis for this admission?: YesPlan: Stable (6) Congestive heart failure Qualifiers: Congestive heart failure type: diastolic Congestive heart failure chronicity: chronic Qualified Code(s): I50.32 - Chronic diastolic ( congestive) heart failure Is this a current diagnosis for this admission?: YesPlan: Currently stable (7) Pulmonary nodule Is this a current diagnosis for this admission?: Yes - Time Time Spent with patient: 15-24 minutes Medications reviewed and adjusted accordingly: Yes Anticipated discharge: SNF Within: Other - Inpatient Certification Medical Necessity: Need Close Monitoring Due to Risk of Patient Decompensation Post Hospital Care: D/C [employer] Documentation - Plan Summary Plan Summary: Very extensive discussions with the son and the sister and discussed with the pulmonary with the patient's and still COPD emphysema with a not a good prognosis patients to maintain the DNR/DNI and hopefully patient's discharge to the rehab Family of a concern about to going to the pulmonary rehab and discussed with the maintenance planner with the patient's family and the family not sure and the family wants will refer the patient to the pulmonary rehab nursing homes otherwise patient's go to the regular shelter here
[2016-10-03] MEDS ORDERED: SODIUM POLYSTYRENE SULFONATE 15 GM/60 ML PO ONE (14:00)
--- NOTE | 2016-10-03 15:04 | RADIOLOGY REPORT (SQ) ---
EXAM DESCRIPTION: CHEST PA/LAT COMPLETED DATE/TIME: 10/03/2016 1:51 pm REASON FOR STUDY: copd COMPARISON: CHEST FILMS 04/28/2016, 09/21/2016, 09/24/2016, 09/27/2016, 10/01/2016 EXAM PARAMETERS: NUMBER OF VIEWS: two views TECHNIQUE: Digital Frontal and Lateral radiographic views of the chest acquired. RADIATION DOSE: NA LIMITATIONS: none FINDINGS: LUNGS AND PLEURA: Obstructive lung disease, with bronchiectasis and scarring in the bilate ral upper lobes. This is similar compared to previous plain films. No pneumothorax. No pleural effusion. No dense consolidation worrisome for pneumonia. MEDIASTINUM AND HILAR STRUCTURES: No masses or contour abnormalities. HEART AND VASCULAR STRUCTURES: Heart normal size. No evidence for failure. BONES: No acute findings. HARDWARE: Calcified breast implants are present OTHER: No other significant finding. IMPRESSION: No change from 10/01/2016 and 09/27/2016 TECHNICAL DOCUMENTATION: JOB ID: [id number] [employer]- All Rights Reserved
[2016-10-03 16:26] LABS: ARTERIAL BLOOD BASE EXCESS 17.4 mmol/L
[2016-10-03] MEDS: SULFAMETHOXAZOLE/TRIMETHOPRIM 800-160 MG TABLET PO SCH (20:50)
[2016-10-03] MEDS: MONTELUKAST SODIUM 10 MG TABLET PO SCH (20:50)
[2016-10-04] MEDS: NYSTATIN/DEXAMETH/DIPHEN SUSP 120 ML PO SCH ×4 (00:46→18:46)
[2016-10-04] MEDS: IPRATROPIUM/ALBUTEROL 0.5-2.5 MG/3 ML AMPUL NEB PRN ×3 (02:22→23:14)
[2016-10-04 05:23] LABS: ABSOLUTE EOSINOPHILS # (AUTO) 0.1 10^3/uL (0.0-0.6); ABSOLUTE MONOCYTES (AUTO) 1.3 10^3/uL (0.1-1.4); ABSOLUTE NEUT (AUTO) 15.7 10^3/uL (1.7-8.2); BASOPHILS % (AUTO) 0.1 % (0-2); EOSINOPHILS % (AUTO) 0.5 % (0-6); HEMATOCRIT 31.3 % (36.0-47.0); HEMOGLOBIN 9.8 g/dL (12.0-15.5); HGB HCT DIFFERENCE -1.9; LYMPHOCYTES % (AUTO) 10.3 % (13-45); MEAN CORPUSCULAR HEMOGLOBIN 25.6 pg (27.0-33.4); MEAN CORPUSCULAR HGB CONC 31.3 g/dL (32.0-36.0); MEAN CORPUSCULAR VOLUME 82 fl (80-97); MONOCYTES % (AUTO) 6.7 % (3-13); RED BLOOD COUNT 3.83 10^6/uL (3.72-5.28); RED CELL DISTRIBUTION WIDTH 13.2 % (11.5-14.0); SEGMENTED NEUTROPHILS % (AUTO) 82.4 % (42-78); WHITE BLOOD COUNT 19.1 10^3/uL (4.0-10.5)
[2016-10-04] MEDS: BUSPIRONE HCL 10 MG TABLET PO SCH ×3 (05:34→22:28)
[2016-10-04] MEDS: DILTIAZEM HCL 60 MG TABLET PO SCH ×3 (05:34→22:28)
[2016-10-04] MEDS: [UNRECOGNIZED DRUG - OTHER] PO SCH (05:34)
[2016-10-04 05:36] LABS: BLOOD UREA NITROGEN 14 mg/dL (7-20); CALCIUM 9.7 mg/dL (8.4-10.2); CHLORIDE 83 mmol/L (98-107); CREATININE RESULT 0.63 mg/dL (0.52-1.25); GLUCOSE 75 mg/dL (75-110); MAGNESIUM 1.9 mg/dL (1.6-2.3)
[2016-10-04 05:51] LABS: SODIUM 129.2 mmol/L (137-145)
[2016-10-04 05:55] LABS: POTASSIUM 4.4 mmol/L (3.6-5.0)
[2016-10-04 06:05] LABS: ANION GAP 5 (5-19)
[2016-10-04 06:07] LABS: CARBON DIOXIDE 41 mmol/L (22-30)
[2016-10-04 06:23] LABS: ARTERIAL BLOOD BASE EXCESS 14.9 mmol/L; ARTERIAL BLOOD O2 SATURATION 94.5 % (94-98)
[2016-10-04] MEDS: CALCIUM CARBONATE 500 MG TAB.CHEW PO SCH ×4 (08:01→19:53)
[2016-10-04] MEDS ORDERED: NORMAL SALINE 1000 ML 1,000 ML IV PRN (08:42)
[2016-10-04] MEDS ORDERED: CEFEPIME 1 GM/D5W RTU 50 ML IV SCH (10:00)
[2016-10-04] MEDS ORDERED: GUAIFENESIN 600 MG TABLET.SA PO SCH (10:00)
[2016-10-04] MEDS: FLUCONAZOLE 100 MG TABLET PO SCH (10:20)
[2016-10-04] MEDS: TIOTROPIUM BROMIDE DPI 5 CAP/KIT (18 MCG/CAP) IH SCH (10:20)
[2016-10-04] MEDS: FLUTICASONE/SALMETEROL DISKUS 500-50 MCG/DOSE IH SCH ×2 (10:20→22:28)
[2016-10-04] MEDS: CETIRIZINE 10 MG TABLET PO SCH (10:21)
[2016-10-04] MEDS: PREDNISONE 5 MG TABLET PO SCH (10:21)
[2016-10-04] MEDS: FAMOTIDINE 20 MG TABLET PO SCH (10:21)
[2016-10-04] MEDS: SULFAMETHOXAZOLE/TRIMETHOPRIM 800-160 MG TABLET PO SCH ×2 (10:21→18:46)
[2016-10-04] MEDS: ROFLUMILAST 500 MCG TABLET PO SCH (10:21)
[2016-10-04] MEDS: CEFEPIME HCL 1 GM in DEXTROSE 5%-WATER 50 ML IV SCH ×2 (10:23→22:28)
[2016-10-04] MEDS ORDERED: GUAIFENESIN SYRP 200 MG/10 ML UDC PO ONE (11:00)
--- NOTE | 2016-10-04 14:46 | PDOC PROGRESS REPORT ---
Subjective Progress Note for:: 10/04/16 Subjective:: There is a 62-year-old female currently doing fair still on and off short of breath still requiring BiPAP. Other than that no other events happen still very anxious pt is c/o some diff swallowing nocp Physical Exam Vital Signs: Temp Pulse Resp BP Pulse Ox 98.3 F 100 24 H 127/61 H 100 10/04/16 11:54 10/04/16 11:54 10/04/16 11:54 10/04/16 11:54 10/04/16 12:00 Pulse Oximeter Continuous Start: 09/29/16 09: 14 Freq: RTQ4 Status: Active Document 10/04/16 12:00 JDR (Rec: 10/04/16 13:17 JDR [email or web address]) Pulse Oximetry Assessment Oxygen Saturation (92-100) 100 Oxygen Flow Rate (L/min) 3 Oxygen Delivery Method Nasal Cannula Equipment Usage Equipment in Use Continuous SpO2 Machine # 6 Intake & Output 10/03/16 10/04/16 10/05/16 06:59 06:59 06:59 Intake Total 923 940 Output Total 0 Balance 923 940 Weight 30.4 kg 30.9 kg General appearance: PRESENT: no acute distress Eye exam: PRESENT: PERRLA Mouth exam: PRESENT: neck supple Respiratory exam: PRESENT: decreased breath sounds Cardiovascular exam: PRESENT: +S1, +S2 GI/Abdominal exam: PRESENT: normal bowel sounds, soft Extremities exam: ABSENT: pedal edema Neurological exam: PRESENT: alert, awake, oriented to person, oriented to place , oriented to time, oriented to situation Results Laboratory Results: 10/04/16 04:32 10/04/16 04:32 10/03/16 10/04/16 10/04/16 16:15 04:32 04:32 WBC 19.1 H RBC 3.83 Hgb 9.8 L Hct 31.3 L MCV 82 MCH 25.6 L MCHC 31.3 L RDW 13.2 Plt Count 365 Seg Neutrophils % 82.4 H Lymphocytes % 10.3 L Monocytes % 6.7 Eosinophils % 0.5 Basophils % 0.1 Absolute Neutrophils 15.7 H Absolute Lymphocytes 2.0 Absolute Monocytes 1.3 Absolute Eosinophils 0.1 Absolute Basophils 0.0 Carbonic Acid 2.03 H HCO3/H2CO3 Ratio 22:1 ABG pH 7.44 ABG pCO2 67.6 H ABG pO2 82.2 ABG HCO3 44.7 H ABG O2 Saturation 96.0 ABG Base Excess 17.4 FiO2 3L Sodium 129.2 L Potassium 4.4 Chloride 83 L Carbon Dioxide 41 H* Anion Gap 5 BUN 14 Creatinine 0.63 Est GFR ( Amer) > 60 Est GFR (Non-Af Amer) > 60 Glucose 75 Calcium 9.7 Magnesium 1.9 10/04/16 06:00 WBC RBC Hgb Hct MCV MCH MCHC RDW Plt Count Seg Neutrophils % Lymphocytes % Monocytes % Eosinophils % Basophils % Absolute Neutrophils Absolute Lymphocytes Absolute Monocytes Absolute Eosinophils Absolute Basophils Carbonic Acid 2.03 H HCO3/H2CO3 Ratio 20:1 ABG pH 7.41 ABG pCO2 67.3 H ABG pO2 74.1 L ABG HCO3 42.1 H ABG O2 Saturation 94.5 ABG Base Excess 14.9 FiO2 3 LITERS Sodium Potassium Chloride Carbon Dioxide Anion Gap BUN Creatinine Est GFR ( Amer) Est GFR (Non-Af Amer) Glucose Calcium Magnesium 09/23/16 04:15 NT-Pro-B Natriuret Pep 527 Impressions: Chest CT 09/22/16 00:00 IMPRESSION: End-stage appearance of obstructive lung disease with thin-walled cavities in the bilateral upper lobes. Cavitary lesion in the superior segment left lower lobe is similar compared to studies pre dating 07/23/2016. Chest X-Ray 10/03/16 00:00 IMPRESSION: No change from 10/01/2016 and 09/27/2016 Assessment & Plan - Diagnosis (1) COPD exacerbation Is this a current diagnosis for this admission?: YesPlan: Continues to current medications (2) Respiratory distress Is this a current diagnosis for this admission?: YesPlan: Still the same (3) Bronchial pneumonia Is this a current diagnosis for this admission?: YesPlan: Start the patient on the p.o. antibiotic add iv cefepim (4) Hypertension Qualifiers: Hypertension type: essential hypertension Qualified Code(s): I10 - Essential (primary) hypertension Is this a current diagnosis for this admission?: YesPlan: Currently all stable (5) Osteoarthritis Qualifiers: Osteoarthritis location: unspecified site Osteoarthritis type: unspecified Qualified Code(s): M19.90 - Unspecified osteoarthritis, unspecified site Is this a current diagnosis for this admission?: YesPlan: Stable (6) Congestive heart failure Qualifiers: Congestive heart failure type: diastolic Congestive heart failure chronicity: chronic Qualified Code(s): I50.32 - Chronic diastolic ( congestive) heart failure Is this a current diagnosis for this admission?: Yes (7) Pulmonary nodule Is this a current diagnosis for this admission?: Yes - Time Time Spent with patient: 25-34 minutes Medications reviewed and adjusted accordingly: Yes Anticipated discharge: SNF - Inpatient Certification Medical Necessity: Significant Comorbidiites Make Outpatient Treatment Too Risky Post Hospital Care: D/C Saw Superintendent Documentation - d/w son about pt poor prognosis
[2016-10-04] MEDS: GUAIFENESIN SYRP 200 MG/10 ML UDC PO SCH (18:49)
[2016-10-04] MEDS: MONTELUKAST SODIUM 10 MG TABLET PO SCH (22:28)
[2016-10-05] MEDS: NYSTATIN/DEXAMETH/DIPHEN SUSP 120 ML PO SCH ×4 (01:37→18:47)
[2016-10-05 05:46] LABS: HEMATOCRIT 32.5 % (36.0-47.0); HEMOGLOBIN 10.3 g/dL (12.0-15.5); HGB HCT DIFFERENCE -1.6; MEAN CORPUSCULAR HEMOGLOBIN 25.5 pg (27.0-33.4); MEAN CORPUSCULAR HGB CONC 31.7 g/dL (32.0-36.0); MEAN CORPUSCULAR VOLUME 80 fl (80-97); RED BLOOD COUNT 4.04 10^6/uL (3.72-5.28); RED CELL DISTRIBUTION WIDTH 13.3 % (11.5-14.0); WHITE BLOOD COUNT 21.1 10^3/uL (4.0-10.5)
[2016-10-05 05:55] LABS: ANION GAP 8 (5-19); BLOOD UREA NITROGEN 13 mg/dL (7-20); CALCIUM 10.4 mg/dL (8.4-10.2); CARBON DIOXIDE 39 mmol/L (22-30); CHLORIDE 82 mmol/L (98-107); CREATININE RESULT 0.67 mg/dL (0.52-1.25); GLUCOSE 77 mg/dL (75-110); POTASSIUM 4.7 mmol/L (3.6-5.0); SODIUM 128.7 mmol/L (137-145)
[2016-10-05] MEDS: DILTIAZEM HCL 60 MG TABLET PO SCH ×3 (06:16→21:19)
[2016-10-05] MEDS: BUSPIRONE HCL 10 MG TABLET PO SCH ×3 (06:16→21:19)
[2016-10-05] MEDS: [UNRECOGNIZED DRUG - OTHER] PO SCH (06:16)
[2016-10-05 06:23] LABS: BASOPHILS % (MANUAL) 0 % (0-2); EOSINOPHILS % (MANUAL) 1 % (0-6); LYMPHOCYTES % (MANUAL) 5 % (13-45); TOTAL CELLS COUNTED 100
[2016-10-05] MEDS: GUAIFENESIN SYRP 200 MG/10 ML UDC PO SCH ×2 (06:23→18:47)
[2016-10-05 06:25] LABS: TOXIC GRANULATION 2+; TOXIC VACUOLATION PRESENT
[2016-10-05 06:26] LABS: HYPOCHROMASIA 1+; MICROCYTOSIS SLIGHT; POIKILOCYTOSIS 1+; STOMATOCYTES 1+
[2016-10-05] MEDS ORDERED: NORMAL SALINE 1000 ML 1,000 ML IV PRN (06:45)
[2016-10-05] MEDS: CALCIUM CARBONATE 500 MG TAB.CHEW PO SCH ×4 (08:47→21:19)
--- NOTE | 2016-10-05 09:46 | PDOC PROGRESS REPORT ---
Subjective Progress Note for:: 10/05/16 Subjective:: Patient is currently doing same. Patient's denied any chest pain. No fever still short of breath on and off Physical Exam Vital Signs: Temp Pulse Resp BP Pulse Ox 97.8 F 88 30 H 126/52 H 99 10/05/16 07:59 10/05/16 07:59 10/05/16 07:59 10/05/16 07:59 10/05/16 07:59 Pulse Oximeter Continuous Start: 09/29/16 09: 14 Freq: RTQ4 Status: Active Document 10/05/16 04:00 LRO (Rec: 10/05/16 04:06 LRO [email or web address]) Pulse Oximetry Assessment Oxygen Saturation (92-100) 96 Oxygen Delivery Method Bi-pap Fraction of Inspired Oxygen (FIO2) 28 Equipment Usage Equipment in Use Continuous SpO2 Machine # 6 Intake & Output 10/04/16 10/05/16 10/06/16 06:59 06:59 06:59 Intake Total 940 490 Output Total 0 Balance 940 490 Weight 30.9 kg 30.8 kg General appearance: PRESENT: no acute distress Eye exam: PRESENT: PERRLA Mouth exam: PRESENT: dry mucosa Respiratory exam: PRESENT: decreased breath sounds Cardiovascular exam: PRESENT: +S1 GI/Abdominal exam: PRESENT: normal bowel sounds, soft Extremities exam: ABSENT: pedal edema Neurological exam: PRESENT: alert, awake, oriented to person, oriented to place Psychiatric exam: PRESENT: anxious Results Laboratory Results: 10/05/16 04:40 10/05/16 04:40 10/05/16 10/05/16 04:40 04:40 WBC 21.1 H RBC 4.04 Hgb 10.3 L Hct 32.5 L MCV 80 MCH 25.5 L MCHC 31.7 L RDW 13.3 Plt Count 393 Seg Neutrophils % Not Reportable Lymphocytes % Not Reportable Monocytes % Not Reportable Eosinophils % Not Reportable Basophils % Not Reportable Absolute Neutrophils Not Reportable Absolute Lymphocytes Not Reportable Absolute Monocytes Not Reportable Absolute Eosinophils Not Reportable Absolute Basophils Not Reportable Sodium 128.7 L Potassium 4.7 Chloride 82 L Carbon Dioxide 39 H Anion Gap 8 BUN 13 Creatinine 0.67 Est GFR ( Amer) > 60 Est GFR (Non-Af Amer) > 60 Glucose 77 Calcium 10.4 H 09/23/16 04:15 NT-Pro-B Natriuret Pep 527 Impressions: Chest CT 09/22/16 00:00 IMPRESSION: End-stage appearance of obstructive lung disease with thin-walled cavities in the bilateral upper lobes. Cavitary lesion in the superior segment left lower lobe is similar compared to studies pre dating 07/23/2016. Chest X-Ray 10/03/16 00:00 IMPRESSION: No change from 10/01/2016 and 09/27/2016 Assessment & Plan - Diagnosis (1) COPD exacerbation Is this a current diagnosis for this admission?: YesPlan: Continues to current medications (2) Respiratory distress Is this a current diagnosis for this admission?: YesPlan: Still the same (3) Bronchial pneumonia Is this a current diagnosis for this admission?: YesPlan: Patient's white count is still elevated continues to IV antibiotic (4) Hypertension Qualifiers: Hypertension type: essential hypertension Qualified Code(s): I10 - Essential (primary) hypertension Is this a current diagnosis for this admission?: YesPlan: Currently all stable (5) Osteoarthritis Qualifiers: Osteoarthritis location: unspecified site Osteoarthritis type: unspecified Qualified Code(s): M19.90 - Unspecified osteoarthritis, unspecified site Is this a current diagnosis for this admission?: YesPlan: Stable (6) Congestive heart failure Qualifiers: Congestive heart failure type: diastolic Congestive heart failure chronicity: chronic Qualified Code(s): I50.32 - Chronic diastolic ( congestive) heart failure Is this a current diagnosis for this admission?: Yes (7) Pulmonary nodule Is this a current diagnosis for this admission?: Yes - Time Time Spent with patient: 15-24 minutes Medications reviewed and adjusted accordingly: Yes Anticipated discharge: SNF Within: Other - Inpatient Certification Medical Necessity: Need Close Monitoring Due to Risk of Patient Decompensation, Need for IV Antibiotics Post Hospital Care: D/C [employer] Documentation - Plan Summary Plan Summary: Very extensive discussions with the patient and the son about patient's current conditions and discussed with the pulmonary suggest most likely a comfort care and discussed with the patient and the son with end-stage COPD with the worsening the all the recommendations and patient's and the son noted poor prognosis and will waiting for the pulmonary rehab to transfer most likely comfort care
[2016-10-05] MEDS: CETIRIZINE 10 MG TABLET PO SCH (10:24)
[2016-10-05] MEDS: PREDNISONE 5 MG TABLET PO SCH (10:24)
[2016-10-05] MEDS: FAMOTIDINE 20 MG TABLET PO SCH (10:24)
[2016-10-05] MEDS: FLUCONAZOLE 100 MG TABLET PO SCH (10:24)
[2016-10-05] MEDS: ROFLUMILAST 500 MCG TABLET PO SCH (10:24)
[2016-10-05] MEDS: SULFAMETHOXAZOLE/TRIMETHOPRIM 800-160 MG TABLET PO SCH ×2 (10:24→18:47)
[2016-10-05] MEDS: CEFEPIME HCL 1 GM in DEXTROSE 5%-WATER 50 ML IV SCH ×2 (10:24→21:20)
[2016-10-05] MEDS: FLUTICASONE/SALMETEROL DISKUS 500-50 MCG/DOSE IH SCH ×2 (10:25→21:19)
[2016-10-05] MEDS: TIOTROPIUM BROMIDE DPI 5 CAP/KIT (18 MCG/CAP) IH SCH (14:04)
[2016-10-05] MEDS: IPRATROPIUM/ALBUTEROL 0.5-2.5 MG/3 ML AMPUL NEB PRN ×2 (14:25→20:14)
[2016-10-05] MEDS: TOBRAMYCIN SULFATE NEB 40 MG/ML 30 ML NEB SCH (20:15)
[2016-10-05] MEDS: MONTELUKAST SODIUM 10 MG TABLET PO SCH (21:19)
[2016-10-06] MEDS: NYSTATIN/DEXAMETH/DIPHEN SUSP 120 ML PO SCH ×4 (00:10→17:55)
[2016-10-06 05:09] LABS: ANION GAP 8 (5-19); BLOOD UREA NITROGEN 15 mg/dL (7-20); CALCIUM 10.6 mg/dL (8.4-10.2); CARBON DIOXIDE 38 mmol/L (22-30); CHLORIDE 82 mmol/L (98-107); GLUCOSE 75 mg/dL (75-110); POTASSIUM 4.4 mmol/L (3.6-5.0); SODIUM 127.7 mmol/L (137-145)
[2016-10-06] MEDS: [UNRECOGNIZED DRUG - OTHER] PO SCH (05:56)
[2016-10-06] MEDS: BUSPIRONE HCL 10 MG TABLET PO SCH ×3 (05:56→21:18)
[2016-10-06] MEDS: DILTIAZEM HCL 60 MG TABLET PO SCH ×3 (05:56→21:18)
[2016-10-06] MEDS: GUAIFENESIN SYRP 200 MG/10 ML UDC PO SCH ×2 (05:58→17:48)
[2016-10-06] MEDS: CALCIUM CARBONATE 500 MG TAB.CHEW PO SCH ×4 (07:51→21:18)
--- NOTE | 2016-10-06 08:20 | PDOC PROGRESS REPORT ---
Subjective Progress Note for:: 10/06/16 Subjective:: Patient is currently doing Same Patient's sodium is low Patient other than that denied any chest pain denied any shortness of the breath Physical Exam Vital Signs: Temp Pulse Resp BP Pulse Ox 97.7 F 88 20 140/52 H 93 10/06/16 08:00 10/06/16 08:00 10/06/16 08:00 10/06/16 08:00 10/06/16 08:00 Pulse Oximeter Continuous Start: 09/29/16 09: 14 Freq: RTQ4 Status: Active Document 10/06/16 04:00 LRO (Rec: 10/06/16 04:44 LRO [email or web address]) Pulse Oximetry Assessment Oxygen Saturation (92-100) 95 Equipment Usage Equipment in Use Continuous Pulse Oximeter 24 Hour Charge Charge Now Continuous SpO2 Machine # 6 Intake & Output 10/05/16 10/06/16 10/07/16 06:59 06:59 06:59 Intake Total 490 670 Balance 490 670 Weight 30.8 kg 31.2 kg General appearance: PRESENT: no acute distress, well-developed, well-nourished Head exam: PRESENT: atraumatic, normocephalic Eye exam: PRESENT: conjunctiva pink, EOMI, PERRLA. ABSENT: scleral icterus Ear exam: PRESENT: normal external ear exam Mouth exam: PRESENT: moist, tongue midline Neck exam: PRESENT: full ROM. ABSENT: carotid bruit, JVD, lymphadenopathy, thyromegaly Respiratory exam: PRESENT: decreased breath sounds Cardiovascular exam: PRESENT: RRR. ABSENT: diastolic murmur, rubs, systolic murmur Pulses: PRESENT: normal dorsalis pedis pul, +2 pedal pulses bilateral Vascular exam: PRESENT: normal capillary refill GI/Abdominal exam: PRESENT: normal bowel sounds, soft. ABSENT: distended, guarding, mass, organolmegaly, rebound, tenderness Rectal exam: PRESENT: deferred Neurological exam: PRESENT: alert, awake, oriented to person, oriented to place , oriented to time, oriented to situation, CN II-XII grossly intact. ABSENT: motor sensory deficit Psychiatric exam: PRESENT: appropriate affect, normal mood. ABSENT: homicidal ideation, suicidal ideation Skin exam: PRESENT: dry, intact, warm. ABSENT: cyanosis, rash Results Laboratory Results: 10/05/16 04:40 10/06/16 03:59 10/06/16 03:59 Sodium 127.7 L Potassium 4.4 Chloride 82 L Carbon Dioxide 38 H Anion Gap 8 BUN 15 Creatinine 0.70 Est GFR ( Amer) > 60 Est GFR (Non-Af Amer) > 60 Glucose 75 Calcium 10.6 H 09/23/16 04:15 NT-Pro-B Natriuret Pep 527 Impressions: Chest CT 09/22/16 00:00 IMPRESSION: End-stage appearance of obstructive lung disease with thin-walled cavities in the bilateral upper lobes. Cavitary lesion in the superior segment left lower lobe is similar compared to studies pre dating 07/23/2016. Chest X-Ray 10/03/16 00:00 IMPRESSION: No change from 10/01/2016 and 09/27/2016 Assessment & Plan - Diagnosis (1) COPD exacerbation Is this a current diagnosis for this admission?: YesPlan: Continues to current medications (2) Respiratory distress Is this a current diagnosis for this admission?: YesPlan: Still the same (3) Bronchial pneumonia Is this a current diagnosis for this admission?: YesPlan: Patient's white count is still elevated continues to IV antibiotic (4) Hypertension Qualifiers: Hypertension type: essential hypertension Qualified Code(s): I10 - Essential (primary) hypertension Is this a current diagnosis for this admission?: YesPlan: Currently all stable (5) Osteoarthritis Qualifiers: Osteoarthritis location: unspecified site Osteoarthritis type: unspecified Qualified Code(s): M19.90 - Unspecified osteoarthritis, unspecified site Is this a current diagnosis for this admission?: YesPlan: Stable (6) Congestive heart failure Qualifiers: Congestive heart failure type: diastolic Congestive heart failure chronicity: chronic Qualified Code(s): I50.32 - Chronic diastolic ( congestive) heart failure Is this a current diagnosis for this admission?: Yes (7) Pulmonary nodule Is this a current diagnosis for this admission?: Yes (8) Hyponatremia Is this a current diagnosis for this admission?: YesPlan: 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
[2016-10-06] MEDS: TOBRAMYCIN SULFATE NEB 40 MG/ML 30 ML NEB SCH ×2 (08:22→19:52)
[2016-10-06] MEDS: IPRATROPIUM/ALBUTEROL 0.5-2.5 MG/3 ML AMPUL NEB PRN ×2 (08:22→13:04)
[2016-10-06] MEDS: CETIRIZINE 10 MG TABLET PO SCH (09:37)
[2016-10-06] MEDS: ROFLUMILAST 500 MCG TABLET PO SCH (09:38)
[2016-10-06] MEDS: SULFAMETHOXAZOLE/TRIMETHOPRIM 800-160 MG TABLET PO SCH ×2 (09:38→17:48)
[2016-10-06] MEDS: FAMOTIDINE 20 MG TABLET PO SCH (09:38)
[2016-10-06] MEDS: TIOTROPIUM BROMIDE DPI 5 CAP/KIT (18 MCG/CAP) IH SCH (09:38)
[2016-10-06] MEDS: FLUCONAZOLE 100 MG TABLET PO SCH (09:38)
[2016-10-06] MEDS: PREDNISONE 5 MG TABLET PO SCH (09:38)
[2016-10-06] MEDS: CEFEPIME HCL 1 GM in DEXTROSE 5%-WATER 50 ML IV SCH ×2 (09:41→21:18)
[2016-10-06] MEDS: NORMAL SALINE 1000 ML 1,000 ML IV PRN (09:50)
[2016-10-06] MEDS: FLUTICASONE/SALMETEROL DISKUS 500-50 MCG/DOSE IH SCH ×2 (14:19→21:18)
--- NOTE | 2016-10-06 16:38 | RADIOLOGY REPORT (SQ) ---
EXAM DESCRIPTION: BARIUM SWALLOW ESOPHAGUS COMPLETED DATE/TIME: 10/06/2016 2:55 pm REASON FOR STUDY: dysphagia COMPARISON: Multiple previous chest CT exams and chest x-ray Barium swallow 08/22/2016 TECHNIQUE: Under fluoroscopic guidance, patient ingested thin liquid barium. Fluoroscopic spot image s and routine radiographic images acquired and stored on PACS. 12 MM BARIUM TABLET GIVEN: No LIMITATIONS: None. FLUOROSCOPY TIME: 20 seconds 3 series of digital images saved to PACS. FINDINGS: The patient had silent subglottic aspiration of thin liquid barium. Due to the severity o f the aspiration of liquid barium, a full esophagram was not performed IMPRESSION: Large amounts of silent subglottic aspiration with thin liquid barium. COMMENT: Quality ID [id number]: Final reports for procedures using fluoroscopy that document radiation exp osure indices, or exposure time and number of fluorographic images (if radiation exposure indices are not available) TECHNICAL DOCUMENTATION: JOB ID: [id number] [employer]- All Rights Reserved
[2016-10-06] MEDS ORDERED: POLYETHYLENE GLYCOL 3350 POWDER 17 GM/1 PACKET PO ONE (19:30)
[2016-10-06] MEDS: MONTELUKAST SODIUM 10 MG TABLET PO SCH (21:18)
[2016-10-06] MEDS ORDERED: DOCUSATE SODIUM 100 MG CAPSULE PO SCH (22:00)
[2016-10-07] MEDS: NYSTATIN/DEXAMETH/DIPHEN SUSP 120 ML PO SCH ×5 (00:11→23:08)
[2016-10-07 05:16] LABS: ABSOLUTE LYMPHOCYTES (AUTO) 1.4 10^3/uL (0.5-4.7); ABSOLUTE NEUT (AUTO) 13.5 10^3/uL (1.7-8.2); BASOPHILS % (AUTO) 0.1 % (0-2); EOSINOPHILS % (AUTO) 0.2 % (0-6); HEMATOCRIT 30.4 % (36.0-47.0); HEMOGLOBIN 9.7 g/dL (12.0-15.5); HGB HCT DIFFERENCE -1.3; LYMPHOCYTES % (AUTO) 8.8 % (13-45); MEAN CORPUSCULAR HEMOGLOBIN 25.9 pg (27.0-33.4); MEAN CORPUSCULAR HGB CONC 31.8 g/dL (32.0-36.0); MEAN CORPUSCULAR VOLUME 82 fl (80-97); MONOCYTES % (AUTO) 6.2 % (3-13); RED BLOOD COUNT 3.73 10^6/uL (3.72-5.28); RED CELL DISTRIBUTION WIDTH 13.2 % (11.5-14.0); SEGMENTED NEUTROPHILS % (AUTO) 84.7 % (42-78); WHITE BLOOD COUNT 15.9 10^3/uL (4.0-10.5)
[2016-10-07] MEDS: IPRATROPIUM/ALBUTEROL 0.5-2.5 MG/3 ML AMPUL NEB PRN ×4 (05:18→23:48)
[2016-10-07 05:31] LABS: ANION GAP 7 (5-19); BLOOD UREA NITROGEN 13 mg/dL (7-20); CALCIUM 10.1 mg/dL (8.4-10.2); CARBON DIOXIDE 35 mmol/L (22-30); CHLORIDE 89 mmol/L (98-107); CREATININE RESULT 0.63 mg/dL (0.52-1.25); GLUCOSE 78 mg/dL (75-110); POTASSIUM 4.6 mmol/L (3.6-5.0); SODIUM 130.5 mmol/L (137-145)
[2016-10-07] MEDS: [UNRECOGNIZED DRUG - OTHER] PO SCH (05:37)
[2016-10-07] MEDS: DILTIAZEM HCL 60 MG TABLET PO SCH ×3 (05:39→21:39)
[2016-10-07] MEDS: GUAIFENESIN SYRP 200 MG/10 ML UDC PO SCH ×2 (05:39→18:50)
[2016-10-07] MEDS: BUSPIRONE HCL 10 MG TABLET PO SCH ×3 (05:39→21:40)
[2016-10-07] MEDS: NORMAL SALINE 1000 ML 1,000 ML IV PRN (05:45)
[2016-10-07] MEDS: CALCIUM CARBONATE 500 MG TAB.CHEW PO SCH ×4 (08:16→21:40)
[2016-10-07] MEDS: TOBRAMYCIN SULFATE NEB 40 MG/ML 30 ML NEB SCH ×2 (08:25→19:55)
--- NOTE | 2016-10-07 08:41 | PDOC PROGRESS REPORT ---
Subjective Progress Note for:: 10/07/16 Subjective:: Patient is currently doing fair. Patient have a try to do the esophageal x-ray and so some silent aspirations. Patient's denied any chest pain still have a short of breath on and off. Patients waiting for the pulmonary rehab Physical Exam Vital Signs: Temp Pulse Resp BP Pulse Ox 97.7 F 79 18 133/50 H 98 10/07/16 08:25 10/07/16 08:25 10/07/16 08:25 10/07/16 08:25 10/07/16 08:25 Pulse Oximeter Continuous Start: 09/29/16 09: 14 Freq: RTQ4 Status: Active Document 10/07/16 04:00 STI (Rec: 10/07/16 04:19 STI [email or web address]) Pulse Oximetry Assessment Oxygen Saturation (92-100) 96 Oxygen Flow Rate (L/min) 3.5 Oxygen Delivery Method Nasal Cannula Fraction of Inspired Oxygen (FIO2) 34 Equipment Usage Equipment in Use Continuous SpO2 Machine # N-6 Intake & Output 10/06/16 10/07/16 10/08/16 06:59 06:59 06:59 Intake Total 670 1784 Output Total 900 Balance 670 884 Weight 31.2 kg 31.6 kg General appearance: PRESENT: no acute distress Eye exam: PRESENT: PERRLA Mouth exam: PRESENT: neck supple Respiratory exam: PRESENT: decreased breath sounds Cardiovascular exam: PRESENT: +S1, +S2 GI/Abdominal exam: PRESENT: normal bowel sounds, soft Extremities exam: ABSENT: pedal edema Neurological exam: PRESENT: alert, awake, oriented to person, oriented to place , oriented to time Psychiatric exam: PRESENT: anxious Results Laboratory Results: 10/07/16 04:36 10/07/16 04:36 10/07/16 10/07/16 04:36 04:36 WBC 15.9 H RBC 3.73 Hgb 9.7 L Hct 30.4 L MCV 82 MCH 25.9 L MCHC 31.8 L RDW 13.2 Plt Count 322 Seg Neutrophils % 84.7 H Lymphocytes % 8.8 L Monocytes % 6.2 Eosinophils % 0.2 Basophils % 0.1 Absolute Neutrophils 13.5 H Absolute Lymphocytes 1.4 Absolute Monocytes 1.0 Absolute Eosinophils 0.0 Absolute Basophils 0.0 Sodium 130.5 L Potassium 4.6 Chloride 89 L Carbon Dioxide 35 H Anion Gap 7 BUN 13 Creatinine 0.63 Est GFR ( Amer) > 60 Est GFR (Non-Af Amer) > 60 Glucose 78 Calcium 10.1 09/23/16 10/06/16 04:15 03:59 NT-Pro-B Natriuret Pep 527 315 Impressions: Chest CT 09/22/16 00:00 IMPRESSION: End-stage appearance of obstructive lung disease with thin-walled cavities in the bilateral upper lobes. Cavitary lesion in the superior segment left lower lobe is similar compared to studies pre dating 07/23/2016. Chest X-Ray 10/03/16 00:00 IMPRESSION: No change from 10/01/2016 and 09/27/2016 Esophagus X-Ray 10/06/16 00:00 IMPRESSION: Large amounts of silent subglottic aspiration with thin liquid barium. Assessment & Plan - Diagnosis (1) COPD exacerbation Is this a current diagnosis for this admission?: YesPlan: Currently all stable continues to current medications (2) Respiratory distress Is this a current diagnosis for this admission?: YesPlan: Still the same (3) Bronchial pneumonia Is this a current diagnosis for this admission?: YesPlan: Continues to current antibiotic patient always high risk for the aspirations pneumonia (4) Hypertension Qualifiers: Hypertension type: essential hypertension Qualified Code(s): I10 - Essential (primary) hypertension Is this a current diagnosis for this admission?: YesPlan: Currently all stable (5) Osteoarthritis Qualifiers: Osteoarthritis location: unspecified site Osteoarthritis type: unspecified Qualified Code(s): M19.90 - Unspecified osteoarthritis, unspecified site Is this a current diagnosis for this admission?: YesPlan: Stable (6) Congestive heart failure Qualifiers: Congestive heart failure type: diastolic Congestive heart failure chronicity: chronic Qualified Code(s): I50.32 - Chronic diastolic ( congestive) heart failure Is this a current diagnosis for this admission?: YesPlan: Currently stable (7) Pulmonary nodule Is this a current diagnosis for this admission?: Yes (8) Hyponatremia Is this a current diagnosis for this admission?: YesPlan: Currently all improving - Time Time Spent with patient: 15-24 minutes Medications reviewed and adjusted accordingly: Yes Anticipated discharge: Other Within: Other - Inpatient Certification Medical Necessity: Need Close Monitoring Due to Risk of Patient Decompensation, Need for IV Antibiotics Post Hospital Care: D/C Crm 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 Discussed with the patient and the son about the all the test result and overall poor prognosis
[2016-10-07] MEDS: ROFLUMILAST 500 MCG TABLET PO SCH (09:40)
[2016-10-07] MEDS: PREDNISONE 5 MG TABLET PO SCH (09:40)
[2016-10-07] MEDS: FAMOTIDINE 20 MG TABLET PO SCH (09:40)
[2016-10-07] MEDS: FLUCONAZOLE 100 MG TABLET PO SCH (09:40)
[2016-10-07] MEDS: CETIRIZINE 10 MG TABLET PO SCH (09:40)
[2016-10-07] MEDS: FLUTICASONE/SALMETEROL DISKUS 500-50 MCG/DOSE IH SCH ×2 (09:41→21:40)
[2016-10-07] MEDS: TIOTROPIUM BROMIDE DPI 5 CAP/KIT (18 MCG/CAP) IH SCH (09:42)
[2016-10-07] MEDS: POLYETHYLENE GLYCOL 3350 POWDER 17 GM/1 PACKET PO SCH (09:43)
[2016-10-07] MEDS: SULFAMETHOXAZOLE/TRIMETHOPRIM 800-160 MG/20 ML UDCUP PO SCH ×2 (09:44→18:50)
[2016-10-07] MEDS: CEFEPIME HCL 1 GM in DEXTROSE 5%-WATER 50 ML IV SCH ×2 (09:46→21:40)
--- NOTE | 2016-10-07 13:48 | PDOC PROGRESS REPORT ---
Subjective Progress Note for:: 10/07/16 Subjective:: Please find me some new lungs Physical Exam Vital Signs: Temp Pulse Resp BP Pulse Ox 97.5 F 88 20 117/53 L 95 10/07/16 11:41 10/07/16 11:41 10/07/16 12:10 10/07/16 11:41 10/07/16 12:10 Pulse Oximeter Continuous Start: 09/29/16 09: 14 Freq: RTQ4 Status: Active Document 10/07/16 12:10 TPO (Rec: 10/07/16 12:10 TPO [email or web address]) Pulse Oximetry Assessment Oxygen Saturation (92-100) 95 Oxygen Delivery Method Bi-pap Fraction of Inspired Oxygen (FIO2) 30 Equipment Usage Equipment in Use Continuous SpO2 Machine # N-[id number] Intake & Output 10/06/16 10/07/16 10/08/16 06:59 06:59 06:59 Intake Total 670 1784 0 Output Total 900 150 Balance 670 884 -150 Weight 31.2 kg 31.6 kg General appearance: PRESENT: cooperative, disheveled, mild distress, thin, well- developed Head exam: PRESENT: atraumatic, normocephalic Eye exam: PRESENT: conjunctiva pale, EOMI Mouth exam: PRESENT: dry mucosa, neck supple, tongue midline Neck exam: ABSENT: carotid bruit, JVD, lymphadenopathy, thyromegaly Respiratory exam: PRESENT: decreased breath sounds, prolonged expiratory phas, rales, rhonchi, symmetrical Cardiovascular exam: PRESENT: RRR, +S1, +S2 Pulses: PRESENT: normal radial pulses GI/Abdominal exam: PRESENT: normal bowel sounds, soft. ABSENT: distended, guarding, mass, organolmegaly, rebound, tenderness Rectal exam: PRESENT: deferred Musculoskeletal exam: PRESENT: normal inspection Neurological exam: PRESENT: alert, awake Psychiatric exam: PRESENT: depressed Skin exam: PRESENT: dry, warm Results Laboratory Results: 10/07/16 04:36 10/07/16 04:36 10/07/16 10/07/16 04:36 04:36 WBC 15.9 H RBC 3.73 Hgb 9.7 L Hct 30.4 L MCV 82 MCH 25.9 L MCHC 31.8 L RDW 13.2 Plt Count 322 Seg Neutrophils % 84.7 H Lymphocytes % 8.8 L Monocytes % 6.2 Eosinophils % 0.2 Basophils % 0.1 Absolute Neutrophils 13.5 H Absolute Lymphocytes 1.4 Absolute Monocytes 1.0 Absolute Eosinophils 0.0 Absolute Basophils 0.0 Sodium 130.5 L Potassium 4.6 Chloride 89 L Carbon Dioxide 35 H Anion Gap 7 BUN 13 Creatinine 0.63 Est GFR ( Amer) > 60 Est GFR (Non-Af Amer) > 60 Glucose 78 Calcium 10.1 09/23/16 10/06/16 04:15 03:59 NT-Pro-B Natriuret Pep 527 315 Impressions: Chest CT 09/22/16 00:00 IMPRESSION: End-stage appearance of obstructive lung disease with thin-walled cavities in the bilateral upper lobes. Cavitary lesion in the superior segment left lower lobe is similar compared to studies pre dating 07/23/2016. Chest X-Ray 10/03/16 00:00 IMPRESSION: No change from 10/01/2016 and 09/27/2016 Esophagus X-Ray 10/06/16 00:00 IMPRESSION: Large amounts of silent subglottic aspiration with thin liquid barium. Assessment & Plan - Diagnosis (1) Respiratory failure with hypoxia and hypercapnia Qualifiers: Chronicity: chronic Qualified Code(s): J96.11 - Chronic respiratory failure with hypoxia; J96.12 - Chronic respiratory failure with hypercapnia Is this a current diagnosis for this admission?: YesPlan: Patient continues to be close to baseline (2) Bronchial pneumonia Is this a current diagnosis for this admission?: Yes (3) Breast cancer Qualifiers: Laterality: bilateral Is this a current diagnosis for this admission?: Yes (4) Bronchiectasis Is this a current diagnosis for this admission?: Yes
--- NOTE | 2016-10-07 13:49 | PDOC PROGRESS REPORT ---
Subjective Progress Note for:: 10/03/16 Subjective:: Little tired today Physical Exam Vital Signs: Temp Pulse Resp BP Pulse Ox 98.2 F 110 H 22 H 135/67 H 94 10/03/16 12:05 10/03/16 12:05 10/03/16 12:05 10/03/16 12:05 10/03/16 12:05 Pulse Oximeter Continuous Start: 09/29/16 09: 14 Freq: RTQ4 Status: Active Document 10/03/16 12:00 JDR (Rec: 10/03/16 12:47 JDR [email or web address]) Pulse Oximetry Assessment Oxygen Saturation (92-100) 96 Oxygen Flow Rate 3 Oxygen Delivery Method Nasal Cannula Equipment Usage Equipment in Use Continuous SpO2 Machine # 6 Intake & Output 10/02/16 10/03/16 10/04/16 06:59 06:59 06:59 Intake Total 960 923 460 Output Total 600 Balance 360 923 460 Weight 31.8 kg 30.4 kg General appearance: PRESENT: cooperative, disheveled, thin, well-developed Head exam: PRESENT: atraumatic, normocephalic Eye exam: PRESENT: conjunctiva pale Mouth exam: PRESENT: dry mucosa, neck supple, tongue midline Neck exam: ABSENT: carotid bruit, JVD, lymphadenopathy, thyromegaly Respiratory exam: PRESENT: decreased breath sounds, prolonged expiratory phas, rhonchi, symmetrical, wheezes Cardiovascular exam: PRESENT: RRR, +S1, +S2 Pulses: PRESENT: normal radial pulses GI/Abdominal exam: PRESENT: normal bowel sounds, soft. ABSENT: distended, guarding, mass, organolmegaly, rebound, tenderness Rectal exam: PRESENT: deferred Musculoskeletal exam: PRESENT: normal inspection Neurological exam: PRESENT: alert, awake Psychiatric exam: PRESENT: depressed Skin exam: PRESENT: dry, warm Results Laboratory Results: 10/02/16 05:01 10/03/16 05:49 10/03/16 05:49 Sodium 130.5 L Potassium 5.3 H Chloride 83 L Carbon Dioxide 40 H* Anion Gap 8 BUN 17 Creatinine 0.57 Est GFR ( Amer) > 60 Est GFR (Non-Af Amer) > 60 Glucose 98 Calcium 10.4 H 09/23/16 04:15 NT-Pro-B Natriuret Pep 527 Impressions: Chest CT 09/22/16 00:00 IMPRESSION: End-stage appearance of obstructive lung disease with thin-walled cavities in the bilateral upper lobes. Cavitary lesion in the superior segment left lower lobe is similar compared to studies pre dating 07/23/2016. Chest X-Ray 10/03/16 00:00 IMPRESSION: No change from 10/01/2016 and 09/27/2016 Assessment & Plan - Diagnosis (1) Respiratory failure with hypoxia and hypercapnia Qualifiers: Chronicity: chronic Qualified Code(s): J96.11 - Chronic respiratory failure with hypoxia; J96.12 - Chronic respiratory failure with hypercapnia Is this a current diagnosis for this admission?: YesPlan: Unchanged (2) Bronchial pneumonia Is this a current diagnosis for this admission?: Yes (3) Breast cancer Qualifiers: Laterality: bilateral Is this a current diagnosis for this admission?: Yes (4) Bronchiectasis Is this a current diagnosis for this admission?: Yes
[2016-10-07] MEDS: MONTELUKAST SODIUM 10 MG TABLET PO SCH (21:39)
[2016-10-08] MEDS: NORMAL SALINE 1000 ML 1,000 ML IV PRN (02:28)
[2016-10-08] MEDS: NYSTATIN/DEXAMETH/DIPHEN SUSP 120 ML PO SCH ×3 (05:34→19:56)
[2016-10-08] MEDS: BUSPIRONE HCL 10 MG TABLET PO SCH ×3 (05:34→17:17)
[2016-10-08] MEDS: DILTIAZEM HCL 60 MG TABLET PO SCH ×2 (05:34→15:40)
[2016-10-08] MEDS: [UNRECOGNIZED DRUG - OTHER] PO SCH (05:34)
[2016-10-08] MEDS: GUAIFENESIN SYRP 200 MG/10 ML UDC PO SCH ×2 (05:35→17:18)
[2016-10-08] MEDS: TOBRAMYCIN SULFATE NEB 40 MG/ML 30 ML NEB SCH (07:45)
[2016-10-08] MEDS: IPRATROPIUM/ALBUTEROL 0.5-2.5 MG/3 ML AMPUL NEB PRN ×2 (07:45→16:47)
--- NOTE | 2016-10-08 10:27 | ST Inp Modified Barium Swallow ---
Medical Diagnosis - Medical Diagnoses Medical Diagnosis Description & ICD-10 Code(s): respiratory failure - ICD-10 Tx Diagnosis Coding (1) Bronchiectasis ICD-10 Code(s): J47.9 - BRONCHIECTASIS, UNCOMPLICATED (2) COPD exacerbation ICD-10 Code(s): J44.1 - CHRONIC OBSTRUCTIVE PULMONARY DISEASE W (ACUTE) EXACERBATION (3) Congestive heart failure ICD-10 Code(s): I50.9 - HEART FAILURE, UNSPECIFIED (4) Hyponatremia ICD-10 Code(s): E87.1 - HYPO-OSMOLALITY AND HYPONATREMIA (5) Hypoxemia ICD-10 Code(s): R09.02 - HYPOXEMIA (6) Pulmonary nodule ICD-10 Code(s): R91.1 - SOLITARY PULMONARY NODULE (7) Respiratory distress ICD-10 Code(s): R06.00 - DYSPNEA, UNSPECIFIED (8) Respiratory failure with hypoxia and hypercapnia ICD-10 Code(s): J96.91 - RESPIRATORY FAILURE, UNSPECIFIED WITH HYPOXIA J96.92 - RESPIRATORY FAILURE, UNSPECIFIED WITH HYPERCAPNIA (9) Bronchial pneumonia ICD-10 Code(s): J18.0 - BRONCHOPNEUMONIA, UNSPECIFIED ORGANISM ST Inpatient MBS - History Medications: Medications Reviewed Allergies: Refer to medical record - Subjective Current Nutritional Means: PO Current PO Diet: Regular Current Symptoms: Aspiration Pain: Patient reports - "I'm going to have a panic attack", 0/5 - Objective Assessment: Upright, Left Lateral - Food Trials Food Trials Used: Thin liquids, [place] thick liquids, Pureed The Patient: Was Able to Self Feed - Assessment Labial Function: Within Functional Limits Lingual Function: Within Functional Limits Mandibular Function: Within Functional Limits Dentition: Partial Velo-Pharyngeal Function: Not assessed Laryngeal Function: hoarse, breathy voice - Pharyngeal Stage Initiation of Pharyngeal Stage: Delayed Decreased Laryngeal Elevation: Yes Reduced Velo-Pharyngeal Closure: no Reduced Pressure Generation: Yes Reduced Tongue Base Retraction: Yes Pre-Swallowing Pooling in Valleculae: None Pre-Swallowing Pooling in Pyriforms: None Reduced Thyro-Hyiod Approximation: Yes Reduced Epiglottic Excursion: No Reduced Pharyngeal Peristalsis: Yes Multiple Swallows With: Ineffective Clearance Post Swallow Residuals in Valleculae: Mild Post Swallow Residuals in Pyriforms: Mild - Esophageal Stage Cricophageal Function: Impaired - Impression/Summary Laryngeal Penetration: Yes Tracheal Aspiration: yes Productive Cough: No Effective Clearing: no Patient Presents With: Pharyngeal stage dysph., Severe Risk of Aspiration: Severe Risk of Nutritional Compromise: Severe - Recommendations NPO: no Solid Diet Recommendations: Pureed Liquid Diet Recommendations: Thin Regular Diet: No Strict Aspitarion Precautions: Yes Dysphagia Therapy with PROTECTION SPECIALIST: Yes, Inpatient - ensure understanding of diet restrictions and strategies as patient not feeling well at end of study - reported dizzy and needed CPAP Recommended Techniques: Fully Upright During Meal, Small Bites and Sips, Alternate Bites/Sips Supervision: Distant Other Recommendations: Patient presents with mild residuals on thin liquids but no observed aspiration or penetration (however patient noted to take very small bites and sips). Patient trialed with nectar thick liquids (similiar to consistency aspirated on barium swallow study) with noted deep silent aspiration despite small sip. Adequate clearance for puree and patient refused cracker - stated too hard & wouldn't eat any foods that hard. RECOMMENDATIONS: 1. Thin liquids, small sips while fully upright. 2. Puree or meltable solids , small bites. 3. Alternate bites & sips. 4. Avoid 'thick' liquids such as drinkable yogurt, tomato juice, fruit nectars and eggnog. Patient observed to aspirate on these consistencies. 5. Strict aspiration precautions. - Time Total Time: 20 Total Timed Minutes: 0
[2016-10-08] MEDS: FLUCONAZOLE 100 MG TABLET PO SCH (11:27)
[2016-10-08] MEDS: ROFLUMILAST 500 MCG TABLET PO SCH (11:28)
[2016-10-08] MEDS: CALCIUM CARBONATE 500 MG TAB.CHEW PO SCH ×3 (11:28→17:17)
[2016-10-08] MEDS: FAMOTIDINE 20 MG TABLET PO SCH (11:28)
[2016-10-08] MEDS: PREDNISONE 5 MG TABLET PO SCH (11:28)
[2016-10-08] MEDS: CETIRIZINE 10 MG TABLET PO SCH (11:28)
[2016-10-08] MEDS: POLYETHYLENE GLYCOL 3350 POWDER 17 GM/1 PACKET PO SCH (11:29)
[2016-10-08] MEDS: FLUTICASONE/SALMETEROL DISKUS 500-50 MCG/DOSE IH SCH (11:29)
[2016-10-08] MEDS: TIOTROPIUM BROMIDE DPI 5 CAP/KIT (18 MCG/CAP) IH SCH (11:29)
[2016-10-08] MEDS: SULFAMETHOXAZOLE/TRIMETHOPRIM 800-160 MG/20 ML UDCUP PO SCH ×2 (11:30→17:17)
[2016-10-08] MEDS: CEFEPIME HCL 1 GM in DEXTROSE 5%-WATER 50 ML IV SCH (11:32)
--- NOTE | 2016-10-08 13:06 | PDOC TRANSFER SUMMARY ---
General - Admit/Disc Date/PCP Admission Date/Primary Care Provider: 09/21/16 14:00 TRUDY MERCER MD Discharge Date: 10/08/16 - Discharge Diagnosis (1) COPD exacerbation Is this a current diagnosis for this admission?: YesSummary: Continues to nebulizer treatments (2) Respiratory distress Is this a current diagnosis for this admission?: YesSummary: Currently all stable with the end-stage emphysema and COPD and continues to use the as needed BiPAP (3) Bronchial pneumonia Is this a current diagnosis for this admission?: YesSummary: Continues to IV antibiotic for another 7 days and the p.o. Bactrim Repeat the chest x-ray after the antibiotic (4) Hypertension Is this a current diagnosis for this admission?: YesSummary: Currently continues with the Cardizem (5) Osteoarthritis Is this a current diagnosis for this admission?: YesSummary: Use as needed Tylenol (6) Congestive heart failure Is this a current diagnosis for this admission?: YesSummary: Currently all stable (7) Pulmonary nodule Is this a current diagnosis for this admission?: YesSummary: Patient with significant cavitary lesion most likely a bronchiectasis with the several follow-up with the pulmonary at this stage patient is not a candidate for any further surgical options and patient do not want to go for any aggressive treatments will continues to monitor follow-up with the pulmonary (8) Hyponatremia Is this a current diagnosis for this admission?: YesSummary: Most likely SIADH will continues to 1200 cc fluid restrictions (9) Bronchiectasis Is this a current diagnosis for this admission?: YesSummary: Continues on nebulizer treatments and IV antibiotic (10) Breast cancer Is this a current diagnosis for this admission?: YesSummary: Currently stable (11) Abnormal LFTs Is this a current diagnosis for this admission?: YesSummary: Currently all stable and very extensive workup done in the past (12) Anxiety disorder Is this a current diagnosis for this admission?: YesSummary: Continues to BuSpar 5 mg p.o. q. 8 (13) Osteoporosis Is this a current diagnosis for this admission?: YesSummary: Continues to calcium and vitamin D - Additional Information Discharge Diet: Cardiac, Other (Comments) Discharge Activity: Activity As Tolerated Home Medications: Albuterol Sulfate [Proair HFA Inhalation Aerosol 8.5 gm MDI] 1 puff IH Q4HP PRN 09/21/16 Diltiazem HCl [Cardizem 60 mg Tablet] 60 mg PO Q8 09/21/16 Famotidine [Pepcid 20 mg Tablet] 20 mg PO BID 09/21/16 Fluticasone/Salmeterol [Advair 500-50 Diskus 14 Dose/Diskus] 1 puff IH Q12 09/21 Ipratropium/Albuterol Sulfate [Iprat-Albut 0.5-3(2.5) mg/3 ml] 3 ml IH Q6HP PRN 09/21/16 Montelukast Sodium [Singulair 10 mg Tablet] 10 mg PO QPM 09/21/16 Multivitamin [Tab-A-Jared] 1 tab PO DAILY 09/21/16 Roflumilast [Daliresp 500 mcg Tablet] 500 mg PO DAILY 09/21/16 Tiotropium [place] [Spiriva Handihaler 5 Cap/Kit (18 Mcg/Cap)] 1 puff IH DAILY 09/21/16 Buspirone HCl [Buspar 10 mg Tablet] 5 mg PO Q8 #0 tablet 10/08/16 Calcium Carbonate [Tums Chewable 500 mg Tab.chew] 500 mg PO MEALSHS #0 tab.chew 10/08/16 Cefepime 1 gm/D5w RTU [Maxipime RTU 1 gm/D5w 50 ml Premix Bag] 1 gm IV Q12 #14 rtupb 10/08/16 Cetirizine HCl [Zyrtec 10 mg Tablet] 10 mg PO DAILY #0 tablet 10/08/16 Guaifenesin [Robitussin Syrup 200 mg/10 ml Ud Cup] 600 mg PO BID #0 udc Prednisone [Deltasone 5 mg Tablet] 5 mg PO DAILY #7 tablet 10/08/16 Sulfamethoxazole/Trimethoprim [Septra Susp 800-160 mg/20 ml] 20 ml PO BID #14 udc 10/08/16 History of Present Illness Admission Date/PCP: 09/21/16 14:00 TRUDY MERCER MD History of Present Illness: MANUEL ARGUETA is a 70 year old female This 70-year-old female with a Significant history of the COPD with advanced emphysema and a 3-4 L oxygen at home Patients came to the emergency department with increasing the shortness of the breath with increasing more cough and patient's white count was elevated and the patient was started on IV steroid and IV antibiotic and admitting in the hospital Patient is currently doing much better patient's wheezing is all resolved and patient's white count is also better to Patients have a CT of the chest was done by her pulmonary in March 2016 for some nodules and presence currently follow with him Patient also have abnormal liver enzyme and all workup done in the past and was stable Hospital Course Hospital Course: There is a 70-year-old female with a significant history of the COPD with the end-stage emphysema and chronic oxygen dependent and a history of multiple other comorbidity as above came to the emergency departmentWith the shortness of the breath and pneumonia and COPD acute exacerbations . At this time patient's was started on IV Solu-Medrol IV antibiotic and nebulizer treatment and the pulmonary doctor Marcial was consulted Patients on and off required a BiPAP patient's p.o. CO2 level was elevated. Patient's otherwise remained stable patient still have a chronic aspirations due to the dysphagia Patient at this point GI was consulted and suggest the patient high risk for the endoscopy and patients do not want to put any PEG tube Patient was on IV cefepime and also p.o. 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 and currently on a fluid restrictions 1200 cc Very extensive discussed with the pulmonary suggest that to this is the maximum treatments patient is getting and nothing else can be offer much and suggest the may be a pulmonary rehab Patient at this point continues to more 7 days antibiotic and reassess again Very extensive discussions with the patient's and patient's continues to be a DNR/DNI and do not want any more aggressive treatments and do not want any PEG tube placement Very extensive discussions with the son and the sister about the patient's current conditions with a not a very good prognosis for the long-term due to the end-stage COPD and multiple other comorbidityAnd understand very well and continues to maintain the DNR/DNI and we strongly suggest the pulmonary rehab's Physical Exam Vital Signs: Temp Pulse Resp BP Pulse Ox 97.9 F 84 19 137/64 H 100 10/08/16 11:25 10/08/16 11:33 10/08/16 11:33 10/08/16 11:25 10/08/16 11:33 Pulse Oximeter Continuous Start: 09/29/16 09: 14 Freq: RTQ4 Status: Active Document 10/08/16 11:33 [facility] [place] (Rec: 10/08/16 11:44 [facility] [place] [email or web address]) Pulse Oximetry Assessment Oxygen Saturation (92-100) 100 Oxygen Delivery Method Bi-pap Equipment Usage Equipment in Use Continuous SpO2 Machine # N 6 Intake & Output 10/07/16 10/08/16 10/09/16 06:59 06:59 06:59 Intake Total 1784 1672 222 Output Total 900 772 400 Balance 884 900 -178 Weight 31.6 kg 31.5 kg General appearance: PRESENT: no acute distress Eye exam: PRESENT: PERRLA Mouth exam: PRESENT: neck supple Respiratory exam: PRESENT: decreased breath sounds Cardiovascular exam: PRESENT: +S1, +S2 GI/Abdominal exam: PRESENT: normal bowel sounds, soft. ABSENT: tenderness Neurological exam: PRESENT: alert, awake, oriented to person, oriented to place , oriented to time, oriented to situation Psychiatric exam: PRESENT: anxious Skin exam: PRESENT: dry Results Laboratory Results: 10/07/16 04:36 10/07/16 04:36 09/23/16 10/06/16 04:15 03:59 NT-Pro-B Natriuret Pep 527 315 Impressions: Chest CT 09/22/16 00:00 IMPRESSION: End-stage appearance of obstructive lung disease with thin-walled cavities in the bilateral upper lobes. Cavitary lesion in the superior segment left lower lobe is similar compared to studies pre dating 07/23/2016. Chest X-Ray 10/03/16 00:00 IMPRESSION: No change from 10/01/2016 and 09/27/2016 Esophagus X-Ray 10/06/16 00:00 IMPRESSION: Large amounts of silent subglottic aspiration with thin liquid barium. Transfer Plan - Time Spent with Patient Time spent with patient: Greater than 30 Minutes Plan Time Spent: Greater than 30 Minutes - Discharge the patient's to the pulmonary rehab at [place]. Continues to IV antibiotic for another 7 days continues to nebulizer treatment and repeat the chest x-ray and repeat the CBC and Chem-7 in 1 week Patient's overall prognosis is poor discussed with the patient and all family Continues to use the BiPAP as patient using at least 3-4 hours per day
[2016-10-08] MEDS ORDERED: NORMAL SALINE 10 ML SDV (AFTER EACH USE) IV PRN (13:52)
--- NOTE | 2016-10-08 15:16 | RADIOLOGY REPORT (SQ) ---
EXAM DESCRIPTION: FLUORO/CV PLACEMENT; PICC INSERTION; U/S GUIDE FOR VASCULAR ACCESS COMPLETED DATE/TIME: 10/08/2016 1:39 pm REASON FOR STUDY: PICC INSERTION; patient is going to rehab of IV antiobitics COMPARISON: Multiple previous chest films and chest CT this hospitalization FLUOROSCOPY TIME: 0.8 minutes 1 ultrasound and 1 digital chest radiograph images saved to PACS. TECHNIQUE: Fluoroscopic and ultrasound guided PICC placement. LIMITATIONS: None. PROCEDURE: After written consent and assessment were obtained, the patient was brought into the fluo roscopy room and place supine on the table. Ultrasound was used on the patient's right arm for PICC access. The right arm was prepped and draped in a sterile fashion along with the ultrasound probe. Th e entry site was anesthetized with 3 mL of 1% lidocaine. A 21 gauge 7 cm needle was advanced through the skin and into the right basilic vein under live ultrasound guidance. An ultrasound image was poonam ed to PACS confirming access site. A .018 guide wire was then inserted through the needle and into t he venous system. The needle was the removed and an 11 blade scalpel was used to make a 1cm skin inci sammy. A 5 fr peel-away sheath was advanced over the wire and into the venous system. A measurement w as then made using the existing wire and live fluoroscopic guidance. The wire was then removed and th e trimmed. The PICC was advanced through the peel-away sheath and into the venous system. The peel-aw ay sheath was removed and the catheter was adhered to the patients arm with a stat lock. The catheter was then aspirated and flushed and a sterile bandage was placed over the access site. A fluoroscopi c spot image was saved to PACS confirming the catheter tip within the superior vena cava. IMPRESSION: SUCCESSFUL PLACEMENT OF A 5 FR DUAL LUMEN 38 CM PICC IN THE right basilic VEIN. COMMENT: Patient medication list reviewed: Yes- Quality ID# [id number]:Eligible professional attests to doc umenting in the medical record they obtained, updated, or reviewed the patient's current medications. . Quality ID 145: Final reports for procedures using fluoroscopy that document radiation exposure abhi terry, or exposure time and number of fluorographic images (if radiation exposure indices are not avail able) Quality ID #76: The patient was prepped and draped using maximum sterile barrier technique including cap, mask, sterile gown, sterile gloves, a large sterile sheet, hand hygiene, and 2% Chlorhexidine fo r cutaneous antisepsis. When ultrasound is used, sterile ultrasound techniques are followed requiring sterile gel and sterile probes. TECHNICAL DOCUMENTATION: JOB ID: [id number]- All Rights Reserved
[2016-10-08 15:45] VITALS: BP 136/65
--- NOTE | 2016-10-08 18:51 | PDOC PROGRESS REPORT ---
Subjective Progress Note for:: 10/08/16 Subjective:: I am scheduled to leave today Physical Exam Vital Signs: Temp Pulse Resp BP Pulse Ox 98.0 F 90 20 136/65 H 98 10/08/16 15:32 10/08/16 16:47 10/08/16 16:47 10/08/16 15:32 10/08/16 16:47 Pulse Oximeter Continuous Start: 09/29/16 09: 14 Freq: RTQ4 Status: Active Document 10/08/16 16:47 [facility] (Rec: 10/08/16 17:53 [facility] [email or web address]) Pulse Oximetry Assessment Oxygen Saturation (92-100) 98 Oxygen Flow Rate (L/min) 3.5 Oxygen Delivery Method Nasal Cannula Equipment Usage Equipment in Use Continuous SpO2 Machine # [id number] Intake & Output 10/07/16 10/08/16 10/09/16 06:59 06:59 06:59 Intake Total 1784 1672 222 Output Total 900 772 400 Balance 884 900 -178 Weight 31.6 kg 31.5 kg General appearance: PRESENT: no acute distress, disheveled, thin, well-developed Head exam: PRESENT: atraumatic, normocephalic Eye exam: PRESENT: conjunctiva pale, EOMI Mouth exam: PRESENT: dry mucosa, neck supple, tongue midline Neck exam: ABSENT: carotid bruit, JVD, lymphadenopathy, thyromegaly Respiratory exam: PRESENT: decreased breath sounds, prolonged expiratory phas, rhonchi, symmetrical Cardiovascular exam: PRESENT: RRR, +S1, +S2 Pulses: PRESENT: normal radial pulses GI/Abdominal exam: PRESENT: normal bowel sounds, soft. ABSENT: distended, guarding, mass, organolmegaly, rebound, tenderness Rectal exam: PRESENT: deferred Musculoskeletal exam: PRESENT: normal inspection Neurological exam: PRESENT: alert, awake Psychiatric exam: PRESENT: depressed Skin exam: PRESENT: dry, warm Results Laboratory Results: 10/07/16 04:36 10/07/16 04:36 09/23/16 10/06/16 04:15 03:59 NT-Pro-B Natriuret Pep 527 315 Impressions: Chest CT 09/22/16 00:00 IMPRESSION: End-stage appearance of obstructive lung disease with thin-walled cavities in the bilateral upper lobes. Cavitary lesion in the superior segment left lower lobe is similar compared to studies pre dating 07/23/2016. Chest X-Ray 10/03/16 00:00 IMPRESSION: No change from 10/01/2016 and 09/27/2016 Esophagus X-Ray 10/06/16 00:00 IMPRESSION: Large amounts of silent subglottic aspiration with thin liquid barium. Guidance Fluoroscopy 10/08/16 00:00 IMPRESSION: SUCCESSFUL PLACEMENT OF A 5 FR DUAL LUMEN 38 CM PICC IN THE right basilic VEIN. Interventional Vascular Procedure 10/08/16 00:00 IMPRESSION: SUCCESSFUL PLACEMENT OF A 5 FR DUAL LUMEN 38 CM PICC IN THE right basilic VEIN. PICC Line Insertion 10/08/16 00:00 IMPRESSION: SUCCESSFUL PLACEMENT OF A 5 FR DUAL LUMEN 38 CM PICC IN THE right basilic VEIN. Assessment & Plan - Diagnosis (1) Respiratory failure with hypoxia and hypercapnia Qualifiers: Chronicity: chronic Qualified Code(s): J96.11 - Chronic respiratory failure with hypoxia; J96.12 - Chronic respiratory failure with hypercapnia Is this a current diagnosis for this admission?: YesPlan: She is at or near her baseline (2) Bronchial pneumonia Is this a current diagnosis for this admission?: Yes (3) Breast cancer Qualifiers: Laterality: bilateral Is this a current diagnosis for this admission?: Yes (4) Bronchiectasis Is this a current diagnosis for this admission?: Yes
[2016-10-08] MEDS ORDERED: BUSPIRONE HCL 10 MG TABLET PO ONE (20:30)
[2016-10-08] MEDS ORDERED: NORMAL SALINE 10 ML SDV (SCHEDULED) IV SCH (22:00)
--- NOTE | 2016-10-08 23:18 | CONSULTATION REPORT E ---
Consultation Report NAME: MANUEL ARGUETA : 1945 AGE: 70Y DATE: 10/07/2016 328 A TO: SKYLER BARLOW M.D. FROM: TRUDY MERCER M.D. Requesting Physician HISTORY: A 70-year-old patient with multiple medical illnesses admitted on 09/22/2016. Consultation was requested for dysphagia. Patient admits to having occasional difficulty swallowing but has been able to continue eating. She had a barium swallow on 10/06/2016 that had to be discontinued due to the severity of barium aspiration. 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 CHF. 2. Hypertension. 3. Severe COPD. 4. Atrial fibrillation. 5. Anemia. PAST SURGICAL HISTORY: 1. Hysterectomy. 2. Mastectomy. 3. Tonsillectomy. ALLERGIES: Sertraline and ezetimibe. CURRENT MEDICATIONS: Reviewed on the patient's chart. REVIEW OF SYSTEMS: Other than the above is noncontributory. She does follow up with the data acquisition technician. PHYSICAL EXAMINATION: GENERAL: Shows a lady in some respiratory distress. HEENT: There is some pallor but no jaundice. Oropharynx normal. NECK: No bruit. No JVD. CHEST: There is some kyphosis. LUNGS: Reduced breath sounds bilaterally. CARDIAC: Heart sounds 1 and 2 normal. ABDOMEN: Soft and nontender. No masses. NEUROLOGIC: Not fully examined. LABORATORY STUDIES: Showed an H and H of 9.7 and 30, white count of 16, with a left shift. Sodium of 130. IMAGING: Her x-rays were reviewed, including CT of the chest. ASSESSMENT AND PLAN: Dysphagia. Patient does have occasional difficulty swallowing and also had evidence of aspiration during a barium swallow. She has severe end-stage COPD and I feel the risk of endoscopy and conscious sedation outweigh the benefit at this time. She should continue to be careful while eating. She is scheduled to see the speech therapist for modified barium swallow and for therapy. I will see her in the future as needed. DICTATING PHYSICIAN: SKYLER BARLOW M.D. [id number] PHY#: [id number] ID: [id number] JOB#: [id number] ACCT: [id number] cc:SKYLER BARLOW M.D. >
--- NOTE | 2016-10-09 13:33 | RADIOLOGY REPORT (SQ) ---
EXAM DESCRIPTION: COOKIE SWALLOW COMPLETED DATE/TIME: 10/08/2016 10:58 am REASON FOR STUDY: Dysphagia, unspecified R 13.10, food in pharynx causing other injury, sequela T1 7 .228 S aspiration of thin liquids COMPARISON: Cookie swallow 11/07/2014 TECHNIQUE: Videofluoroscopic swallowing examination was performed in conjunction with speech patholo gy. Videofluoroscopic imaging was obtained and reviewed and these are the findings: RADIATION DOSE: Total fluoroscopy time: 47 seconds 1 fluoroscopy images saved to PACS. LIMITATIONS: Patient was severely shortness of breath. Limited swallow evaluation was performed. FINDINGS: The patient was brought into the fluoro room and placed upright on a modified barium swall ow chair. The patient was then given multiple consistencies mixed with barium to swallow under live fluoroscopic video guidance. According to the Speech Pathologist there was no definite laryngeal pen etration or tracheal aspiration. Limited small swallows were evaluated due to patient's shortness of breath. Mild oral and pharyngeal phase delay noted. Mild to moderate post swallow residual was see n within the vallecula and piriform sinuses. Please see speech pathology report further details and recommendations. IMPRESSION: NO EVIDENCE OF LARYNGEAL PENETRATION OR TRACHEAL ASPIRATION ON LIMITED SWALLOW EVALUATIO NS ABOVE.PLEASE SEE SPEECH PATHOLOGIST REPORT FOR OTHER FINDINGS AND RECOMMENDATIONS. COMMENT: Quality ID [id number]: Final reports for procedures using fluoroscopy that document radiation exp osure indices, or exposure time and number of fluorographic images (if radiation exposure indices are not available) TECHNICAL DOCUMENTATION: JOB ID: [id number] [email or web address]- All Rights Reserved
== END 2016-10-08 20:57 | DRG 189 ==
LOC: ER 11:36 → EH 14:00 → 3N 16:41 → 3S 10-01 18:47
PROVIDERS: ADMIT Family Medicine; ATTEND Family Medicine
PROC: 5A09557 Assistance with Respiratory Ventilation, Greater than 96 Consecutive Hours, Continuous Positive Airway Pressure (ICD-10-PCS; 2016-09-21)
PROC: 02HV33Z Insertion of Infusion Device into Superior Vena Cava, Percutaneous Approach (ICD-10-PCS; principal; 2016-10-08)
PROC: B518ZZA Fluoroscopy of Superior Vena Cava, Guidance (ICD-10-PCS; 2016-10-08)
PROC: B548ZZA Ultrasonography of Superior Vena Cava, Guidance (ICD-10-PCS; 2016-10-08)
DX: J96.21 Acute and chronic respiratory failure with hypoxia (principal); J18.0 Bronchopneumonia, unspecified organism; J44.1 Chronic obstructive pulmonary disease with (acute) exacerbation; J44.0 Chronic obstructive pulmonary disease with (acute) lower respiratory infection; E22.2 Syndrome of inappropriate secretion of antidiuretic hormone; I50.32 Chronic diastolic (congestive) heart failure; Z68.1 Body mass index [BMI] 19.9 or less, adult; J96.22 Acute and chronic respiratory failure with hypercapnia; C50.912 Malignant neoplasm of unspecified site of left female breast; C50.911 Malignant neoplasm of unspecified site of right female breast; Z66 Do not resuscitate; R13.10 Dysphagia, unspecified; I10 Essential (primary) hypertension; M19.90 Unspecified osteoarthritis, unspecified site; R91.1 Solitary pulmonary nodule; F41.9 Anxiety disorder, unspecified; M81.0 Age-related osteoporosis without current pathological fracture; Z79.899 Other long term (current) drug therapy; Z88.8 Allergy status to other drugs, medicaments and biological substances; Z90.710 Acquired absence of both cervix and uterus; Z90.13 Acquired absence of bilateral breasts and nipples; Z87.891 Personal history of nicotine dependence
CPT/HCPCS: 36415; 36569; 36600; 71010; 71020; 71250; 74220; 74230; 76937; 77001; 80048; 80053; 81001; 82533; 82803; 83605; 83735; 83880; 83930; 83935; 84300; 84484; 85025; 85610; 87040; 87086; 93005; 93010; 94660; 94762; 96365; 99291; G8978-GP; G8979-GP; J0692; J1642; J1956; J2920; J2930; J3475; J3490; J7030; J7512; J7620; J7685